=== PATIENT | male | born 1945 | race Caucasian/White ===

== ENCOUNTER → 2016-11-12 | Outpatient (CLI) | payer OTHER ==
[2016-11-12 12:40] LABS: BLOOD UREA NITROGEN 12 mg/dl (7-18); BUN/CREATININE RATIO 11.1 (10-20); CALCIUM 10.4 mg/dl (8.5-10.1); CARBON DIOXIDE 26 mmol/L (21-32); CHLORIDE 107 mmol/L (98-107); CHOLESTEROL 141 mg/dl (0-200); GLUCOSE 117 mg/dl (70-99); POTASSIUM 4.5 mmol/L (3.5-5.1); SODIUM 140 mmol/L (136-145)
[2016-11-12 12:44] LABS: CHOLESTEROL/HDL RATIO 2.4; HDL CHOLESTEROL 59 mg/dl; TRIGLYCERIDES 105 mg/dl (0-150); VERY LOW DENSITY LIPOPROT CALC 21 mg/dl
[2016-11-12 13:05] LABS: ESTIMATED AVERAGE GLUCOSE 128 mg/dl; HA1C FLAG Normal (Normal)
== END | disposition home or self-care (01) ==
LOC: C.LABSPEC 12:08
PROVIDERS: ATTEND Internal Medicine
DX: R73.9 Hyperglycemia, unspecified (principal); I10 Essential (primary) hypertension; E78.5 Hyperlipidemia, unspecified

== ENCOUNTER → 2017-05-20 | Outpatient (CLI) | payer OTHER ==
[2017-05-20 12:53] LABS: BLOOD UREA NITROGEN 12 mg/dl (7-18); BUN/CREATININE RATIO 11.3 (10-20); CARBON DIOXIDE 26 mmol/L (21-32); CHLORIDE 110 mmol/L (98-107); CHOLESTEROL 145 mg/dl (0-200); GLUCOSE 121 mg/dl (70-99); POTASSIUM 4.6 mmol/L (3.5-5.1); SODIUM 142 mmol/L (136-145); TRIGLYCERIDES 111 mg/dl (0-150); VERY LOW DENSITY LIPOPROT CALC 22 mg/dl
[2017-05-20 12:58] LABS: CHOLESTEROL/HDL RATIO 2.1; HDL CHOLESTEROL 69 mg/dl
[2017-05-20 13:06] LABS: ESTIMATED AVERAGE GLUCOSE 123 mg/dl; HA1C FLAG Normal (Normal)
== END | disposition home or self-care (01) ==
LOC: C.LABSPEC 12:14
PROVIDERS: ATTEND Internal Medicine
DX: Z00.00 Encounter for general adult medical examination without abnormal findings (principal); R73.9 Hyperglycemia, unspecified; E78.5 Hyperlipidemia, unspecified; I10 Essential (primary) hypertension

== ENCOUNTER → 2017-05-26 | Outpatient (CLI) | payer OTHER ==
[2017-05-26 12:51] LABS: MEAN CORPUSCULAR HGB CONC 32.4 g/dl (32-36); MEAN PLATELET VOLUME 10.9 fL (7.4-10.4); PLATELET COUNT 249 K/uL (130-400)
[2017-05-26 13:15] LABS: BASO ABS # 0.07 K/uL (0-0.2); BASOPHIL % 0.9 % (0-2); COMPLETE YES; EOSINOPHIL % 1.8 %; HEMATOCRIT 47.6 % (42-52); LYMPH ABS # 0.91 K/uL (1.2-3.4); LYMPHOCYTE % 11.5 %; MEAN CELL VOLUME 93.2 fL (80-100); MEAN CORPUSCULAR HEMOGLOBIN 30.1 pg (25-34); NEUTROPHILS % 48.7 %; RED BLOOD COUNT 5.11 M/uL (4.7-6.1); VARIANT LYM ABS # 1.67 K/uL; VARIANT LYMPHOCYTE % 21.2 %; WHITE BLOOD COUNT 7.87 K/uL (4.8-10.8)
[2017-05-26 13:26] LABS: ALT/SGPT 26 U/L (12-78); BLOOD UREA NITROGEN 15 mg/dl (7-18); BUN/CREATININE RATIO 14.4 (10-20); CALCIUM 10.6 mg/dl (8.5-10.1); CARBON DIOXIDE 26 mmol/L (21-32); CHLORIDE 108 mmol/L (98-107); CREATININE 1.01 mg/dl (0.60-1.40); GLUCOSE 107 mg/dl (70-99); POTASSIUM 4.7 mmol/L (3.5-5.1); SODIUM 139 mmol/L (136-145)
[2017-05-26 13:29] LABS: ALB/GLOB RATIO 0.9 (0.9-2); ALKALINE PHOSPHATASE 77 U/L (45-117); AST/SGOT 18 U/L (15-37)
== END | disposition home or self-care (01) ==
LOC: C.LABSPEC 12:28
PROVIDERS: ATTEND Internal Medicine
DX: E87.5 Hyperkalemia (principal)

== ENCOUNTER → 2017-06-08 | Outpatient (CLI) | payer OTHER ==
--- NOTE | 2017-06-08 23:13 | DIAGNOSTIC IMAGING REPORT ---
NUCLEAR MEDICINE PARATHYROID SCAN CLINICAL HISTORY: HYPERPARATHYROIDISM. COMPARISON STUDY: No previous studies for comparison. TECHNIQUE: 21.6 mCi of technetium 99m Cardiolite was injected IV at 3:10 PM on June 08, 2017. Planar and SPECT imaging was performed 15 minutes and 3 hours following injection. FINDINGS: Expected radiotracer deposition is noted within the thyroid gland and salivary glands on the early images. Delayed images show faint radiotracer retention projecting over the lower pole of the left thyroid lobe. No additional areas of significant retention are present. No areas of abnormal radiotracer uptake are present. IMPRESSION: No definite evidence for parathyroid adenoma. However, small faint focus of radiotracer retention within or adjacent to the lower pole of the left thyroid lobe raises the possibility of a left inferior parathyroid adenoma. Electronically signed by: Moe Oden M.D. 06/08/2017 11:12 PM Dictated Date/Time: 06/08/2017 7:15 PM
== END | disposition home or self-care (01) ==
LOC: C.NUCL 14:52
PROVIDERS: ATTEND Internal Medicine
DX: E21.3 Hyperparathyroidism, unspecified (principal)

== ENCOUNTER → 2017-11-18 | Outpatient (CLI) | payer OTHER ==
[2017-11-18 13:10] LABS: HEMOGLOBIN A1C 5.9 % (4.5-5.6)
[2017-11-18 13:13] LABS: BLOOD UREA NITROGEN 13 mg/dl (7-18); CALCIUM 10.6 mg/dl (8.5-10.1); CARBON DIOXIDE 27 mmol/L (21-32); CREATININE 1.08 mg/dl (0.60-1.40); GLUCOSE 110 mg/dl (70-99); POTASSIUM 4.7 mmol/L (3.5-5.1); SODIUM 139 mmol/L (136-145)
[2017-11-18 13:21] LABS: CHOLESTEROL 166 mg/dl (0-200); LDL CHOLESTEROL (DIRECT) 89 mg/dl
== END | disposition home or self-care (01) ==
LOC: C.LABSPEC 12:40
PROVIDERS: ATTEND Internal Medicine
DX: E78.5 Hyperlipidemia, unspecified (principal); I10 Essential (primary) hypertension; R73.9 Hyperglycemia, unspecified

== ENCOUNTER 2020-10-29 14:33 | Inpatient (IN) ==
[2020-10-29] MEDS ORDERED: SODIUM CHLORIDE 0.9% 1000ML 1,000 ML IV ONE (14:42)
[2020-10-29] MEDS ORDERED: cefTRIAXone SODIUM 1,000 MG/50 ML BAG IV STA (14:42)
[2020-10-29 15:25] LABS: iSTAT Blood Urea Nitrogen > 140 mg/dl (7-18); iSTAT Carbon Dioxide 21 mmol/L (24-31); iSTAT Chloride 127 mmol/L (101-112); iSTAT Creatinine 5.1 mg/dl (0.6-1.3); iSTAT Glucose 192 mg/dl (70-99); iSTAT Hematocrit 51 % (42-52); iSTAT Hemoglobin 17.3 g/dl (14.0-18.0); iSTAT Ionized Calcium 1.37 mmol/l (1.12-1.32); iSTAT Potassium 5.4 mmol/L (3.3-5.0); iSTAT Sodium 152 mmol/L (135-144)
[2020-10-29 15:25] LABS: Basophils # (auto) 0.02 K/uL (0-0.2); Basophils % (auto) 0.1 %; Hematocrit (blood only) 52.1 % (42-52); Hemoglobin 17.8 g/dL (14.0-18.0); Immature Granulocytes # (auto) 0.11 K/uL (0.00-0.02); Immature Granulocytes % (auto) 0.7 %; Lymphocytes # (auto) 2.22 K/uL (1.2-3.4); Lymphocytes % (auto) 13.3 %; Mean Corpuscular Hemoglobin 32.1 pg (25-34); Mean Corpuscular Hgb Conc 34.2 g/dL (32-36); Mean Platelet Volume 12.9 fL (7.4-10.4); Monocytes # (auto) 0.18 K/uL (0.11-0.59); Monocytes % (auto) 1.1 %; Neutrophils # (auto) 14.15 K/uL (1.4-6.5); Neutrophils % (auto) 84.8 %; Platelet Count 250 K/uL (130-400); RDW Coefficient of Variation 14.8 % (11.5-14.5); RDW Standard Deviation 51.2 fL (36.4-46.3); Red Blood Count 5.54 M/uL (4.7-6.1); White Blood Count 16.68 K/uL (4.8-10.8)
--- NOTE | 2020-10-29 15:28 | Emergency Department Note ---
Impression & Plan Acute alteration in mental status, Acute renal failure, Pressure ulcer, Hypothermia ED Provider Note NAME: DEB MEYER AGE: 75 SEX: M : 1945 ARRIVES VIA: Ambulance INFORMANT: The police and the prehospital personnel ED PROVIDER(S): Karan Luong DO CHIEF COMPLAINT: Altered mental status HPI: The patient is a 75-year-old male who presented to the emergency department for an evaluation of altered mental status. The patient presented to the emergency department with his significant other. Neither patient is able to give us any history. Both patients are obtunded and hypothermic. The patient himself was found on the floor facedown right beside his bed. I am unsure the patient's past medical history. I am unsure the patient's social history. I am unsure of the last known well time. Given the patient's condition as well as the condition of the home it does appear that this is something that happened in the recent past. The patient himself offers no history. He only mumbles and sometimes answers to his name. There is been no reported trauma but the patient is covered in bruising as well as pressure ulcers. No medications were accompanying the patient to the hospital. I have no past medical history in our system that I can find at this time. ROS: See above HPI for pertinent positives & negatives. Review of systems was obtained from the prehospital personnel otherwise it was unobtainable. PAST MEDICAL HISTORY: See Below PAST SURGICAL HISTORY: See Below FAMILY HISTORY: See Below SOCIAL HISTORY: See Below HOME MEDICATIONS: See Below ALLERGIES: See Below VITALS: See Below PHYSICAL EXAMINATION: GENERAL: The patient is listless and does not respond to questions. He is flailing his extremities around at times. He is pulling at the IVs but he does not respond purposefully. EYES: The conjunctivae are clear. The pupils are round and reactive. EARS, NOSE, MOUTH AND THROAT: The nose is without any evidence of any deformity. Mucous membranes are dry. There are abrasions to the right side of the scalp. NECK: The neck is nontender and supple. RESPIRATORY: Shallow respirations were noted. Rhonchi were scattered throughout. CARDIOVASCULAR: Regular rate and rhythm noted there no murmurs rubs or gallops normal S1 normal S2. GASTROINTESTINAL: The abdomen is covered in ecchymosis especially over the right lower chest wall in the right upper abdomen. There is no specific tenderness guarding or rigidity elicited. MUSCULOSKELETAL/EXTREMITIES: There is no evidence of gross deformity full range of motion is noted in the hips and shoulders. SKIN: Skin is cold and dry. Trace pedal edema was noted bilaterally. The patient is covered in pressure ulcers especially over both knees hips the right side of the chest shoulders and also has bruising in differing stages over almost his entire body. NEUROLOGIC: The patient does not follow commands. He is moving all extremities. Unable to assess orientation at this time. MEDICAL DECISION MAKING: The patient was a very complicated patient who presented to the emergency department by ambulance with altered mental status. It was very difficult to ascertain the patient's history as he was obtunded and would not answer questions or follow commands. Patient had multiple pressure ulcers on the chest and lower extremities. He was treated initially with IV fluids because his physical exam overall appeared to be consistent with volume depletion. He was hypothermic and placed on a warming blanket. He was reevaluated multiple times. He received IV fluids and IV antibiotics for presumed infection. I discussed the patient's laboratory and radiographic studies with the on-call [facility] hospitalist. They have agreed to evaluate the patient in the emergency department for further management and disposition. The patient's primary care physician also noted that the patient was in the emergency department and called to give further history. Apparently the patient normally lives with his significant other but they are both independent and care for themselves. The patient significant other is also here today with a very similar presentation. Triage Nursing notes reviewed. Prior medical records reviewed Vital Signs: reviewed and remarkable for hypotension tachypnea and hypothermia. Differential diagnosis: Infection, hypoglycemia, electrolyte abnormalities, overdose, toxicologic, cardiac sources, intracerebral event, neurologic, trauma, as well as other pathologies. ER treatment provided: See below Diagnostics interpreted by me: ECG: EKG was obtained in the emergency department. My interpretation is normal sinus rhythm at 77 bpm. There is no ectopy. Inferior ST segment depressions were noted. Early transition was also appreciated. No previous EKG was available for comparison. Cardiac Monitoring: An order was placed for continuous cardiac monitoring. The monitor shows a rate of 89 bpm with sinus rhythm. Laboratory studies: As stated above and show below. Imaging studies: See below Consultation(s): 1640: I discussed this case with Dr. Wilson. ED COURSE: Procedures: Femoral Central Venous Catheter Indication: Hypotension Catheter Type: Triple-lumen Location: Left femoral vein Verbal consent was obtained after the risks and benefits were explained, including but not limited to intra-abdominal injury, vessel injury, bleeding, scarring, infection, pain, and bone/joint/nerve damage. At this time, the risks of the procedure are less than the risks of NOT performing the procedure. A time out was taken and the correct patient and site identified. The patient was placed in the supine position and the skin was prepped in the standard fashion with chlorhexidine and full sterile drapes applied. The proper landmarks were identified, anesthetized with 1% lidocaine without epinephrine, and the needle was inserted through the skin in the standard fashion. The needle was carefully advanced into blood vessel lumen. The guidewire was placed uneventfully. The vessel is dilated and the catheter was placed. It was sutured into position. There was good blood return from all ports. The patient tolerated the procedure well and there were no complications. PDMP:reviewed and no issues Critical Care: I have personally spent greater than 65 minutes of critical care time in the direct management of this patient. This includes bedside care, interpretation of diagnostic studies, and testing, discussion with consultants, patient, and family members, and other required patient management activities. This 65 minutes is in excess of all separately billable procedures. Past Med/Surg History Medical History (Updated 10/29/20 @ 19:22 by Karan Luong DO) High cholesterol Hypernatremia Hypertension Social History Smoking Status: Unknown if ever smoked Preferred Language: Kyrgyz Allergies Allergies Allergy/AdvReac Type Severity Reaction Status Date / Time No Known Allergies Unverified 10/29/20 15:32 Home Meds Home Medications Medication Instructions Recorded Confirmed Super Beta Prostate 1 tab PO DAILY 10/29/20 10/29/20 lisinopril 20 mg PO DAILY 10/29/20 10/29/20 simvastatin 20 mg PO DAILY 10/29/20 10/29/20 Results & Data (ED) Vital Signs Vital Signs - 24 hr 10/29/20 14:26 10/29/20 14:40 10/29/20 14:42 Temperature 33 C L Temperature Source Rectal Pulse Rate 60 96 H Pulse Rate from SpO2 Sensor 90 Respiratory Rate 20 31 H Respiratory Effort / Characteristics Spontaneous Labored Labored Blood Pressure 109/54 L 138/116 H Blood Pressure Mean 72 123 Pulse Oximetry 100 100 100 Oxygen Delivery Method Room Air Room Air Sepsis Recent Fever Within 48 Hours No Sepsis New/Unexplained Change in Mental Status Yes Sepsis Action Taken by Nursing Physician Notified 10/29/20 15:21 10/29/20 15:42 10/29/20 15:46 Temperature Temperature Source Pulse Rate 70 67 Pulse Rate from SpO2 Sensor 175 H 147 H Respiratory Rate 22 22 Respiratory Effort / Characteristics Blood Pressure 106/60 147/83 H 99/65 L Blood Pressure Mean 75 104 76 Pulse Oximetry 91 90 Oxygen Delivery Method Sepsis Recent Fever Within 48 Hours Sepsis New/Unexplained Change in Mental Status Sepsis Action Taken by Nursing 10/29/20 16:00 10/29/20 16:15 10/29/20 16:30 Temperature Temperature Source Pulse Rate 67 66 68 Pulse Rate from SpO2 Sensor 66 68 68 Respiratory Rate 21 21 22 Respiratory Effort / Characteristics Blood Pressure 111/61 109/54 L 98/52 L Blood Pressure Mean 77 72 67 Pulse Oximetry 100 100 100 Oxygen Delivery Method Sepsis Recent Fever Within 48 Hours Sepsis New/Unexplained Change in Mental Status Sepsis Action Taken by Nursing 10/29/20 16:46 10/29/20 17:00 10/29/20 17:16 Temperature Temperature Source Pulse Rate 71 Pulse Rate from SpO2 Sensor 72 76 70 Respiratory Rate 24 23 25 H Respiratory Effort / Characteristics Blood Pressure 102/56 L 120/58 L 90/57 L Blood Pressure Mean 71 78 68 Pulse Oximetry 100 98 100 Oxygen Delivery Method Sepsis Recent Fever Within 48 Hours Sepsis New/Unexplained Change in Mental Status Sepsis Action Taken by Nursing 10/29/20 17:30 10/29/20 17:45 10/29/20 18:00 Temperature Temperature Source Pulse Rate 67 67 73 Pulse Rate from SpO2 Sensor 67 66 79 Respiratory Rate 22 24 23 Respiratory Effort / Characteristics Blood Pressure 87/49 L 90/47 L 109/61 Blood Pressure Mean 61 61 77 Pulse Oximetry 100 100 100 Oxygen Delivery Method Sepsis Recent Fever Within 48 Hours Sepsis New/Unexplained Change in Mental Status Sepsis Action Taken by Nursing 10/29/20 18:15 10/29/20 18:28 10/29/20 18:30 Temperature Temperature Source Pulse Rate 75 79 75 Pulse Rate from SpO2 Sensor 75 83 76 Respiratory Rate 23 20 24 Respiratory Effort / Characteristics Blood Pressure 83/46 L 105/54 L 92/47 L Blood Pressure Mean 58 71 62 Pulse Oximetry 100 98 98 Oxygen Delivery Method Sepsis Recent Fever Within 48 Hours Sepsis New/Unexplained Change in Mental Status Sepsis Action Taken by Nursing 10/29/20 18:45 Temperature Temperature Source Pulse Rate 84 Pulse Rate from SpO2 Sensor 86 Respiratory Rate 25 H Respiratory Effort / Characteristics Blood Pressure 98/45 L Blood Pressure Mean 62 Pulse Oximetry 100 Oxygen Delivery Method Sepsis Recent Fever Within 48 Hours Sepsis New/Unexplained Change in Mental Status Sepsis Action Taken by [facility] Medications Current Medication List: was personally reviewed by me Laboratory Data Attestation: I reviewed the patient's lab results. Result diagrams: 10/29/20 14:59 10/29/20 16:08 Lab Results 10/29/20 10/29/20 10/29/20 Range/Units 14:52 14:52 14:59 WBC (4.8-10.8) K/uL RBC (4.7-6.1) M/uL Hgb (14.0-18.0) g/dL POC Hgb (14.0-18.0) g/dl Hct (42-52) % POC Hct (42-52) % MCV (80-100) fL MCH (25-34) pg MCHC (32-36) g/dL RDW Std Deviation (36.4-46.3) fL RDW Coeff of Juan (11.5-14.5) % Plt Count (130-400) K/uL MPV (7.4-10.4) fL Immature Gran % (Auto) % Neut % (Auto) % Lymph % (Auto) % [place] % (Auto) % Eos % (Auto) % Baso % (Auto) % Neut # (Auto) (1.4-6.5) K/uL Lymph # (Auto) (1.2-3.4) K/uL [place] # (Auto) (0.11-0.59) K/uL Eos # (Auto) (0-0.5) K/uL Baso # (Auto) (0-0.2) K/uL Immature Gran # (Auto) (0.00-0.02) K/uL PT INR APTT PTT Ratio VBG pH (7.36-7.41) VBG pCO2 (38-50) mmHg VBG pO2 mmHg VBG HCO3 mmol/L VBG O2 Saturation % VBG Base Excess mEq/L Carboxyhemoglobin % THgb Barometric Pressure mm/Hg POC Sodium (135-144) mmol/L Sodium POC Potassium (3.3-5.0) mmol/L Potassium POC Chloride (101-112) mmol/L Chloride Carbon Dioxide POC Total CO2 (24-31) mmol/L Anion Gap POC Anion Gap (16-25) mmol/L POC BUN (7-18) mg/dl BUN Creatinine POC Creatinine (0.6-1.3) mg/dl Est Cr Clr Drug Dosing Est GFR ( Amer) Est GFR (Non-Af Amer) BUN/Creatinine Ratio Glucose POC Glucose (other) (70-99) mg/dl Osmolality Lactate (0.4-2.0) mmol/L Calcium POC Ioniz Calcium Mick (1.12-1.32) mmol/l Magnesium Total Bilirubin AST ALT Alkaline Phosphatase Ammonia (11-32) umol/L Total Creatine Kinase CK-MB (CK-2) CK/CKMB % Calc Troponin I Total Protein Albumin Globulin Albumin/Globulin Ratio Procalcitonin TSH Urine Color Dark Yellow Urine Appearance Cloudy A (Clear) Urine pH 5.0 (4.5-7.5) Ur Specific [place] 1.022 (1.000-1.030) Urine Protein Negative (Negative) Urine Glucose (UA) Negative (Negative) Urine Ketones Trace H (Negative) Urine Blood 3+ H (Negative) Urine Nitrite Negative (Negative) Urine Bilirubin Negative (Negative) Urine Urobilinogen Negative (Negative) Ur Leukocyte Esterase Trace H (Negative) Urine WBC (Auto) 1-5 (0-5) /hpf Urine RBC (Auto) 5-10 H (0-4) /hpf U Hyaline Cast (Auto) >30 H (0-5) /lpf U Epithel Cells (Auto) 10-20 H (0-5) /lpf Urine Bacteria (Auto) Negative (Negative) Amorphous Sediment Present A (None Prsent) Granular Casts 1-5 H (0) /lpf Urine Yeast Not Reportable Urine Opiates Screen Neg (Neg) Ur Methadone, Qual Neg (Neg) Urine Barbiturates Neg (Neg) Ur Phencyclidine (PCP) Neg (Neg) U Amphetamin/Meth Scrn Neg (Neg) MDMA (Ecstasy) Screen Neg (Neg) U Benzodiazepines Scrn Neg (Neg) Ur Cocaine Metabolite Neg (Neg) U Marijuana (THC) Screen Neg (Neg) Ethyl Alcohol mg/dL (0-3) mg/dl COVID-19 Eval Order SARS-CoV-2 (PCR) (Negative) Influenza Type A (PCR) (Neg) Influenza Type B (PCR) (Neg) RSV (RT-PCR) (Neg) Blood Type Cancelled Antibody Screen Cancelled 10/29/20 10/29/20 10/29/20 Range/Units 14:59 14:59 14:59 WBC 16.68 H (4.8-10.8) K/uL RBC 5.54 (4.7-6.1) M/uL Hgb 17.8 (14.0-18.0) g/dL POC Hgb (14.0-18.0) g/dl Hct 52.1 H (42-52) % POC Hct (42-52) % MCV 94.0 (80-100) fL MCH 32.1 (25-34) pg MCHC 34.2 (32-36) g/dL RDW Std Deviation 51.2 H (36.4-46.3) fL RDW Coeff of Juan 14.8 H (11.5-14.5) % Plt Count 250 (130-400) K/uL MPV 12.9 H (7.4-10.4) fL Immature Gran % (Auto) 0.7 % Neut % (Auto) 84.8 % Lymph % (Auto) 13.3 % [place] % (Auto) 1.1 % Eos % (Auto) 0.0 % Baso % (Auto) 0.1 % Neut # (Auto) 14.15 H (1.4-6.5) K/uL Lymph # (Auto) 2.22 (1.2-3.4) K/uL [place] # (Auto) 0.18 (0.11-0.59) K/uL Eos # (Auto) 0.00 (0-0.5) K/uL Baso # (Auto) 0.02 (0-0.2) K/uL Immature Gran # (Auto) 0.11 H (0.00-0.02) K/uL PT Cancelled INR Cancelled APTT Cancelled PTT Ratio Cancelled VBG pH (7.36-7.41) VBG pCO2 (38-50) mmHg VBG pO2 mmHg VBG HCO3 mmol/L VBG O2 Saturation % VBG Base Excess mEq/L Carboxyhemoglobin % THgb Barometric Pressure mm/Hg POC Sodium (135-144) mmol/L Sodium Cancelled POC Potassium (3.3-5.0) mmol/L Potassium Cancelled POC Chloride (101-112) mmol/L Chloride Cancelled Carbon Dioxide Cancelled POC Total CO2 (24-31) mmol/L Anion Gap Cancelled POC Anion Gap (16-25) mmol/L POC BUN (7-18) mg/dl BUN Cancelled Creatinine Cancelled POC Creatinine (0.6-1.3) mg/dl Est Cr Clr Drug Dosing Cancelled Est GFR ( Amer) Cancelled Est GFR (Non-Af Amer) Cancelled BUN/Creatinine Ratio Cancelled Glucose Cancelled POC Glucose (other) (70-99) mg/dl Osmolality Lactate (0.4-2.0) mmol/L Calcium Cancelled POC Ioniz Calcium Mick (1.12-1.32) mmol/l Magnesium Cancelled Total Bilirubin Cancelled AST Cancelled ALT Cancelled Alkaline Phosphatase Cancelled Ammonia (11-32) umol/L Total Creatine Kinase Cancelled CK-MB (CK-2) Cancelled CK/CKMB % Calc Cancelled Troponin I Cancelled Total Protein Cancelled Albumin Cancelled Globulin Cancelled Albumin/Globulin Ratio Cancelled Procalcitonin TSH Cancelled Urine Color Urine Appearance (Clear) Urine pH (4.5-7.5) Ur Specific [place] (1.000-1.030) Urine Protein (Negative) Urine Glucose (UA) (Negative) Urine Ketones (Negative) Urine Blood (Negative) Urine Nitrite (Negative) Urine Bilirubin (Negative) Urine Urobilinogen (Negative) Ur Leukocyte Esterase (Negative) Urine WBC (Auto) (0-5) /hpf Urine RBC (Auto) (0-4) /hpf U Hyaline Cast (Auto) (0-5) /lpf U Epithel Cells (Auto) (0-5) /lpf Urine Bacteria (Auto) (Negative) Amorphous Sediment (None Prsent) Granular Casts (0) /lpf Urine Yeast Urine Opiates Screen (Neg) Ur Methadone, Qual (Neg) Urine Barbiturates (Neg) Ur Phencyclidine (PCP) (Neg) U Amphetamin/Meth Scrn (Neg) MDMA (Ecstasy) Screen (Neg) U Benzodiazepines Scrn (Neg) Ur Cocaine Metabolite (Neg) U Marijuana (THC) Screen (Neg) Ethyl Alcohol mg/dL (0-3) mg/dl COVID-19 Eval Order SARS-CoV-2 (PCR) (Negative) Influenza Type A (PCR) (Neg) Influenza Type B (PCR) (Neg) RSV (RT-PCR) (Neg) Blood Type Antibody Screen 10/29/20 10/29/20 10/29/20 Range/Units 14:59 14:59 14:59 WBC (4.8-10.8) K/uL RBC (4.7-6.1) M/uL Hgb (14.0-18.0) g/dL POC Hgb (14.0-18.0) g/dl Hct (42-52) % POC Hct (42-52) % MCV (80-100) fL MCH (25-34) pg MCHC (32-36) g/dL RDW Std Deviation (36.4-46.3) fL RDW Coeff of Juan (11.5-14.5) % Plt Count (130-400) K/uL MPV (7.4-10.4) fL Immature Gran % (Auto) % Neut % (Auto) % Lymph % (Auto) % [place] % (Auto) % Eos % (Auto) % Baso % (Auto) % Neut # (Auto) (1.4-6.5) K/uL Lymph # (Auto) (1.2-3.4) K/uL [place] # (Auto) (0.11-0.59) K/uL Eos # (Auto) (0-0.5) K/uL Baso # (Auto) (0-0.2) K/uL Immature Gran # (Auto) (0.00-0.02) K/uL PT INR APTT PTT Ratio VBG pH (7.36-7.41) VBG pCO2 (38-50) mmHg VBG pO2 mmHg VBG HCO3 mmol/L VBG O2 Saturation % VBG Base Excess mEq/L Carboxyhemoglobin % THgb Barometric Pressure mm/Hg POC Sodium (135-144) mmol/L Sodium POC Potassium (3.3-5.0) mmol/L Potassium POC Chloride (101-112) mmol/L Chloride Carbon Dioxide POC Total CO2 (24-31) mmol/L Anion Gap POC Anion Gap (16-25) mmol/L POC BUN (7-18) mg/dl BUN Creatinine POC Creatinine (0.6-1.3) mg/dl Est Cr Clr Drug Dosing Est GFR ( Amer) Est GFR (Non-Af Amer) BUN/Creatinine Ratio Glucose POC Glucose (other) (70-99) mg/dl Osmolality Cancelled Lactate 4.4 H* (0.4-2.0) mmol/L Calcium POC Ioniz Calcium Mick (1.12-1.32) mmol/l Magnesium Total Bilirubin AST ALT Alkaline Phosphatase Ammonia 21.4 (11-32) umol/L Total Creatine Kinase CK-MB (CK-2) CK/CKMB % Calc Troponin I Total Protein Albumin Globulin Albumin/Globulin Ratio Procalcitonin TSH Urine Color Urine Appearance (Clear) Urine pH (4.5-7.5) Ur Specific [place] (1.000-1.030) Urine Protein (Negative) Urine Glucose (UA) (Negative) Urine Ketones (Negative) Urine Blood (Negative) Urine Nitrite (Negative) Urine Bilirubin (Negative) Urine Urobilinogen (Negative) Ur Leukocyte Esterase (Negative) Urine WBC (Auto) (0-5) /hpf Urine RBC (Auto) (0-4) /hpf U Hyaline Cast (Auto) (0-5) /lpf U Epithel Cells (Auto) (0-5) /lpf Urine Bacteria (Auto) (Negative) Amorphous Sediment (None Prsent) Granular Casts (0) /lpf Urine Yeast Urine Opiates Screen (Neg) Ur Methadone, Qual (Neg) Urine Barbiturates (Neg) Ur Phencyclidine (PCP) (Neg) U Amphetamin/Meth Scrn (Neg) MDMA (Ecstasy) Screen (Neg) U Benzodiazepines Scrn (Neg) Ur Cocaine Metabolite (Neg) U Marijuana (THC) Screen (Neg) Ethyl Alcohol mg/dL (0-3) mg/dl COVID-19 Eval Order SARS-CoV-2 (PCR) (Negative) Influenza Type A (PCR) (Neg) Influenza Type B (PCR) (Neg) RSV (RT-PCR) (Neg) Blood Type Antibody Screen 10/29/20 10/29/20 10/29/20 Range/Units 14:59 14:59 14:59 WBC (4.8-10.8) K/uL RBC (4.7-6.1) M/uL Hgb (14.0-18.0) g/dL POC Hgb (14.0-18.0) g/dl Hct (42-52) % POC Hct (42-52) % MCV (80-100) fL MCH (25-34) pg MCHC (32-36) g/dL RDW Std Deviation (36.4-46.3) fL RDW Coeff of Juan (11.5-14.5) % Plt Count (130-400) K/uL MPV (7.4-10.4) fL Immature Gran % (Auto) % Neut % (Auto) % Lymph % (Auto) % [place] % (Auto) % Eos % (Auto) % Baso % (Auto) % Neut # (Auto) (1.4-6.5) K/uL Lymph # (Auto) (1.2-3.4) K/uL [place] # (Auto) (0.11-0.59) K/uL Eos # (Auto) (0-0.5) K/uL Baso # (Auto) (0-0.2) K/uL Immature Gran # (Auto) (0.00-0.02) K/uL PT INR APTT PTT Ratio VBG pH 7.35 L (7.36-7.41) VBG pCO2 36 L (38-50) mmHg VBG pO2 39 mmHg VBG HCO3 20 mmol/L VBG O2 Saturation 70.2 % VBG Base Excess -5.1 mEq/L Carboxyhemoglobin % THgb Barometric Pressure 738.4 mm/Hg POC Sodium (135-144) mmol/L Sodium POC Potassium (3.3-5.0) mmol/L Potassium POC Chloride (101-112) mmol/L Chloride Carbon Dioxide POC Total CO2 (24-31) mmol/L Anion Gap POC Anion Gap (16-25) mmol/L POC BUN (7-18) mg/dl BUN Creatinine POC Creatinine (0.6-1.3) mg/dl Est Cr Clr Drug Dosing Est GFR ( Amer) Est GFR (Non-Af Amer) BUN/Creatinine Ratio Glucose POC Glucose (other) (70-99) mg/dl Osmolality Lactate (0.4-2.0) mmol/L Calcium POC Ioniz Calcium Mick (1.12-1.32) mmol/l Magnesium Total Bilirubin AST ALT Alkaline Phosphatase Ammonia (11-32) umol/L Total Creatine Kinase CK-MB (CK-2) CK/CKMB % Calc Troponin I Total Protein Albumin Globulin Albumin/Globulin Ratio Procalcitonin Cancelled TSH Urine Color Urine Appearance (Clear) Urine pH (4.5-7.5) Ur Specific [place] (1.000-1.030) Urine Protein (Negative) Urine Glucose (UA) (Negative) Urine Ketones (Negative) Urine Blood (Negative) Urine Nitrite (Negative) Urine Bilirubin (Negative) Urine Urobilinogen (Negative) Ur Leukocyte Esterase (Negative) Urine WBC (Auto) (0-5) /hpf Urine RBC (Auto) (0-4) /hpf U Hyaline Cast (Auto) (0-5) /lpf U Epithel Cells (Auto) (0-5) /lpf Urine Bacteria (Auto) (Negative) Amorphous Sediment (None Prsent) Granular Casts (0) /lpf Urine Yeast Urine Opiates Screen (Neg) Ur Methadone, Qual (Neg) Urine Barbiturates (Neg) Ur Phencyclidine (PCP) (Neg) U Amphetamin/Meth Scrn (Neg) MDMA (Ecstasy) Screen (Neg) U Benzodiazepines Scrn (Neg) Ur Cocaine Metabolite (Neg) U Marijuana (THC) Screen (Neg) Ethyl Alcohol mg/dL < 3.0 (0-3) mg/dl COVID-19 Eval Order SARS-CoV-2 (PCR) (Negative) Influenza Type A (PCR) (Neg) Influenza Type B (PCR) (Neg) RSV (RT-PCR) (Neg) Blood Type Antibody Screen 10/29/20 10/29/20 10/29/20 Range/Units 14:59 15:00 15:00 WBC (4.8-10.8) K/uL RBC (4.7-6.1) M/uL Hgb (14.0-18.0) g/dL POC Hgb (14.0-18.0) g/dl Hct (42-52) % POC Hct (42-52) % MCV (80-100) fL MCH (25-34) pg MCHC (32-36) g/dL RDW Std Deviation (36.4-46.3) fL RDW Coeff of Juan (11.5-14.5) % Plt Count (130-400) K/uL MPV (7.4-10.4) fL Immature Gran % (Auto) % Neut % (Auto) % Lymph % (Auto) % [place] % (Auto) % Eos % (Auto) % Baso % (Auto) % Neut # (Auto) (1.4-6.5) K/uL Lymph # (Auto) (1.2-3.4) K/uL [place] # (Auto) (0.11-0.59) K/uL Eos # (Auto) (0-0.5) K/uL Baso # (Auto) (0-0.2) K/uL Immature Gran # (Auto) (0.00-0.02) K/uL PT INR APTT PTT Ratio VBG pH (7.36-7.41) VBG pCO2 (38-50) mmHg VBG pO2 mmHg VBG HCO3 mmol/L VBG O2 Saturation % VBG Base Excess mEq/L Carboxyhemoglobin 0.0 % THgb Barometric Pressure mm/Hg POC Sodium (135-144) mmol/L Sodium POC Potassium (3.3-5.0) mmol/L Potassium POC Chloride (101-112) mmol/L Chloride Carbon Dioxide POC Total CO2 (24-31) mmol/L Anion Gap POC Anion Gap (16-25) mmol/L POC BUN (7-18) mg/dl BUN Creatinine POC Creatinine (0.6-1.3) mg/dl Est Cr Clr Drug Dosing Est GFR ( Amer) Est GFR (Non-Af Amer) BUN/Creatinine Ratio Glucose POC Glucose (other) (70-99) mg/dl Osmolality Lactate (0.4-2.0) mmol/L Calcium POC Ioniz Calcium Mick (1.12-1.32) mmol/l Magnesium Total Bilirubin AST ALT Alkaline Phosphatase Ammonia (11-32) umol/L Total Creatine Kinase CK-MB (CK-2) CK/CKMB % Calc Troponin I Total Protein Albumin Globulin Albumin/Globulin Ratio Procalcitonin TSH Urine Color Urine Appearance (Clear) Urine pH (4.5-7.5) Ur Specific [place] (1.000-1.030) Urine Protein (Negative) Urine Glucose (UA) (Negative) Urine Ketones (Negative) Urine Blood (Negative) Urine Nitrite (Negative) Urine Bilirubin (Negative) Urine Urobilinogen (Negative) Ur Leukocyte Esterase (Negative) Urine WBC (Auto) (0-5) /hpf Urine RBC (Auto) (0-4) /hpf U Hyaline Cast (Auto) (0-5) /lpf U Epithel Cells (Auto) (0-5) /lpf Urine Bacteria (Auto) (Negative) Amorphous Sediment (None Prsent) Granular Casts (0) /lpf Urine Yeast Urine Opiates Screen (Neg) Ur Methadone, Qual (Neg) Urine Barbiturates (Neg) Ur Phencyclidine (PCP) (Neg) U Amphetamin/Meth Scrn (Neg) MDMA (Ecstasy) Screen (Neg) U Benzodiazepines Scrn (Neg) Ur Cocaine Metabolite (Neg) U Marijuana (THC) Screen (Neg) Ethyl Alcohol mg/dL (0-3) mg/dl COVID-19 Eval Order CovFluRsv at [facility] SARS-CoV-2 (PCR) NEGATIVE (Negative) Influenza Type A (PCR) Negative (Neg) Influenza Type B (PCR) Negative (Neg) RSV (RT-PCR) Negative (Neg) Blood Type Antibody Screen 10/29/20 10/29/20 10/29/20 Range/Units 15:12 16:08 16:08 WBC (4.8-10.8) K/uL RBC (4.7-6.1) M/uL Hgb (14.0-18.0) g/dL POC Hgb 17.3 (14.0-18.0) g/dl Hct (42-52) % POC Hct 51 (42-52) % MCV (80-100) fL MCH (25-34) pg MCHC (32-36) g/dL RDW Std Deviation (36.4-46.3) fL RDW Coeff of Juan (11.5-14.5) % Plt Count (130-400) K/uL MPV (7.4-10.4) fL Immature Gran % (Auto) % Neut % (Auto) % Lymph % (Auto) % [place] % (Auto) % Eos % (Auto) % Baso % (Auto) % Neut # (Auto) (1.4-6.5) K/uL Lymph # (Auto) (1.2-3.4) K/uL Taliaferro # (Auto) (0.11-0.59) K/uL Eos # (Auto) (0-0.5) K/uL Baso # (Auto) (0-0.2) K/uL Immature Gran # (Auto) (0.00-0.02) K/uL PT 12.0 INR 1.2 H APTT 23.0 PTT Ratio 0.9 VBG pH (7.36-7.41) VBG pCO2 (38-50) mmHg VBG pO2 mmHg VBG HCO3 mmol/L VBG O2 Saturation % VBG Base Excess mEq/L Carboxyhemoglobin % THgb Barometric Pressure mm/Hg POC Sodium 152 H (135-144) mmol/L Sodium POC Potassium 5.4 H (3.3-5.0) mmol/L Potassium POC Chloride 127 H (101-112) mmol/L Chloride Carbon Dioxide POC Total CO2 21 L (24-31) mmol/L Anion Gap POC Anion Gap 10.0 L (16-25) mmol/L POC BUN > 140 H* (7-18) mg/dl BUN Creatinine POC Creatinine 5.1 H* (0.6-1.3) mg/dl Est Cr Clr Drug Dosing Est GFR ( Amer) Est GFR (Non-Af Amer) BUN/Creatinine Ratio Glucose POC Glucose (other) 192 H (70-99) mg/dl Osmolality 405 H* Lactate (0.4-2.0) mmol/L Calcium POC Ioniz Calcium Mick 1.37 H (1.12-1.32) mmol/l Magnesium Total Bilirubin AST ALT Alkaline Phosphatase Ammonia (11-32) umol/L Total Creatine Kinase CK-MB (CK-2) CK/CKMB % Calc Troponin I Total Protein Albumin Globulin Albumin/Globulin Ratio Procalcitonin TSH Urine Color Urine Appearance (Clear) Urine pH (4.5-7.5) Ur Specific [place] (1.000-1.030) Urine Protein (Negative) Urine Glucose (UA) (Negative) Urine Ketones (Negative) Urine Blood (Negative) Urine Nitrite (Negative) Urine Bilirubin (Negative) Urine Urobilinogen (Negative) Ur Leukocyte Esterase (Negative) Urine WBC (Auto) (0-5) /hpf Urine RBC (Auto) (0-4) /hpf U Hyaline Cast (Auto) (0-5) /lpf U Epithel Cells (Auto) (0-5) /lpf Urine Bacteria (Auto) (Negative) Amorphous Sediment (None Prsent) Granular Casts (0) /lpf Urine Yeast Urine Opiates Screen (Neg) Ur Methadone, Qual (Neg) Urine Barbiturates (Neg) Ur Phencyclidine (PCP) (Neg) U Amphetamin/Meth Scrn (Neg) MDMA (Ecstasy) Screen (Neg) U Benzodiazepines Scrn (Neg) Ur Cocaine Metabolite (Neg) U Marijuana (THC) Screen (Neg) Ethyl Alcohol mg/dL (0-3) mg/dl COVID-19 Eval Order SARS-CoV-2 (PCR) (Negative) Influenza Type A (PCR) (Neg) Influenza Type B (PCR) (Neg) RSV (RT-PCR) (Neg) Blood Type Antibody Screen 10/29/20 10/29/20 10/29/20 Range/Units 16:08 16:08 16:59 WBC (4.8-10.8) K/uL RBC (4.7-6.1) M/uL Hgb (14.0-18.0) g/dL POC Hgb (14.0-18.0) g/dl Hct (42-52) % POC Hct (42-52) % MCV (80-100) fL MCH (25-34) pg MCHC (32-36) g/dL RDW Std Deviation (36.4-46.3) fL RDW Coeff of Juan (11.5-14.5) % Plt Count (130-400) K/uL MPV (7.4-10.4) fL Immature Gran % (Auto) % Neut % (Auto) % Lymph % (Auto) % Taliaferro % (Auto) % Eos % (Auto) % Baso % (Auto) % Neut # (Auto) (1.4-6.5) K/uL Lymph # (Auto) (1.2-3.4) K/uL [place] # (Auto) (0.11-0.59) K/uL Eos # (Auto) (0-0.5) K/uL Baso # (Auto) (0-0.2) K/uL Immature Gran # (Auto) (0.00-0.02) K/uL PT INR APTT PTT Ratio VBG pH (7.36-7.41) VBG pCO2 (38-50) mmHg VBG pO2 mmHg VBG HCO3 mmol/L VBG O2 Saturation % VBG Base Excess mEq/L Carboxyhemoglobin % THgb Barometric Pressure mm/Hg POC Sodium (135-144) mmol/L Sodium 160 H* POC Potassium (3.3-5.0) mmol/L Potassium 3.6 POC Chloride (101-112) mmol/L Chloride 132 H Carbon Dioxide 15 L POC Total CO2 (24-31) mmol/L Anion Gap 13.0 H POC Anion Gap (16-25) mmol/L POC BUN (7-18) mg/dl BUN 156 H Creatinine 3.61 H POC Creatinine (0.6-1.3) mg/dl Est Cr Clr Drug Dosing 20.4 Est GFR ( Amer) 18.1 Est GFR (Non-Af Amer) 15.6 BUN/Creatinine Ratio 43.2 H Glucose 176 H POC Glucose (other) (70-99) mg/dl Osmolality Lactate 2.8 H* (0.4-2.0) mmol/L Calcium 8.3 L POC Ioniz Calcium Mick (1.12-1.32) mmol/l Magnesium 2.6 H Total Bilirubin 0.4 AST 64 H ALT 108 H Alkaline Phosphatase 54 Ammonia (11-32) umol/L Total Creatine Kinase 1602 H CK-MB (CK-2) 22.3 H CK/CKMB % Calc 1.4 Troponin I 0.034 Total Protein 4.7 L Albumin 2.0 L Globulin 2.7 Albumin/Globulin Ratio 0.7 L Procalcitonin 0.25 TSH 0.719 Urine Color Urine Appearance (Clear) Urine pH (4.5-7.5) Ur Specific [place] (1.000-1.030) Urine Protein (Negative) Urine Glucose (UA) (Negative) Urine Ketones (Negative) Urine Blood (Negative) Urine Nitrite (Negative) Urine Bilirubin (Negative) Urine Urobilinogen (Negative) Ur Leukocyte Esterase (Negative) Urine WBC (Auto) (0-5) /hpf Urine RBC (Auto) (0-4) /hpf U Hyaline Cast (Auto) (0-5) /lpf U Epithel Cells (Auto) (0-5) /lpf Urine Bacteria (Auto) (Negative) Amorphous Sediment (None Prsent) Granular Casts (0) /lpf Urine Yeast Urine Opiates Screen (Neg) Ur Methadone, Qual (Neg) Urine Barbiturates (Neg) Ur Phencyclidine (PCP) (Neg) U Amphetamin/Meth Scrn (Neg) MDMA (Ecstasy) Screen (Neg) U Benzodiazepines Scrn (Neg) Ur Cocaine Metabolite (Neg) U Marijuana (THC) Screen (Neg) Ethyl Alcohol mg/dL (0-3) mg/dl COVID-19 Eval Order SARS-CoV-2 (PCR) (Negative) Influenza Type A (PCR) (Neg) Influenza Type B (PCR) (Neg) RSV (RT-PCR) (Neg) Blood Type Antibody Screen 10/29/20 10/29/20 Range/Units 17:01 17:01 WBC (4.8-10.8) K/uL RBC (4.7-6.1) M/uL Hgb (14.0-18.0) g/dL POC Hgb (14.0-18.0) g/dl Hct (42-52) % POC Hct (42-52) % MCV (80-100) fL MCH (25-34) pg MCHC (32-36) g/dL RDW Std Deviation (36.4-46.3) fL RDW Coeff of Juan (11.5-14.5) % Plt Count (130-400) K/uL MPV (7.4-10.4) fL Immature Gran % (Auto) % Neut % (Auto) % Lymph % (Auto) % [place]ferro % (Auto) % Eos % (Auto) % Baso % (Auto) % Neut # (Auto) (1.4-6.5) K/uL Lymph # (Auto) (1.2-3.4) K/uL [place] # (Auto) (0.11-0.59) K/uL Eos # (Auto) (0-0.5) K/uL Baso # (Auto) (0-0.2) K/uL Immature Gran # (Auto) (0.00-0.02) K/uL PT INR APTT PTT Ratio VBG pH (7.36-7.41) VBG pCO2 (38-50) mmHg VBG pO2 mmHg VBG HCO3 mmol/L VBG O2 Saturation % VBG Base Excess mEq/L Carboxyhemoglobin % THgb Barometric Pressure mm/Hg POC Sodium (135-144) mmol/L Sodium POC Potassium (3.3-5.0) mmol/L Potassium POC Chloride (101-112) mmol/L Chloride Carbon Dioxide POC Total CO2 (24-31) mmol/L Anion Gap POC Anion Gap (16-25) mmol/L POC BUN (7-18) mg/dl BUN Creatinine POC Creatinine (0.6-1.3) mg/dl Est Cr Clr Drug Dosing Est GFR ( Amer) Est GFR (Non-Af Amer) BUN/Creatinine Ratio Glucose POC Glucose (other) (70-99) mg/dl Osmolality Lactate (0.4-2.0) mmol/L Calcium POC Ioniz Calcium Mick (1.12-1.32) mmol/l Magnesium Total Bilirubin AST ALT Alkaline Phosphatase Ammonia (11-32) umol/L Total Creatine Kinase CK-MB (CK-2) CK/CKMB % Calc Troponin I Total Protein Albumin Globulin Albumin/Globulin Ratio Procalcitonin TSH Urine Color Urine Appearance (Clear) Urine pH (4.5-7.5) Ur Specific [place] (1.000-1.030) Urine Protein (Negative) Urine Glucose (UA) (Negative) Urine Ketones (Negative) Urine Blood (Negative) Urine Nitrite (Negative) Urine Bilirubin (Negative) Urine Urobilinogen (Negative) Ur Leukocyte Esterase (Negative) Urine WBC (Auto) (0-5) /hpf Urine RBC (Auto) (0-4) /hpf U Hyaline Cast (Auto) (0-5) /lpf U Epithel Cells (Auto) (0-5) /lpf Urine Bacteria (Auto) (Negative) Amorphous Sediment (None Prsent) Granular Casts (0) /lpf Urine Yeast Urine Opiates Screen (Neg) Ur Methadone, Qual (Neg) Urine Barbiturates (Neg) Ur Phencyclidine (PCP) (Neg) U Amphetamin/Meth Scrn (Neg) MDMA (Ecstasy) Screen (Neg) U Benzodiazepines Scrn (Neg) Ur Cocaine Metabolite (Neg) U Marijuana (THC) Screen (Neg) Ethyl Alcohol mg/dL (0-3) mg/dl COVID-19 Eval Order [facility]Rsv at [facility] SARS-CoV-2 (PCR) NEGATIVE (Negative) Influenza Type A (PCR) Negative (Neg) Influenza Type B (PCR) Negative (Neg) RSV (RT-PCR) Negative (Neg) Blood Type Antibody Screen Administered Medications Sodium Bicarbonate 100 meq/ (Dextrose) 1,100 mls @ 200 mls/hr IV .Q5H30M MADDISON Stop: 11/28/20 19:44 Last Admin: 10/29/20 20:02 Dose: 200 mls/hr Documented by: [id number] Discontinued Medications Sodium Chloride (Nss 1000ml) 1,000 mls @ 999 mls/hr IV .Q1H1M ONE Stop: 10/29/20 15:42 Last Infusion: 10/29/20 16:35 Dose: 0 mls/hr Documented by: [id number] Admin: 10/29/20 15:35 Dose: 999 mls/hr Documented by: [id number] Ceftriaxone Sodium (Rocephin) 1,000 mg in 50 mls @ 100 mls/hr IV NOW STA Stop: 10/29/20 15:11 Last Infusion: 10/29/20 15:50 Dose: 0 mls/hr Documented by: [id number] Admin: 10/29/20 15:35 Dose: 100 mls/hr Documented by: [id number] Sodium Chloride (Nss 1000ml) 2,000 mls @ 999 mls/hr IV .Q2H1M ONE Stop: 10/29/20 17:47 Last Infusion: 10/29/20 18:30 Dose: 0 mls/hr Documented by: [id number] Admin: 10/29/20 16:33 Dose: 999 mls/hr Documented by: [id number] Sodium Chloride (1/2 Nss) 1,000 mls @ 125 mls/hr IV .Q8H MADDISON Stop: 11/28/20 17:29 Last Admin: 10/29/20 18:35 Dose: Not Given Documented by: [id number] Dextrose (D5w) 1,000 mls @ 125 mls/hr IV .Q8H MADDISON Stop: 11/28/20 17:59 Last Admin: 10/29/20 18:35 Dose: 125 mls/hr Documented by: [id number] Sodium Bicarbonate 100 meq/ (Dextrose) 600 mls @ 200 mls/hr IV .Q3H MADDISON Stop: 11/28/20 19:29 Last Admin: 10/29/20 19:44 Dose: 200 mls/hr Documented by: [id number] Imaging Data Radiologist's Impression: Patient: DEB MEYER Admit Date: 10/29/20 MR#: [id number] Address[address] Acct ID:[id number] Address2: Date: 1945 [facility] Zip: [place] [address] Age: 75 Location: ED Sex: M Room/Bed: Att Phy: Diagnosis: AMS Maki Phy: Wallace Frausto M.D. Service Date: 10/29/20 Fam Phy: Interpreting Phy: Moe Oden MD Admit Phy: Ordering Phy: Karan Luong DO cc: ~ CT OF THE CHEST WITHOUT IV CONTRAST CLINICAL HISTORY: Trauma. Found on floor. COMPARISON STUDY: No previous studies for comparison. TECHNIQUE: Axial images of the chest were obtained without IV contrast. Images were reviewed in the axial, sagittal, and coronal planes. IV contrast was not administered for this examination. Automated exposure control was utilized for the study. A dose lowering technique was utilized adhering to the principles of ALARA. FINDINGS: The thoracic aorta is suboptimally assessed on this unenhanced exam but there is no mediastinal hematoma. Cardiomegaly and coronary artery calcification is noted. There is no thoracic lymphadenopathy. A hiatal hernia is present. There is no pneumothorax or pulmonary contusion. Right upper lobe opacity reflects atelectasis. There is a cyst within the right lower lobe. Several calcified granulomas are present. There are no suspicious pulmonary nodules. There is no pneumothorax or pleural effusion. No acute rib or thoracic spine fractures identified. The abdomen and pelvis will be reported separately. A right hepatic dome lesion is suboptimally assessed on this unenhanced exam but favors a cyst. IMPRESSION: No acute traumatic findings within the chest. ACT 112: Negative or not required by law. Electronically signed by: Moe Oden M.D. 10/29/2020 3:46 PM Dictated: 10/29/20 1540 Transcribed: 10/29/20 1540 Patient: DEB MEYER Admit Date: 10/29/20 MR#: [id number] Address1: [address] Acct ID:[id number] Address2: Date: 1945 [facility] Zip: [place] [address] Age: 75 Location: ED Sex: M Room/Bed: Att Phy: Diagnosis: AMS Maki Phy: Wallace Frausto M.D. Service Date: 10/29/20 [facility] Phy: Interpreting Phy: Eric Lora MD Admit Phy: Ordering Phy: Karan Luong, cc: ~ CT SCAN OF THE ABDOMEN AND PELVIS WITHOUT CONTRAST CLINICAL HISTORY: Trauma. Patient found on floor. COMPARISON STUDY: No previous studies for comparison. TECHNIQUE: CT scan of the abdomen and pelvis was performed from the lung bases to the proximal femurs. Images are reviewed in the axial, sagittal, and coronal planes. IV contrast was not administered for this examination. A dose lowering technique was utilized adhering to the principles of ALARA. CT DOSE: 3008.76 mGy.cm FINDINGS: Lower chest: There is a 16mm right lower lobe lung cyst. There is a small hiatal hernia. There is respiratory motion artifact. Liver: There is a 11 mm hepatic hypodensity located medially beneath the diaphragm. This likely represents a cyst. There is a second too small to characterize 4 mm right hepatic lobe hypodensity. Gallbladder: The gallbladder demonstrates increased density. There is no pericholecystic inflammation. Spleen: Normal in size and attenuation. Pancreas: Unremarkable. Adrenal glands: There is mild bilateral adrenal gland thickening Kidneys: There are punctate right renal calculi. No ureteral or bladder calculi are visualized. Bowel: There are no transition zones indicate bowel obstruction. The appendix appears normal. There is no acute diverticulitis. Peritoneum: There is no intraperitoneal free air or abdominal ascites. Vasculature: There is ectasia of the infrarenal abdominal aorta which measures 29 mm. Adenopathy: None. Pelvic viscera: The prostate is enlarged. There is an indwelling Bah catheter. Skeletal structures: No destructive osseous lesions are seen. No fractures are visualized. There are advanced arthritic changes within the left hip. 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 No evidence of acute intra-abdominal or pelvic injury 2. No evidence of bowel obstruction. No evidence of free air 3. Nonobstructing punctate right renal calculi 4. Prostatomegaly 5. No acute inflammatory changes ACT 112: Negative or not required by law. Electronically signed by: Eric Lora M.D. 10/29/2020 3:46 PM Dictated: 10/29/20 1541 Transcribed: 10/29/20 1541 Patient: DEB MEYER Admit Date: 10/29/20 MR#: [id number] Address[address]: [address] Acct ID:[id number] Address2: Date: 1945 [facility] Zip: [place] [address] Age: 75 Location: ED Sex: M Room/Bed: Att Phy: Diagnosis: AMS Maki Phy: Wallace Frausto M.D. Service Date: 10/29/20 Fam Phy: Interpreting Phy: Eric Lora MD Admit Phy: Ordering Phy: Karan Luong, DO cc: ~ CT head/brain wo con CLINICAL HISTORY: Head pain status post trauma. Patient found on floor. COMPARISON STUDY: No previous studies for comparison. TECHNIQUE: Axial CT of the brain is performed from the vertex to the skull base. IV contrast was not administered for this examination. A dose lowering technique was utilized adhering to the principles of ALARA. CT DOSE: FINDINGS: No intra or extra-axial mass lesions are visualized. There is no CT evidence of acute cortical infarction. There is no evidence of midline shift. There is no acute hemorrhage. No calvarial fractures are visualized. There are patchy white matter hypodensities likely on a small vessel basis. 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 There is prominent extra-axial CSF space the frontal regions likely secondary to atrophy. There is no evidence of pathologic ventricular dilatation. There is a 5 mm right convexity scalp calcification There is no evidence of acute sinusitis IMPRESSION: No acute intracranial findings ACT 112: Negative or not required by law. Electronically signed by: Eric Lora M.D. 10/29/2020 3:39 PM Dictated: 10/29/20 1536 Transcribed: 10/29/20 1538 Patient: DEB MEYER Admit Date: 10/29/20 MR#: [id number] Address[address]: [address] Acct ID:[id number] Address2: Date: 1945 [facility] Zip: [place] [address] Age: 75 Location: ED Sex: M Room/Bed: Att Phy: Diagnosis: AMS Maki Phy: Wallace Frausto M.D. Service Date: 10/29/20 [facility] Phy: Interpreting Phy: Moe Oden MD Admit Phy: Ordering Phy: Karan Luong, DO cc: ~ CT OF THE CERVICAL SPINE WITHOUT CONTRAST CLINICAL HISTORY: Fall. COMPARISON STUDY: No previous studies for comparison. TECHNIQUE: Helical axial images of the cervical spine were obtained without IV contrast. Sagittal and coronal reconstructions were viewed. Automated exposure control was utilized for the study. A dose lowering technique was utilized adhe ring to the principles of ALARA. FINDINGS: Alignment of the cervical spine is anatomic. Vertebral body heights are maintained. No acute cervical spine fracture or subluxation is present. There is no prevertebral edema. Facet joints are intact. Note is made of moderate to severe disc space narrowing and osteophytosis at C4-C5 and C5-C6. There is moderate multilevel facet arthrosis. IMPRESSION: No acute cervical spine fracture or subluxation. ACT 112: Negative or not required by law. Electronically signed by: Moe Oden M.D. 10/29/2020 3:40 PM Dictated: 10/29/20 1536 Transcribed: 10/29/20 153 Discharge Plan Visit Data Chief Complaint: Altered Mental Status ED Provider: Karan Luong Discharge Problem: Acute alteration in mental status, Acute renal failure, Pressure ulcer, Hyp othermia Patient Disposition: Being Evaluated by Hospitalist Condition: Good Forms Stand Alone Forms: Blogic Prescriptions Prescriptions: No Action lisinopril 20 mg tablet 20 mg PO DAILY RF: 0 simvastatin 20 mg tablet 20 mg PO DAILY RF: 0 Super Beta Prostate tablet 1 tab PO DAILY RF: 0 Referrals Referrals: Wallace Holbrook MD [Primary Care Provider] - Discharge Problem: Acute renal failure Qualifiers: Acute renal failure type: unspecified Qualified Code(s): N17.9 - Acute kidney failure, unspecified Pressure ulcer Qualifiers: Pressure injury location: unspecified location Pressure injury stage: unspecified pressure injury stage Qualified Code(s): L89.90 - Pressure ulcer of unspecified site, unspecified stage Hypothermia Qualifiers: Encounter type: initial encounter Qualified Code(s): T68.XXXA - Hypothermia, initial encounter
[2020-10-29 15:35] LABS: Base Excess VBG -5.1 mEq/L; Oxygen Saturation VBG 70.2 %; pH VBG 7.35 (7.36-7.41)
--- NOTE | 2020-10-29 15:41 | CT Scan Report ---
CT head/brain wo con CLINICAL HISTORY: Head pain status post trauma. Patient found on floor. COMPARISON STUDY: No previous studies for comparison. TECHNIQUE: Axial CT of the brain is performed from the vertex to the skull base. IV contrast was not administered for this examination. A dose lowering technique was utilized adhering to the principles of ALARA. CT DOSE: FINDINGS: No intra or extra-axial mass lesions are visualized. There is no CT evidence of acute cortical infarc tion. There is no evidence of midline shift. There is no acute hemorrhage. No calvarial fractures ar e visualized. There are patchy white matter hypodensities likely on a small vessel basis. There are old lacunar inf arcts within the right basal ganglia. There is prominent extra-axial CSF space the frontal regions likely secondary to atrophy. There is no evidence of pathologic ventricular dilatation. There is a 5 mm right convexity scalp calcification There is no evidence of acute sinusitis IMPRESSION: No acute intracranial findings ACT 112: Negative or not required by law. Electronically signed by: Eric Lora M.D. 10/29/2020 3:39 PM
--- NOTE | 2020-10-29 15:42 | CT Scan Report ---
CT OF THE CERVICAL SPINE WITHOUT CONTRAST CLINICAL HISTORY: Fall. COMPARISON STUDY: No previous studies for comparison. TECHNIQUE: Helical axial images of the cervical spine were obtained without IV contrast. Sagittal a nd coronal reconstructions were viewed. Automated exposure control was utilized for the study. A do se lowering technique was utilized adhering to the principles of ALARA. FINDINGS: Alignment of the cervical spine is anatomic. Vertebral body heights are maintained. No acut e cervical spine fracture or subluxation is present. There is no prevertebral edema. Facet joints are intact. Note is made of moderate to severe disc space narrowing and osteophytosis at C4-C5 and C5-C 6. There is moderate multilevel facet arthrosis. IMPRESSION: No acute cervical spine fracture or subluxation. ACT 112: Negative or not required by law. Electronically signed by: Moe Oden M.D. 10/29/2020 3:40 PM
[2020-10-29] MEDS ORDERED: SODIUM CHLORIDE 0.9% 1000ML 2,000 ML IV ONE (15:47)
--- NOTE | 2020-10-29 15:48 | CT Scan Report ---
CT SCAN OF THE ABDOMEN AND PELVIS WITHOUT CONTRAST CLINICAL HISTORY: Trauma. Patient found on floor. COMPARISON STUDY: No previous studies for comparison. TECHNIQUE: CT scan of the abdomen and pelvis was performed from the lung bases to the proximal femurs . Images are reviewed in the axial, sagittal, and coronal planes. IV contrast was not administered fo r this examination. A dose lowering technique was utilized adhering to the principles of ALARA. CT DOSE: 3008.76 mGy.cm FINDINGS: Lower chest: There is a 16mm right lower lobe lung cyst. There is a small hiatal hernia. There is res piratory motion artifact. Liver: There is a 11 mm hepatic hypodensity located medially beneath the diaphragm. This likely repre sents a cyst. There is a second too small to characterize 4 mm right hepatic lobe hypodensity. Gallbladder: The gallbladder demonstrates increased density. There is no pericholecystic inflammation . Spleen: Normal in size and attenuation. Pancreas: Unremarkable. Adrenal glands: There is mild bilateral adrenal gland thickening Kidneys: There are punctate right renal calculi. No ureteral or bladder calculi are visualized. Bowel: There are no transition zones indicate bowel obstruction. The appendix appears normal. There i s no acute diverticulitis. Peritoneum: There is no intraperitoneal free air or abdominal ascites. Vasculature: There is ectasia of the infrarenal abdominal aorta which measures 29 mm. Adenopathy: None. Pelvic viscera: The prostate is enlarged. There is an indwelling Bah catheter. Skeletal structures: No destructive osseous lesions are seen. No fractures are visualized. There are advanced arthritic changes within the left hip. 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 No evidence of acute intra-abdominal or pelvic injury 2. No evidence of bowel obstruction. No evidence of free air 3. Nonobstructing punctate right renal calculi 4. Prostatomegaly 5. No acute inflammatory changes ACT 112: Negative or not required by law. Electronically signed by: Eric Lora M.D. 10/29/2020 3:46 PM
--- NOTE | 2020-10-29 15:48 | CT Scan Report ---
CT OF THE CHEST WITHOUT IV CONTRAST CLINICAL HISTORY: Trauma. Found on floor. COMPARISON STUDY: No previous studies for comparison. TECHNIQUE: Axial images of the chest were obtained without IV contrast. Images were reviewed in the axial, sagittal, and coronal planes. IV contrast was not administered for this examination. Automat ed exposure control was utilized for the study. A dose lowering technique was utilized adhering to t he principles of ALARA. FINDINGS: The thoracic aorta is suboptimally assessed on this unenhanced exam but there is no medias tinal hematoma. Cardiomegaly and coronary artery calcification is noted. There is no thoracic lymphad enopathy. A hiatal hernia is present. There is no pneumothorax or pulmonary contusion. Right upper lo be opacity reflects atelectasis. There is a cyst within the right lower lobe. Several calcified granu vasquez are present. There are no suspicious pulmonary nodules. There is no pneumothorax or pleural eff usion. No acute rib or thoracic spine fractures identified. The abdomen and pelvis will be reported s eparately. A right hepatic dome lesion is suboptimally assessed on this unenhanced exam but favors a cyst. IMPRESSION: No acute traumatic findings within the chest. ACT 112: Negative or not required by law. Electronically signed by: Moe Oden M.D. 10/29/2020 3:46 PM
[2020-10-29 16:03] LABS: Appearance Urine Cloudy (Clear); Bacteria Urine Automated Negative (Negative); Bilirubin Urine Negative (Negative); Blood Urine 3+ (Negative); Color Urine Dark Yellow; Glucose Urine UA Negative (Negative); Ketones Urine Trace (Negative); Leukocyte Esterase Urine Trace (Negative); Nitrite Urine Negative (Negative); Protein Urine Negative (Negative); Specific Gravity Urine 1.022 (1.000-1.030); Urobilinogen Urine Negative (Negative)
--- NOTE | 2020-10-29 16:21 | Electrocardiogram Report ---
Test Reason : Blood Pressure : / mmHG Vent. Rate : 077 BPM Atrial Rate : 077 BPM P-R Int : 120 ms QRS Dur : 094 ms QT Int : 400 ms P-R-T Axes : 068 -34 021 degrees QTc Int : 453 ms Normal sinus rhythm Left axis deviation Nonspecific ST abnormality Abnormal ECG No previous ECGs available Confirmed by Bennie Zambrano ([id number]) on 10/29/2020 4:21:19 PM Referred By: Confirmed By:Endy Zambrano
[2020-10-29 16:22] LABS: Amorphous Sediment Urine Present (None Prsent); Cast Urine Automated >30 /lpf (0-5)
[2020-10-29 16:27] LABS: INR 1.2 (0.9-1.1); Partial Thromboplastin Ratio 0.9
[2020-10-29 16:43] LABS: Influenza A virus by PCR Negative (Neg); Influenza B virus by PCR Negative (Neg); RSV by PCR Negative (Neg); SARS CoV2 RNA(COVID-19) InHosp NEGATIVE (Negative)
[2020-10-29 16:49] LABS: Amphetamines+Metham, Urine Neg (Neg); Barbiturates, Urine Neg (Neg); Benzodiazepine, Urine Neg (Neg); Cocaine, Urine Neg (Neg); MDMA (Ecstacy), Urine Neg (Neg); Methadone, Urine Neg (Neg); Opiate, Urine Neg (Neg); Phencyclidine, Urine Neg (Neg)
--- NOTE | 2020-10-29 17:12 | History & Physical Report ---
Date of Service October 29, 2020 Assessment & Plan (1) Encephalopathy: Etiology of encephalopathy is unclear clear likely there is some toxic encephalopathy from elevation of the BUN however infectious etiologies cannot be ruled out at this time. Subsequently patient will be hydrated with nephrology oversight to help his uremia type per natremia. Urine blood culture undertaken and Rocephin will be continued. He has significant skin injuries and likely his coverage may be brought in with more gram-positive favorable drug such as vancomycin or daptomycin. Imaging of his brain also was unremarkable for intracranial abnormalities. Cervical spine CT does not show any fractures in chest and abdomen pelvis CT did not show any acute findings within the thorax however these are noncontrast studies Overall his survivability is extremely poor given his constellation of laboratory abnormalities (2) Acute kidney failure: Charbel elevated BUN/creatinine likely based on dehydration possibly influenced by rhabdomyolysis, I personally spoke to nephrology they recommend half-normal saline at this point time and she will evaluate the patient in the emergency department. Potassium is stable at this time but awaiting for the laboratories (3) Hypothermia: Likely related to exposure patient is a warming blanket on will be undergoing warming protocol TSH is pending at this point time will obtain a random cortisol and a.m. cortisol. (4) Electrolyte abnormality: Patient's hyperkalemia is slight on [id number] and on serum and is 3.6 he does have elevation of his sodium of 160 and evidence of lactic acidosis and anion gap likely from decreased perfusion. His urine is abnormal as would be expected with acute kidney injury he was given Rocephin in the emergency department (5) Hyperglycemia: Patient know his has no history of diabetes we will continue to trend this with intensive care unit hyperglycemia protocol (6) Transaminitis: Will trend LFTs upcoming days likely from perfusion (7) Rhabdomyolysis: Awaiting CK numbers patient be hydrated if the CK is markedly elevated we will escalate his hydration with renal oversight (8) Elevated lactic acid level: As mentioned urine and blood cultures were obtained imaging of his chest does not show evidence of pneumonia patient be continued on antibiotics with concern on physical examination of left lower abdominal pain CT scan on pre sentation without contrast does not suggest diverticulitis or any intra- abdominal pathology etiology COVID-19 influenza and RSV are negative (9) DVT prophylaxis: Heparin subcu daily use for DVT prevention History of Present Illness Primary Care Provider: Wallace Holbrook MD 75-year-old male brought in with obtundation with acute renal failure hypothermia and evidence of likely being incapacitated with pressure sores for some time. At the time of this dictation the patient remains hypothermic he is some slight movement but is not cooperative appears to have some abdominal pain more in the left side. His is also here morbidly ill and she is Covid positive but he had tested Covid negative. I phoned the primary care provider to try to get information on next of kin or even DNR status and the primary care provider cannot supply me with anyone in fact the person identified as the living will field contact technician is since and there is no further people listed. Patient is morbidly ill at this point in time he will be admitted to the ntensive care unit I did personally speak to the intensive care unit doctor and also the supervisor tank cleaning on-call recommendations would be to continue some half- normal saline given his hyponatremia and wait for further laboratory testing. I did speak with the ship scraper about initiating therapy he said move the patient to the ICU and they will assume their care once he arrives. Did recommend repeat Covid testing as the is positive with Covid in this patient so far has been negative. Allergies Allergy/AdvReac Type Severity Reaction Status Date / Time No Known Allergies Unverified 10/29/20 15:32 Home Medications Medication Instructions Recorded Confirmed Type Super Beta Prostate 1 tab PO DAILY 10/29/20 10/29/20 History lisinopril 20 mg PO DAILY 10/29/20 10/29/20 History simvastatin 20 mg PO DAILY 10/29/20 10/29/20 History Past Med/Surg History Medical History (Updated 10/29/20 @ 17:34 by Hi Wilson MD) High cholesterol Hypertension Social History Smoking Status: Unknown if ever smoked Preferred Language: Montserratian Review of Systems Review of Systems: Unobtainable due to cognitive status Physical Exam Physical Exam: The patient appeared stated age. He has bruises about his body on the right hoahaoism the right chest wall just inferior to the nipple he has intertrigo about his lower abdominal fold and groin and he has 2 large bullae which are ecchymotic on both knees. Vital signs as documented. PERRL EOMI oropharynx is with reasonably moist mucous membranes he is wearing a mask Neck is without JVD, thyromegaly, or carotid bruits. Lungs are diminished at the bases but no focal loss Cardiac exam, Rhythm is regular.. Slight systolic ejection murmur is heard Abdominal exam reveals normal bowel sounds, soft patient is extremely tender in the left lower quadrant there is no rebound or rigidity Neurologic exam is arouses to name moves about pushes me away for examination Skin is with significant bruises as listed could not evaluate his posterior body due to his body size and inability for me to set him up myself Results & Data Results & Data ([facility]) Vital Signs (Past 12 Hours) Vital Signs Temp Pulse Resp BP Pulse Ox 10/29/20 16:15 66 21 109/54 L 100 10/29/20 16:00 67 21 111/61 100 10/29/20 15:46 67 22 99/65 L 90 10/29/20 15:42 70 22 147/83 H 91 10/29/20 15:21 106/60 10/29/20 14:42 100 10/29/20 14:40 96 H 31 H 138/116 H 100 10/29/20 14:26 91.4 F L 60 20 109/54 L 100 Code Status & VTE Plan VTE Prophylaxis Plan VTE Prophylaxis will be ordered: Yes PG Care Time/CCT Total # of Minutes Spent Total Time Spent with Patient: Total time spent is greater than 50% in coordination of care (as documented) at patient's floor/unit and/or counseling patient: Coding Level of Care Code 88879 Initial Inpt Care Lvl 3 Diagnoses Encephalopathy G93.40 Acute kidney failure N17.9 Hypothermia T68.XXXA Electrolyte abnormality E87.8 Hyperglycemia R73.9 Transaminitis R74.01 Rhabdomyolysis M62.82 Elevated lactic acid level R79.89 DVT prophylaxis Z29.9
[2020-10-29 17:21] LABS: Albumin Globulin Ratio 0.7 (0.9-2); Bilirubin,Total 0.4 mg/dl (0.2-1); Calcium 8.3 mg/dl (8.5-10.1); Creatinine Clr Calc Pharmacy 20.4 ml/min; Est GFR (African American) 18.1; Est GFR (Non-African American) 15.6; Globulin 2.7 gm/dl (2.5-4.0); Magnesium 2.6 mg/dl (1.8-2.4); Potassium 3.6 mmol/L (3.5-5.1); Total Protein 4.7 gm/dl (6.4-8.2)
[2020-10-29] MEDS ORDERED: SODIUM CHLORIDE 0.45 % 1,000 ML IV SCH (17:30)
[2020-10-29 17:33] LABS: BUN Creatinine Ratio 43.2 (10-20); Creatine Kinase MB 22.3 ng/ml (0.5-3.6); Thyroid Stimulating Hormone 0.719 uIu/ml (0.300-4.500); Troponin I 0.034 ng/ml (0-0.045)
--- NOTE | 2020-10-29 17:51 | Nephrology Consultation ---
Date of Consultation October 29, 2020 Assessment & Plan (1) Acute kidney failure: 75 -year-old male with unknown past medical history, brought to ER after found lying down on floor at home. On admission found to be hypothermic and hypotensive. Has RAMON hypernatremia and metabolic acidosis. CPK pending Unclear exactly what started the whole clinical deterioration as no detailed information about medical history and current medication available. However acute kidney injury, electrolyte abnormality and hypotension points toward significant volume depletion. CPK level pending --D5W with 100 meq bicarb in each liter @ 200 ml/h --check electrolyte every 12 hours --monitor intake and output and continue hemodynamic support --no urgent need for dialysis at this time Thank you for the consult. (2) Hypernatremia: History of Present Illness Reason for Consultation: Acute kidney injury and multiple electrolyte abnormality. History of Present Illness Jaspreet Miller is a 75-year-old male, brought to the hospital by EMS as he was found down at home on the Floor next to his bed. Nephrology consult was requested to manage RAMON and multiple electrolyte abnormality. Electronic medical records were reviewed in detail during patient's visit. Jaspreet was brought to ER by EMS, as he was found lying on the floor. His was also brought to ER at the same time was found down in her yard, minimally responsive. On admission he was hypothermic and hypotensive. Initially he received 2 L of normal saline and currently on normal saline infusion. No information available regarding past medical history, medications, no information in EMR. rapid COVID test was negative although his tested positive Creatinine was 3.6, BUN in 156, sodium 160, bicarb of 15. Bah catheter was placed and had dark, small amount urine output. CPK pending. CT abdomen pelvis without contrast was negative for postrenal obstruction. Blood pressure remained low. He is currently awake, moving his extremities but did not respond question or communicate in a meaningful way. Allergies Allergy/AdvReac Type Severity Reaction Status Date / Time No Known Allergies Unverified 10/29/20 15:32 Home Medications Medication Instructions Recorded Confirmed Type Super Beta Prostate 1 tab PO DAILY 10/29/20 10/29/20 History lisinopril 20 mg PO DAILY 10/29/20 10/29/20 History simvastatin 20 mg PO DAILY 10/29/20 10/29/20 History Patient History Medical History (Updated 10/29/20 @ 19:22 by Karan Luong DO) High cholesterol Hypernatremia Hypertension Social History Smoking Status: Unknown if ever smoked Preferred Language: Serbian Review of Systems Review of Systems: Unobtainable due to mental health condition Physical Exam Constitutional: + ill appearing and + lethargic Eyes: + anicteric sclerae; no conjunctival abnormality ENMT: Nose: + dry nasal mucous membranes Neck: normal visual inspection Respiratory: no respiratory distress and no cough Auscultation: no crackles, no rales and no wheezes Cardiovascular: RRR, no murmur, no edema Gastrointestinal (Abdomen): Inspection/Auscultation: normal bowel sounds Percussion/Palpation: abdomen soft; abdomen nontender, no guarding and abdomen not rigid Musculoskeletal: Extremities: extremities normal to inspection Gait: normal gait Skin: no rashes, warm and dry + rash and + lesion (on forhead) Neurologic: awake; no focal motor deficits Results & Data ([facility]) Vital Signs (Past 12 Hours) Vital Signs Temp Pulse Resp BP Pulse Ox 10/29/20 17:30 67 22 87/49 L 100 10/29/20 17:16 71 25 H 90/57 L 100 10/29/20 17:00 23 120/58 L 98 10/29/20 16:46 24 102/56 L 100 10/29/20 16:30 68 22 98/52 L 100 10/29/20 16:15 66 21 109/54 L 100 10/29/20 16:00 67 21 111/61 100 10/29/20 15:46 67 22 99/65 L 90 10/29/20 15:42 70 22 147/83 H 91 10/29/20 15:21 106/60 10/29/20 14:42 100 10/29/20 14:40 96 H 31 H 138/116 H 100 10/29/20 14:26 33 C L 60 20 109/54 L 100 PG Care Time/CCT Total # of Minutes Spent Total Time Spent with Patient: Total time spent is greater than 50% in coordination of care (as documented) at patient's floor/unit and/or counseling patient: Coding Level of Care Code 49028 Initial Inpt Care Lvl 3 Diagnoses Acute kidney failure N17.9 Hypernatremia E87.0
[2020-10-29] MEDS ORDERED: DEXTROSE 5% 1,000 ML IV SCH (18:00)
[2020-10-29] MEDS ORDERED: SODIUM BICARBONATE IV SCH (19:30)
[2020-10-29] MEDS ORDERED: DEXTROSE 5% IV SCH (19:30)
[2020-10-29 19:47] LABS: Influenza A virus by PCR Negative (Neg); Influenza B virus by PCR Negative (Neg); RSV by PCR Negative (Neg); SARS CoV2 RNA(COVID-19) InHosp NEGATIVE (Negative)
[2020-10-29] MEDS: SODIUM BICARBONATE 8.4% 100 MEQ in DEXTROSE 5% 1,000 ML IV SCH (20:02)
[2020-10-29] MEDS ORDERED: ICU PROTOCOL FOR HYPERGLYCEMIA PRN (20:47)
[2020-10-29] MEDS ORDERED: NOREPINEPHRINE/D5W 8 MG/508 ML IV ONE (20:48)
[2020-10-29] MEDS ORDERED: STAT IV Infusion **Titration per Protocol STA (21:07)
--- NOTE | 2020-10-29 21:07 | Critical Care Consultation ---
Date of Consultation October 29, 2020 Assessment & Plan (1) Admitted to intensive care unit: Reason Critically Ill: 75-year-old male with altered mental status likely secondary to hepatic encephalopathy in the setting of acuity of illness presenting with severe electrolyte derangements, rhabdomyolysis, hypotension, and likely sepsis requiring close hemodynamic monitoring and electrolyte monitoring in the setting of acuity of illness. NEURO - * CAM ICU: Unable to assess secondary to mental status. * AMS: * Likely metabolic encephalopathy 2/2 ARF w/ profound uremia, ARF, Hypotension, Hypothermia, likely sepsis. * CT head w/o acute finding. * Will monitor closely for improvements w/ correction of underlying conditions. * RIGHT sided weakness/LEFT sided gaze: * Concerning for possible embolic event. * Non contrast CT w/o acute finding. * Patient's creatinine >[address] w/ contrast. * Patient too unstable for MRI at this point. * Unfortunately, the patient is with an unknown downtime, precluding possibility of thrombolytic therapy. * Will attempt to medically maximize patient and improve mental status until further assessment can be performed. CARDIAC/VASCULAR - * Hypotension: * Multifactorial in the setting of profound hypovolemia, acute renal failure, hypothermia, and possible underlying sepsis. * Initially resuscitated appropriately with crystalloid. * Currently receiving IV fluids at the recommendation of nephrology. * Pressors as needed. * Rhabdomyolysis: * Patient found facedown for unknown amount of time. Concerning as the patient is with ecchymosis to the RIGHT sided chest as well as large black eschars to the anterior surfaces of the knees bilaterally. * Continue with IV fluid resuscitation. * Trend CPK. * Appreciate nephrology consultation. * EKG: NSR @ 77bpm. No ST/T-wave changes. QTc 453 ms. * Monitor on telemetry. RESPIRATORY - * No reported h/o pulmonary disease. * Patient saturating well on room air. * Coarse lung sounds noted on exam, however. * Patient likely not able to handle own secretions. * Regular chest PT. * NT suction as needed. * Supplemental O2 PRN. GI/NUTRITION - * Transaminitis: * In the setting of rhabdomyolysis and likely poor perfusion from hypotension/hypovolemia. * Will trend LFTs while attempting to correct underlying contributors. * Prophylaxis: Famotidine RENAL/LYTES - * ARF: * Likely 2/2 profound dehydration and rhabdo. * Continue w/ aggressive IVF resuscitation. * Hypernatremia: * Likely 2/2 profound dehydration: * Received aggressive crystalloid resuscitation. * Continue w/ BiCarb gtt per nephrology. * Monitor lytes and make changes to IVF as needed. - * Bah in place - Strict I&Os. ENDO - * No h/o DM or Thyroid Dz * BSGs per unit protocol. ISS --> gtt per unit policy. HEME - * Stable H&H ID - * Likely concomitant sepsis from ?? source. * Urine does appear to be possibility. * Lower extremity wounds with potential for source as well. * Received Rocephin in the ED. * Deescalate vs. Escalation of antibiotic coverage pending progression of clinical picture. * Lactate trending down. * PCT not elevated. * Blood/Urine Cultures pending. LINES/IV ACCESS - * PIVs x2 * RIGHT IJ CVL * LEFT Radial Art Line * Bah DVT PROPHYLAXIS - * Hold 2/2 signs of trauma (i.e. chest ecchymosis) * SCDs I have personally spent 62 minutes of critical care time in the direct management of this patient. This is a life/limb threatening event. This includes time spent evaluating patient, direct bedside care, chart review, placing orders, interpretation of diagnostic studies, discussion with consultants, patient, and family members, as well as other required patient management activities. This time is exclusive of all separately billable procedures, and teaching time and separate from and in addition to any other critical care service time. Thank you for allowing us to participate in the care of this patient. Please refer to my attending physician's documentation for any further recommendations. (2) Acute renal failure: (3) Pressure ulcer: (4) Hypothermia: (5) Acute alteration in mental status: (6) Hypernatremia: (7) Encephalopathy: (8) Elevated lactic acid level: (9) Rhabdomyolysis: (10) Transaminitis: (11) Hypothermia: (12) Acute kidney failure: (13) Mayank-neglect of right side: (14) Right sided weakness: History of Present Illness Attending Physician: Hi Wilson MD History of Present Illness Patient is an unfortunate 75-year-old male who was found facedown in his home earlier today. Patient is unable to provide historical information. Apparently, the patient was found at the foot of the bed facedown. There is no record of how long the patient would have been down. Patient was noted to be in acute renal failure as well as profoundly hypernatremic. He has eschars to the anterior surfaces of the knees bilaterally. He is also in rhabdomyolysis and was noted to have transaminitis as well. Patient was profoundly hypothermic as well. Patient was covered empirically with Rocephin. CT of the head, cervical spine, chest, and abdomen/pelvis are without acute findings otherwise. Patient was started on bicarb drip. Upon arrival in the ICU, the patient awakens, but is unable to speak and appears to have neglect of the RIGHT-sided extremities. He continues to stare to the left. He responds to stimuli, but is not appropriate otherwise. Allergies Allergy/AdvReac Type Severity Reaction Status Date / Time No Known Allergies Unverified 10/29/20 15:32 Home Medications Medication Instructions Recorded Confirmed Type Super Beta Prostate 1 tab PO DAILY 10/29/20 10/29/20 History lisinopril 20 mg PO DAILY 10/29/20 10/29/20 History simvastatin 20 mg PO DAILY 10/29/20 10/29/20 History Patient History Medical History High cholesterol Hypernatremia Hypertension Social History Smoking Status: Unknown if ever smoked Preferred Language: Faroese Communication Ability: Unable Current Living Situation: Spouse Review of Systems Review of Systems: Unobtainable due to cognitive status Physical Exam Physical Exam: VITAL SIGNS - Vital signs and nursing notes were reviewed. GENERAL - 75-year-old male appearing his stated age who is in no acute distress. Unable to communicate with staff. SKIN - Large black eschars noted to the anterior surface of the knees bilaterally. Bruising to the RIGHT sided chest wall. Eschar to the RIGHT sided forehead. HEAD - NC/AT. EYES - PERRL. Appears to have a left-sided gaze. EARS - No deformities of external structures noted on gross examination bilaterally. NOSE - Midline and without cyanosis. No epistaxis or purulent drainage noted. MOUTH/OROPHARYNX - Without perioral cyanosis. Buccal mucosa pink and dry. NECK - Supple to palpation. Favors rotation of the neck to the LEFT. LUNGS - Bruising noted to the RIGHT sided chest. Coarse breath sounds noted throughout but RIGHT greater than LEFT. Poor inspiratory effort noted. Without respiratory distress. CARDIAC - RRR with S1/S2. No murmur, rubs, or gallops appreciated. ABDOMEN - Abdominal contour obese without pulsations or visible masses. BS hypoactive. No tenderness, palpable masses, hepatosplenomegaly, or ascites noted. EXTREMITIES - No clubbing or peripheral cyanosis. No pretibial edema present. Large (8x4 cm) eschars noted to the anterior knees bilaterally. +2/5 radial and dorsalis pedis pulses palpated throughout. RIGHT sided neglect. Moves his LEFT arm, but without purpose. NEUROLOGIC - RIGHT upper and lower extremity weakness. LEFT sided gaze. Unable to further assess 2/2 mental status. Results & Data Results & Data ([facility]) Vital Signs (Past 12 Hours) Vital Signs Temp Pulse Resp BP Pulse Ox 10/29/20 18:45 84 25 H 98/45 L 100 10/29/20 18:30 75 24 92/47 L 98 10/29/20 18:28 79 20 105/54 L 98 10/29/20 18:15 75 23 83/46 L 100 10/29/20 18:00 73 23 109/61 100 10/29/20 17:45 67 24 90/47 L 100 10/29/20 17:30 67 22 87/49 L 100 10/29/20 17:16 71 25 H 90/57 L 100 10/29/20 17:00 23 120/58 L 98 10/29/20 16:46 24 102/56 L 100 10/29/20 16:30 68 22 98/52 L 100 10/29/20 16:15 66 21 109/54 L 100 10/29/20 16:00 67 21 111/61 100 10/29/20 15:46 67 22 99/65 L 90 10/29/20 15:42 70 22 147/83 H 91 10/29/20 15:21 106/60 10/29/20 14:42 100 10/29/20 14:40 96 H 31 H 138/116 H 100 10/29/20 14:26 33 C L 60 20 109/54 L 100 Coding Level of Care Code Critical Care 1st 30-74 mins Diagnoses Admitted to intensive care unit Z78.9 Acute renal failure N17.9 Acute renal failure type: unspecified Pressure ulcer L89.90 Pressure injury location: unspecified location Pressure injury stage: unspecified pressure injury stage Hypothermia T68.XXXA Encounter type: initial encounter Acute alteration in mental status R41.82 Hypernatremia E87.0 Encephalopathy G93.40 Elevated lactic acid level R79.89 Rhabdomyolysis M62.82 Transaminitis R74.01 Hypothermia T68.XXXA Acute kidney failure N17.9 Mayank-neglect of right side R41.4 Right sided weakness R53.1 Time Spent (min) 62 (1) Acute renal failure Acute renal failure type: unspecified Qualified Code(s): N17.9 - Acute kidney failure, unspecified (2) Pressure ulcer Pressure injury location: unspecified location Pressure injury stage: unspecified pressure injury stage Qualified Code(s): L89.90 - Pressure ulcer of unspecified site, unspecified stage (3) Hypothermia Encounter type: initial encounter Qualified Code(s): T68.XXXA - Hypothermia, initial encounter
--- NOTE | 2020-10-29 21:07 | Procedure Note ---
Procedure Note Date of Service October 29, 2020 Procedure: Arterial Line Placement Attending: Dr. Rodrigues APC: Sesar Desir PA-C Indication: Monitoring on Pressors Anesthesia: Lidocaine 1% Emergent consent implied in the setting of patient with active extremities requiring close hemodynamic monitoring with institution of vasopressors to ma intain appropriate MAPs. Patient does not have the mental capacity to consent/decline, and his is currently admitted and incapacitated as well. A time-out was completed verifying correct patient, procedure, site, positioning, and implant(s) or special equipment if applicable. Allens test was performed to ensure adequate perfusion. Patients RIGHT wrist was prepped and draped in the usual sterile fashion. Ultrasound guidance was used to aid needle placement. A 20g Arrow arterial line was introduced into the RIGHT Radial artery. Catheter was threaded, and the needle was removed with appropriate blood return. Good waveform was observed. The patient tolerated the procedure well. Confirmation of placement with ultrasound. Blood Loss: Minimal Complications: None Procedural Ultrasound Guidance: Procedure Date: 10/29/2020 Indication: Pressors, ABGs, Frequent lab draws Attending: Dr. Rodrigues APC: Sesar Desir PA-C Artery Identified: YES Line confirmed in Artery with ultrasound: YES Complications: NONE Patient tolerated procedure: WELL Coding CPT Codes Tubes, Drains, and Vasc Access - Tubes, Drains, and Vasc Access: [id number] Place Catheter In Artery ([id number]) [facility] Procedure Codes (Charges) Tubes, Drains, and Vasc Access Procedure 1: Tubes, Drains, and Vasc Access: [id number] Place Catheter In Artery
[2020-10-29] MEDS: NOREPINEPHRINE/D5W 8 MG/508 ML BAG IV SCH (21:21)
[2020-10-29] MEDS: ICU PROTOCOL FOR HYPERGLYCEMIA SCH (21:22)
[2020-10-29 21:55] LABS: Albumin Globulin Ratio 0.7 (0.9-2); Albumin Level 2.3 gm/dl (3.4-5.0); Bilirubin,Total 0.6 mg/dl (0.2-1); Calcium 10.3 mg/dl (8.5-10.1); Creatinine Clr Calc Pharmacy 16.2 ml/min; Est GFR (African American) 14.3; Est GFR (Non-African American) 12.3; Globulin 3.1 gm/dl (2.5-4.0); Magnesium 2.9 mg/dl (1.8-2.4); Phosphorus 2.3 mg/dl (2.5-4.9); Potassium 4.2 mmol/L (3.5-5.1); Total Protein 5.4 gm/dl (6.4-8.2); Troponin I 0.051 ng/ml (0-0.045)
[2020-10-29] MEDS: ICU ELECTROLYTE REPLACEMENT PROTOCOL SCH (21:58)
[2020-10-29] MEDS: HEPARIN SOD 5,000 UNIT/0.5 ML VIAL SQ SCH (21:59)
[2020-10-29 22:09] LABS: BUN Creatinine Ratio 43.5 (10-20)
[2020-10-29 23:00] LABS: Basophils # (auto) 0.01 K/uL (0-0.2); Basophils % (auto) 0.1 %; Hematocrit (blood only) 44.5 % (42-52); Hemoglobin 14.9 g/dL (14.0-18.0); Immature Granulocytes # (auto) 0.09 K/uL (0.00-0.02); Immature Granulocytes % (auto) 0.6 %; Lymphocytes # (auto) 1.85 K/uL (1.2-3.4); Lymphocytes % (auto) 12.6 %; Mean Corpuscular Hemoglobin 31.1 pg (25-34); Mean Corpuscular Hgb Conc 33.5 g/dL (32-36); Mean Corpuscular Volume 92.9 fL (80-100); Mean Platelet Volume 12.1 fL (7.4-10.4); Monocytes # (auto) 0.24 K/uL (0.11-0.59); Monocytes % (auto) 1.6 %; Neutrophils # (auto) 12.48 K/uL (1.4-6.5); Neutrophils % (auto) 85.1 %; Platelet Count 218 K/uL (130-400); RDW Coefficient of Variation 14.5 % (11.5-14.5); RDW Standard Deviation 49.2 fL (36.4-46.3); Red Blood Count 4.79 M/uL (4.7-6.1); White Blood Count 14.67 K/uL (4.8-10.8)
--- NOTE | 2020-10-30 00:19 | Procedure Note ---
Procedure Note Date of Service October 30, 2020 Procedure: Internal Jugular Central Line Placement Attending: Dr. Rodrigues APC: Sesar Desir PA-C Indication: Central Drug Administration, Poor Venous Access, Multiple Lab Draws Necessary, etc. Anesthesia: Lidocaine 1% Emergent consent implied in the setting of critically ill patient requiring multiple medications including vasopressors. Patient unable to consent secondary to current mental status. is currently admitted incapacitated as well. A time-out was completed verifying correct patient, procedure, site, positioning, and implants(s) or special equipment if applicable. Patients RIGHT Neck was cleansed and draped in the typical sterile fashion using Chloraprep. The Internal Jugular Vein and Carotid Artery were identified using ultrasound. The superficial tissue was anesthetized using 4.0 mL of 1% lidocaine without epinephrine under direct visualization with the ultrasound. After adequate anesthetization was achieved, the Internal Jugular vein was cannulated under direct ultrasound guidance using an introducer needle on a syringe. Good venous blood return was maintained prior to removal of syringe from introducer needle. Using Seldinger Technique, a guide wire was advanced through the introducer needle without resistance. The introducer needle was removed and ultrasound images were obtained of the guide wire within the Internal Jugular Vein and saved to the patients medical record. The dilator was advanced to the vessel without resistance. The dilator was exchanged for the triple lumen catheter which was advanced into the vessel without resistance. The guide wire was removed intact from the catheter without issue. Claves were placed on each catheter tip with confirmation of good blood flow from each lumen. Each port was easily flushed with sterile saline. The catheter was placed at 15 cm and sutured in place. BioPatch was applied to the catheter and a sterile Tegaderm dressing was applied over the catheter with careful attention to sterility. Patient tolerated procedure well. No immediate complications were met. Post procedure x-ray was completed, placement was appropriate and no pneumothorax was noted. Images obtained are saved for permanent record Procedural Ultrasound Guidance: Procedure Date: 10/29/2020 Indication: Pressors, Frequent lab draws, poor peripheral access Attending: Dr. Rodrigues APC: Sesar Desir PA-C Artery AND Vein visualized: YES Compressible Vein: YES Guidewire or Short Catheter seen in vein prior to dilation: YES Line confirmed in Vein with ultrasound: YES Images obtained are saved for permanent record. Coding CPT Codes Tubes, Drains, and Vasc Access - Tubes, Drains, and Vasc Access: [id number] Insertion Of Non-tunneled Catheter Age 5 Yrs> ([id number]) Tubes, Drains, and Vasc Access - Tubes, Drains, and Vasc Access: [id number] Ultrasound Guidance For Vascular ([id number]) [facility] [place] Procedure Codes (Charges) Tubes, Drains, and Vasc Access Procedure 2: Tubes, Drains, and Vasc Access: [id number] Insertion Of Non-tunneled Catheter Age 5 Yrs> Procedure 3: Tubes, Drains, and Vasc Access: [id number] Ultrasound Guidance For Vascular
[2020-10-30] MEDS: SODIUM BICARBONATE 8.4% 100 MEQ in DEXTROSE 5% 1,000 ML IV SCH (01:47)
[2020-10-30] MEDS ORDERED: ALBUT/IPRATROP 3MG/0.5MG NEB 3 ML VIAL INH PRN (03:38)
[2020-10-30] MEDS ORDERED: metroNIDAZOLE 500 MG/100 ML BAG IV SCH (04:00)
[2020-10-30] MEDS ORDERED: CEFEPIME 2,000 MG in SYRINGE 0 ML IV SCH (04:00)
[2020-10-30 05:20] LABS: iSTAT Art Bld Gas pCO2 Correct 25 mmHg (35-46); iSTAT Arterial Blood Gas HCO3 17 meg/L (19-24); iSTAT Arterial Blood Gas pCO2 24 mmHg (35-46); iSTAT Arterial Blood Gas pH 7.46 (7.35-7.45); iSTAT Arterial Blood Gas pO2 77 mmHg (80-95); iSTAT Arterial Blood Gas pO2 C 78; iSTAT Carbon Dioxide 18 mmol/L (24-31); iSTAT Hematocrit 43 % (42-52); iSTAT Hemoglobin 14.6 g/dl (14.0-18.0); iSTAT Potassium 4.1 mmol/L (3.3-5.0); iSTAT Site Art Line; iSTAT Sodium 154 mmol/L (135-144)
[2020-10-30] MEDS: HEPARIN SOD 5,000 UNIT/0.5 ML VIAL SQ SCH ×3 (05:20→20:39)
[2020-10-30 05:30] LABS: Basophils # (auto) 0.01 K/uL (0-0.2); Basophils % (auto) 0.1 %; Hemoglobin 14.9 g/dL (14.0-18.0); Immature Granulocytes # (auto) 0.04 K/uL (0.00-0.02); Immature Granulocytes % (auto) 0.3 %; Lymphocytes # (auto) 1.53 K/uL (1.2-3.4); Lymphocytes % (auto) 12.7 %; Mean Corpuscular Hgb Conc 33.1 g/dL (32-36); Mean Corpuscular Volume 93.6 fL (80-100); Mean Platelet Volume 12.4 fL (7.4-10.4); Monocytes # (auto) 0.53 K/uL (0.11-0.59); Monocytes % (auto) 4.4 %; Neutrophils # (auto) 9.98 K/uL (1.4-6.5); Neutrophils % (auto) 82.5 %; Platelet Count 211 K/uL (130-400); RDW Coefficient of Variation 14.7 % (11.5-14.5); RDW Standard Deviation 49.7 fL (36.4-46.3); Red Blood Count 4.81 M/uL (4.7-6.1); White Blood Count 12.09 K/uL (4.8-10.8)
[2020-10-30 05:46] LABS: INR 1.2 (0.9-1.1); Partial Thromboplastin Time 25.1 Seconds (21.0-31.0); Prothrombin Time 12.1 Seconds (9.0-12.0)
[2020-10-30 06:23] LABS: Albumin Level 2.2 gm/dl (3.4-5.0); BUN Creatinine Ratio 41.8 (10-20); Bilirubin Direct 0.2 mg/dl (0-0.2); Bilirubin,Total 0.5 mg/dl (0.2-1); Calcium 9.9 mg/dl (8.5-10.1); Creatinine Clr Calc Pharmacy 16.4 ml/min; Est GFR (African American) 14.5; Est GFR (Non-African American) 12.5; Magnesium 2.8 mg/dl (1.8-2.4); Phosphorus 2.2 mg/dl (2.5-4.9); Potassium 4.3 mmol/L (3.5-5.1); Total Protein 5.4 gm/dl (6.4-8.2); Troponin I 0.062 ng/ml (0-0.045)
[2020-10-30] MEDS: ICU ELECTROLYTE REPLACEMENT PROTOCOL SCH (06:33)
--- NOTE | 2020-10-30 06:58 | XRay Report ---
XR chest 1V portable CLINICAL HISTORY: Chest x-ray status post central line placement COMPARISON STUDY: No previous studies for comparison. FINDINGS: The cardiac and mediastinal contours are normal. There is a right internal jugular central venous catheter projected over the superior vena cava. There is no pneumothorax. There are minor left basilar atelectatic changes. There is no lobar consolidation. There is no failure.[ IMPRESSION: 1. Minor left basilar atelectasis 2. No evidence of pneumothorax status post placement of a right internal jugular central venous katerin ter ACT 112: Negative or not required by law. Electronically signed by: Eric Lora M.D. 10/30/2020 6:57 AM
[2020-10-30 07:03] LABS: Beta-Hydroxybutyrate 3.13 mg/dl (0.2-2.81)
[2020-10-30] MEDS ORDERED: PHARMACY GLYCEMIC MGMT CONSULT PRN (07:42)
[2020-10-30] MEDS ORDERED: cefTRIAXone SODIUM 2,000 MG in DEXTROSE 5% 50 ML IV SCH (08:00)
--- NOTE | 2020-10-30 08:13 | XRay Report ---
XR chest 1V portable CLINICAL HISTORY: f/u COMPARISON STUDY: Chest CT October 29, 2020. Chest radiograph October 30, 2020 at 12:10 AM. FINDINGS: Tip of right internal jugular central line projects over the SVC. There is no pneumothorax or pleural effusion. Left basilar opacity has increased. There may be mild right basilar opacity. Hia shaq hernia is noted. Cardiomediastinal silhouette is stable. There is no evidence for pulmonary edema . IMPRESSION: Increase in left basilar opacity which may reflect consolidation or atelectasis. ACT 112: Negative or not required by law. Electronically signed by: Moe Oden M.D. 10/30/2020 8:12 AM
--- NOTE | 2020-10-30 08:35 | Critical Care Progress Note ---
Date of Service October 30, 2020 Assessment & Plan (1) Admitted to intensive care unit: Reason Critically Ill: 75-year-old male with altered mental status likely secondary to hepatic encephalopathy in the setting of acuity of illness presenting with severe electrolyte derangements, rhabdomyolysis, hypotension, and likely sepsis requiring close hemodynamic monitoring and electrolyte monitoring in the setting of acuity of illness. ICU Day 2. Neuro - [facility] ICU: negative - AMS - likely metabolic encephalopathy 2/2 ARF w/ profound uremia, hypotension, hypothermia, likely sepsis. - right-sided weakness and left-sided gaze - concerning for thrombo-embolic event although CT head w/o contrast did not show acute finding - ARF precludes CT w/ contrast and patient too unstable for MRI - found down, for unknown period of time - no thrombolytics - continue to monitor for changes/improvements, pending ability to further assess via imaging Cardiac - Hypotension 2/2 profound hypovolemia (likely dehydration) and sepsis - initially resuscitated with crystalloid in ED - continue sodium bicarbonate 100mEq in sterile water @200cc/hr (changed from D5 due to hyperglycemia) - Nephro on board - appreciate recs - continue Levophed as needed to maintain MAP>65 - Elevated Troponin (.051 --> .062 today) - likely demand ischemia 2/2 hypotension/possible sepsis, also rhabdomyolysis may be contributing - trend to peak - continue to monitor on tele Respiratory - No reported h/o pulmonary disease. - Patient saturating well on room air. - Supplemental O2 PRN. GI - Mild transaminitis, improving (ALT 120 --> 111, AST 78 --> 70) - likely 2/2 rhabdomyolysis (see below) as well as poor perfusion from hypotension/possible sepsis - continue to trend LFTs - NPO for now, pending improvement in mental status RENAL/LYTES - acute renal failure - likely due to profound dehydration/hypovolemia as well as rhabdomyolysis - continue with IVF resuscitation as above - compensated metabolic acidosis (AB.46/24/77/17) likely due to DKA (see below), rhabdomyolysis and possible sepsis - continue IVF fluids - basal SQ insulin, may advance to gtt pending repeat labs (see below) - Rhabdomyolysis - patient found facedown for unknown amount of time - improving with IVFs (1600 --> 1200 today - Continue with IV fluids as mentioned above - Trend CPK. - Appreciate nephrology consultation. - hypernatremia - likely due to dehydration/hypovolemia, improving with IVF resuscitation - continue IVFs as above and trend closely to ensure appropriate rate of change - Replace lytes as needed. - continue moran - strict I/Os ENDO - DKA - glucose 300s today, A1c 6.0, beta-hydroxybutyrate elevated at 3.13 - basal SQ insulin for now - repeat BMP/Mg/Phos/beta-hydroxybutyrate at 1400 - if worsened despite SQ insulin, will advance to gtt - BSGs per unit protocol - no history of thyroid disease HEME - Stable H&H, monitor CBC ID - possible sepsis - presented with tachypnea/tachycardia/hypotension, leukocytosis 14.67, lactate 4.4 but procalcitonin not elevated - WBC trending down, lactate now <2, remains afebrile and hemodynamically stable on pressors/IVFs - Urine possible source - culture pending - Lower extremity wounds with potential for source as well - blood cx: 1/2 samples positive for GPC clusters - Received Rocephin in the ED, will continue with Rocephin to cover for urinary source and gave Vanco x1 for possible bacteremia (continue to follow cultures - suspect contamination) - de-escalate over next 24 hours pending change in overall medical status and cultures - COVID-19 neg x2, Influenza A/B, negative, RSV negative, HIV negative - Monitor fever curve LINES/IV ACCESS - - Right IJ CVL, left radial a-line, PIVx2, moran intact. DVT PROPHYLAXIS - - hold pharmacologic ppx secondary to trauma and mildly elevated coags, continue SCDs GI ppx: Famotidine 20mg IV daily Thank you for allowing us to be part of this patient's care. Please refer to Dr. Rodrigues's documentation for any further recommendations. (2) Acute renal failure: (3) Acute alteration in mental status: (4) Hypernatremia: (5) Encephalopathy: (6) Rhabdomyolysis: (7) Elevated lactic acid level: (8) Transaminitis: (9) Hyperglycemia: (10) Hypothermia: (11) Pressure ulcer: Admission and Anticipated Discharge Date Admission Date: October 29, 2020 Supervising Physician Co-Signing Physician Notes Dr Corrales was the resident-physician during care of patient. I separately evaluated patient for puga portions of the history and the exam. I was present during the critical portion of medical decision making, and I discussed the case with the resident. I generally agree with the findings and plan except for any additions/exceptions noted. Patient seen and examined at bedside. No acute distress, no adverse events overnight. Patient was on Levophed 0.14 at the time of examination. Patient was saturating 99% on 4 L nasal cannula. Went down to 2 L. Patient opens his eyes to his name but does follows simple commands. He activ jose moves his left upper extremity. Right upper extremity he does not move. He wiggles bilateral toes on asking. CT head was negative on presentation. Patient does have significant ecchymosis and abrasions appreciated on the ventral surface of the body especially on the abdomen. Patient's hyponatremia increased gradually improving. Goal sodium is 144 in the next 24 hours. Patient's BUN/creatinine is still high but he is making good amount of urine. There is no emergent indication for dialysis. For the rhabdomyolysis his CPK is trending down. Try to titrate off vasopressors to keep the map greater than 65 Blood culture 1 out of 4 bottles is positive for gram-positive cocci in clusters. Possibility of contaminant is high We will give 1 dose of vancomycin. As the urine was dirty he already got 1 dose of Rocephin. Patient's beta hydroxybutyric acid was on the higher side. We will start the patient on basal insulin and sliding scale There was no osmolar gap appreciated on the calculated ends measured serum osmolality. In/out: +6.4 L, urine output 875 mL --Prophylaxis VTE: Heparin GI: Pepcid Lines: Right IJ, right radial, Moran Diet: N.p.o. I have personally spent 37 minutes of critical care time in the direct management of this patient. This is a life/limb threatening event. This includes time spent evaluating patient, direct bedside care, chart review, placing orders, interpretation of diagnostic studies, discussion with consultants, patient, and/or family members regarding treatment decisions, as well as other required patient management activities. This time is exclusive of all separately billable procedures, and teaching time and separate from and in addition to any other critical care service time. Subjective No acute events overnight. Lines in place. Patient somnolent but opens eyes and moves all extremities (besides for right upper extremity) with verbal and tactile stimulation. Unable to provide history due to AMS. Review of Systems Review of Systems: Unobtainable due to altered mental status Physical Exam Physical Exam: General: NAD. Unable to communicate, does not follow commands HEENT: Atraumatic, normocephalic. Pulm: Decreased air entry bilaterally, left worse than right. -wheezes, -rales, -rhonchi. Symmetrical chest rise. No increase work of breathing. No respiratory distress. Chest: bruising on right side of chest Cardiac: RRR, -mrg. Radial pulses intact and symmetrical. Abdominal: soft, non-tender, non-distended, hypoactive BS x 4 Skin: No clubbing or peripheral cyanosis. Large (8x4 cm) eschars noted to the anterior knees bilaterally. Neuro: does not move right upper extremity but other extremities with strength intact. left sided gaze. unable to further assess due to impaired mental status Lymphatic: no cervical or axillary lymphadenopathy Results & Data Results & Data ([facility]) Vital Signs (Past 12 Hours) Vital Signs Temp Pulse Pulse Resp BP BP Pulse Ox 10/30/20 06:00 37.2 C 102 H 35 H 97 10/30/20 05:23 37.2 C 102 H 37 H 104/59 L 96 10/30/20 05:04 108 H 42 H 95 10/30/20 04:56 37.1 C 105 H 36 H 88/57 L 96 10/30/20 04:44 37.1 C 110 H 36 H 105/58 L 94 10/30/20 03:44 37.0 C 105 H 37 H 97/74 L 91 10/30/20 02:37 36.7 C 97 H 30 H 110/48 L 96 10/30/20 01:00 36.5 C 110 H 29 H 92 10/30/20 00:29 36.4 C L 100 H 27 H 101/63 95 10/29/20 23:45 36.4 C L 105 H 27 H 98 10/29/20 22:00 36.2 C L 89 29 H 100 10/29/20 21:01 36.2 C L 92 H 30 H 91/51 L 98 10/29/20 20:45 36.2 C L 94 H 17 67/42 L 98 10/29/20 20:40 36.2 C L 89 26 H 67/52 L 99 10/30/20 05:12 10/30/20 05:12 Resident Activity Tracking Resident Involvement: Resident Care Provided Care Provided: Adult Hospital Medicine (1) Acute renal failure Acute renal failure type: unspecified Qualified Code(s): N17.9 - Acute kidney failure, unspecified (2) Pressure ulcer Pressure injury location: unspecified location Pressure injury stage: unspecified pressure injury stage Qualified Code(s): L89.90 - Pressure ulcer of unspecified site, unspecified stage
[2020-10-30 08:37] LABS: Estimated Average Glucose 126 mg/dl
[2020-10-30] MEDS ORDERED: FAMOTIDINE 20 MG in SYRINGE 3 ML IV SCH (09:00)
[2020-10-30] MEDS: SODIUM BICARBONATE 8.4% 100 MEQ in WATER, STERILE 1,000 ML IV SCH ×3 (09:10→19:51)
--- NOTE | 2020-10-30 10:14 | Nephrology Progress Note ---
Date of Service October 30, 2020 Assessment & Plan (1) Acute kidney failure: 75 -year-old male with unknown past medical history, brought to ER after found lying down on floor at home. On admission found to be hypothermic and hypotensive. Has RAMON hypernatremia and metabolic acidosis. CPK pending Unclear exactly what started the whole clinical deterioration as no detailed information about medical history and current medication available. However acute kidney injury, electrolyte abnormality and hypotension points toward significant volume depletion. --D5W with 100 meq bicarb in each liter @ 200 ml/h --although BUN creatinine has been rising, volume status seems acceptable, no r espiratory distress, potassium normal, no acute indication for dialysis at this time. If urine output remained low and concern for respiratory distress and volume overload, IV diuretics can be used as needed. --monitor intake and output and continue hemodynamic support --no urgent need for dialysis at this time --check renal function electrolyte in the afternoon Will follow. Admission and Anticipated Discharge Date Admission Date: October 29, 2020 Avelina Vogel was seen and evaluated in ICU this morning. Remained minimally responsive, respond to painful stimuli. Blood pressure remained low on pressor. Urine output has been low however volume status acceptable, no respiratory distress. BUN creatinine continues to rise but potassium normal, acidosis improving. Sodium improved. Review of Systems Review of Systems: Unobtainable due to cognitive status Physical Exam Constitutional: + ill appearing and + altered mental status; no acute distress Respiratory: normal respiratory effort; no respiratory distress Ausc ultation: + diminished lung sounds Cardiovascular: RRR, no murmur, no edema Gastrointestinal (Abdomen): Inspection/Auscultation: normal bowel sounds Percussion/Palpation: abdomen soft; abdomen nontender, no guarding and abdomen not rigid Skin: no rashes Neurologic: + obtunded Results & Data ([facility]) Vital Signs (Past 12 Hours) Vital Signs Temp Pulse Pulse Resp BP Pulse Ox 10/30/20 09:15 37.5 C 94 H 30 H 95 10/30/20 09:00 37.4 C 102 H 34 H 97 10/30/20 08:46 37.5 C 98 H 33 H 97 10/30/20 08:41 37.5 C 102 H 27 H 96 10/30/20 08:30 37.4 C 99 H 32 H 96 10/30/20 08:15 37.4 C 99 H 33 H 96 10/30/20 08:00 37.4 C 98 H 32 H 105/65 97 10/30/20 07:46 37.4 C 100 H 32 H 97 10/30/20 07:30 37.4 C 98 H 32 H 97 10/30/20 07:15 37.3 C 101 H 32 H 97 10/30/20 07:00 37.3 C 101 H 32 H 96 10/30/20 06:46 37.2 C 107 H 38 H 96 10/30/20 06:30 37.2 C 106 H 38 H 96 10/30/20 06:15 37.2 C 105 H 38 H 96 10/30/20 06:00 37.2 C 102 H 35 H 97 10/30/20 05:23 37.2 C 102 H 37 H 104/59 L 96 10/30/20 05:04 108 H 42 H 95 10/30/20 04:56 37.1 C 105 H 36 H 88/57 L 96 10/30/20 04:44 37.1 C 110 H 36 H 105/58 L 94 10/30/20 03:44 37.0 C 105 H 37 H 97/74 L 91 10/30/20 02:37 36.7 C 97 H 30 H 110/48 L 96 10/30/20 01:00 36.5 C 110 H 29 H 92 10/30/20 00:29 36.4 C L 100 H 27 H 101/63 95 10/29/20 23:45 36.4 C L 105 H 27 H 98 PG Care Time/CCT Total # of Minutes Spent Total Time Spent with Patient: Total time spent is greater than 50% in coordination of care (as documented) at patient's floor/unit and/or counseling patient: Coding Level of Care Code 28123 Subseq Hosp Care Lvl 3 Diagnoses Acute kidney failure N17.9
[2020-10-30] MEDS ORDERED: VANCOMYCIN HCL 1,250 MG in SODIUM CHLORIDE 0.9% 500 ML IV STA (10:19)
[2020-10-30] MEDS ORDERED: VANCOMYCIN CONSULT ACTIVE PRN (10:19)
[2020-10-30] MEDS ORDERED: VANCOMYCIN HCL 1,750 MG in SODIUM CHLORIDE 0.9% 500 ML IV ONE (10:30)
[2020-10-30] MEDS ORDERED: INSULIN GLARGINE SOLOSTAR 100 UNITS/ML 3 ML PEN SC ONE (10:30)
[2020-10-30] MEDS ORDERED: INSULIN ASPART 100 UNITS/ML 3 ML PEN SC SCH (10:30)
[2020-10-30] MEDS: INSULIN ASPART 100 UNITS/ML 3 ML PEN SC SCH ×3 (12:09→19:50)
--- NOTE | 2020-10-30 12:27 | Billing Data ---
Date of Service October 30, 2020 Coding Level of Care Code Critical Care 1st 30-74 mins Time Spent (min) 37
[2020-10-30] MEDS: ICU PROTOCOL FOR HYPERGLYCEMIA SCH (12:37)
--- NOTE | 2020-10-30 13:08 | XRay Report ---
XR knee LT 1 or 2V routine CLINICAL HISTORY: Right knee pain status post trauma COMPARISON: None. DISCUSSION: No acute fractures or dislocations are visualized. There are mild degenerative changes. T here is a small joint effusion. IMPRESSION: No acute fractures or dislocations identified. ACT 112: Negative or not required by law. Electronically signed by: Eric Lora M.D. 10/30/2020 1:06 PM
--- NOTE | 2020-10-30 13:09 | XRay Report ---
RIGHT KNEE 2 VIEWS HISTORY: Right knee pain. fall, 2 view COMPARISON: None. FINDINGS: There is no fracture or dislocation. Mild tricompartmental osteoarthritis. Small to moderat e knee effusion. Possible soft tissue laceration anterior to the patellar ligament. No radiopaque for eign bodies. IMPRESSION: 1. No fractures within the right knee. 2. Small to moderate knee effusion. 3. Possible soft tissue laceration anteriorly. ACT 112: Negative or not required by law. Electronically signed by: Ziggy Brown M.D. 10/30/2020 1:08 PM
--- NOTE | 2020-10-30 13:55 | Pharmacy Report ---
Pharmacy Abx Dose Short Note - Date of Service October 30, 2020 - Assessment & Plan Assessment 75 year old M receiving vancomycin/ceftriaxone for treatment of empiric treatment/1/4 Blood cultures positive for GPC Day #1 of antimicrobial therapy. Patient admitted with altered mental status, rhabdomyolysis, hypotension, possible sepsis. Initially started on cefepime/flagyl, narrowed to ceftriaxone this morning. Vancomycin added for 1/4 blood cultures positive for GPC. Vancomycin will be dosed by level given acute renal failure/rhabdo Plan Vancomycin * Vancomycin 1750 mg x 1, random level in AM Pharmacy will continue to follow and will adjust dose/frequency as necessary. Thank you.
--- NOTE | 2020-10-30 14:02 | Pharmacy Report ---
Pharmacy Glycemic Short Note 2 - Date of Service October 30, 2020 - Glycemic Short BSG Results (Last 24 hours): 10/29/20 10/29/20 10/29/20 14:59 15:12 16:08 Glucose Cancelled 176 H POC Glucose POC Glucose (other) 192 H 10/29/20 10/30/20 10/30/20 21:09 05:12 06:27 Glucose 195 H 317 H* POC Glucose 301 H* POC Glucose (other) 10/30/20 10/30/20 09:21 12:07 Glucose POC Glucose POC Glucose (other) 281 H 246 H OUTPATIENT ANTIDIABETIC REGIMEN: * N/A * A1c 6.0% ASSESSMENT: * Patient presenting with multiple issues; rhadomyolysis, metabolic acidosis. * BSG 300 this morning, bicarb infusion switched to sterile water overnight, beta-hydroxybutyrate 3.13 this morning * Discussed starting insulin infusion this morning, per provider wants to utilize subq initially, may transition to insulin infusion this afternoon if needed * Patient is NPO but was receiving some medications in dextrose, including norepinephrine. Started with full weight based stress of 1 lantus and wieght based stress of 3 correction. PLAN FOR INPATIENT GLYCEMIC CONTROL: * Hold outpatient oral diabetes medications * Basal insulin * Lantus 15 units SQ x1, further dosing TBD * Bolus insulin * NovoLog per scale ACHS or Q6hrs while NPO * Goal Range: Low 140 mg/dL - High 180 mg/dL * Correction Factor: 20 mg/dL/unit * Nutritional / Prandial insulin per carb ratio of 1 unit per 10 grams CHO consumed PLAN FOR DISCHARGE: * tbd
[2020-10-30 14:27] LABS: Calcium 10.2 mg/dl (8.5-10.1); Creatinine Clr Calc Pharmacy 17.6 ml/min; Est GFR (African American) 15.8; Est GFR (Non-African American) 13.6; Magnesium 2.8 mg/dl (1.8-2.4); Potassium 3.8 mmol/L (3.5-5.1)
[2020-10-30 14:28] LABS: Beta-Hydroxybutyrate 1.6 mg/dl (0.2-2.81); Phosphorus 2.2 mg/dl (2.5-4.9)
--- NOTE | 2020-10-30 15:03 | Hospitalist Progress Note ---
Date of Service October 30, 2020 Assessment & Plan (1) Encephalopathy: Stroke vs. metabolic/infectious/toxic encephalopathy from elevation of the BUN. - CT head on 10/29 showed no acute issues. - No improvement today. Defer to ICU provider, but will consider MRI brain. (2) Acute kidney failure: Charbel elevated BUN/creatinine likely based on dehydration and rhabdomyolysis. - Continue bicarb gtt per nephrology. - Nephrology following - Appreciate recs (3) UTI (urinary tract infection): Possible septic source. - Continue ceftriaxone per ICU - Follow cultures (4) Hyperglycemia: No known DM, and A1c this admission was only 6.0%. Possibly a stress response. - Monitor blood sugars (5) DVT prophylaxis: Heparin 5,000 units SQ Q8h Admission and Anticipated Discharge Date Admission Date: October 29, 2020 Subjective No verbal response. Opens eyes to physical stimulus, but no notable response and no following commands. Review of Systems Review of Systems: Unobtainable due to cognitive status Physical Exam Constitutional: + acute distress and + disheveled Eyes: no conjunctival abnormality and + EOM not intact (Will not track to the right.) ENMT: external ear and nose normal, oropharynx normal Neck: trachea midline, no thyromegaly normal visual inspection Respiratory: + labored breathing; no respiratory distress Auscultation: + crackles and + rales Cardiovascular: Rate/Rhythm: regular rhythm and + tachycardic Heart Sounds: normal S1 and normal S2 Extremities: no edema Gastrointestinal (Abdomen): Inspection/Auscultation: abdomen normal to inspection; abdomen not distended Musculoskeletal: Head/Neck/Chest: + abnormal inspection of chest wall (Bru ising, skin damage); + evidence of head trauma Skin: + ulcer (On knees) Neurologic: moves all extremities; + not awake Psychiatric: Orientation: + not alert, + not oriented to person and + uncooperative Results & Data Results & Data ([facility]) Vital Signs (Past 12 Hours) Vital Signs Temp Pulse Pulse Resp BP Pulse Ox Pulse Ox 10/30/20 14:33 96 10/30/20 12:00 95 H 117/60 10/30/20 09:15 37.5 C 94 H 30 H 95 10/30/20 09:00 37.4 C 102 H 34 H 97 10/30/20 08:46 37.5 C 98 H 33 H 97 10/30/20 08:41 37.5 C 102 H 27 H 96 10/30/20 08:30 37.4 C 99 H 32 H 96 10/30/20 08:15 37.4 C 99 H 33 H 96 10/30/20 08:00 37.4 C 98 H 32 H 105/65 97 10/30/20 07:46 37.4 C 100 H 32 H 97 10/30/20 07:30 37.4 C 98 H 32 H 97 10/30/20 07:15 37.3 C 101 H 32 H 97 10/30/20 07:00 37.3 C 101 H 32 H 96 10/30/20 06:46 37.2 C 107 H 38 H 96 10/30/20 06:30 37.2 C 106 H 38 H 96 10/30/20 06:15 37.2 C 105 H 38 H 96 10/30/20 06:00 37.2 C 102 H 35 H 97 10/30/20 05:23 37.2 C 102 H 37 H 104/59 L 96 10/30/20 05:04 108 H 42 H 95 10/30/20 04:56 37.1 C 105 H 36 H 88/57 L 96 10/30/20 04:44 37.1 C 110 H 36 H 105/58 L 94 10/30/20 03:44 37.0 C 105 H 37 H 97/74 L 91 PG Care Time/CCT Total # of Minutes Spent Total Time Spent with Patient: Total time spent is greater than 50% in coordination of care (as documented) at patient's floor/unit and/or counseling patient: Coding Level of Care Code 54061 Subseq Hosp Care Lvl 3 Diagnoses Encephalopathy G93.40 Acute kidney failure N17.9 UTI (urinary tract infection) N39.0 Hyperglycemia R73.9 DVT prophylaxis Z29.9
[2020-10-30] MEDS: NOREPINEPHRINE/D5W 8 MG/508 ML BAG IV SCH (15:23)
[2020-10-30 16:01] LABS: BUN Creatinine Ratio 40.6 (10-20)
[2020-10-30] MEDS: cefTRIAXone SODIUM 2,000 MG in DEXTROSE 5% 50 ML IV SCH (16:24)
--- NOTE | 2020-10-30 16:50 | Orthopedic Consultation ---
Date of Consultation October 30, 2020 Assessment & Plan (1) Skin necrosis: Bilateral anterior knee skin necrosis likely secondary to being found down for a prolonged period of time. No obvious signs concerning for infection at this time. No exposed bone or tendon. Will require non-urgent superficial I+D bilateral knees once medically stabilized/optimized followed by consultation with plastic surgery for further treatment of skin defect. Thank you for the consultation. History of Present Illness Reason for Consultation: Bilateral anterior knee skin necrosis Attending Physician: Fernando Kidd MD History of Present Illness The patient is a 75 year old male with PMHx noted below, presented to [facility] sec ondary to being found down for unknown length of time. Admitted with AMS and sepsis. Due to the patient's altered mental status, HPI obtained from the chart. Allergies Allergy/AdvReac Type Severity Reaction Status Date / Time No Known Allergies Unverified 10/29/20 15:32 Home Medications Medication Instructions Recorded Confirmed Type Super Beta Prostate 1 tab PO DAILY 10/29/20 10/29/20 History lisinopril 20 mg PO DAILY 10/29/20 10/29/20 History simvastatin 20 mg PO DAILY 10/29/20 10/29/20 History Patient History Medical History High cholesterol Hypernatremia Hypertension Social History Smoking Status: Unknown if ever smoked Preferred Language: Nauruan Communication Ability: Unable Current Living Situation: Spouse Assistive Devices: None Review of Systems Review of Systems: Unobtainable due to cognitive status Constitutional: as per Subjective / HPI Physical Exam Physical Exam: Bilateral lower extremity PE: +2 DP pulses, compartments soft NT, mild effusion bilateral knees, anterior knee skin necrosis with well demarcated skin edges, no erythema, edema or drainage, no exposed bone or tendon. Constitutional: + ill appearing Results & Data ([facility]) Vital Signs (Past 12 Hours) Vital Signs Temp Pulse Pulse Resp BP Pulse Ox Pulse Ox 10/30/20 14:33 96 10/30/20 12:00 95 H 117/60 10/30/20 09:15 37.5 C 94 H 30 H 95 10/30/20 09:00 37.4 C 102 H 34 H 97 10/30/20 08:46 37.5 C 98 H 33 H 97 10/30/20 08:41 37.5 C 102 H 27 H 96 10/30/20 08:30 37.4 C 99 H 32 H 96 10/30/20 08:15 37.4 C 99 H 33 H 96 10/30/20 08:00 37.4 C 98 H 32 H 105/65 97 10/30/20 07:46 37.4 C 100 H 32 H 97 10/30/20 07:30 37.4 C 98 H 32 H 97 10/30/20 07:15 37.3 C 101 H 32 H 97 10/30/20 07:00 37.3 C 101 H 32 H 96 10/30/20 06:46 37.2 C 107 H 38 H 96 10/30/20 06:30 37.2 C 106 H 38 H 96 10/30/20 06:15 37.2 C 105 H 38 H 96 10/30/20 06:00 37.2 C 102 H 35 H 97 10/30/20 05:23 37.2 C 102 H 37 H 104/59 L 96 10/30/20 05:04 108 H 42 H 95 10/30/20 04:56 37.1 C 105 H 36 H 88/57 L 96 10/30/20 04:44 37.1 C 110 H 36 H 105/58 L 94 Laboratory Results H & H 10/29/20 10/29/20 10/30/20 Range/Units 14:59 21:09 05:12 Hgb 17.8 14.9 14.9 (14.0-18.0) g/dL Hct 52.1 H 44.5 45.0 (42-52) % Coagulation 10/29/20 10/29/20 10/30/20 Range/Units 14:59 16:08 05:12 INR Cancelled 1.2 H 1.2 H Diagnostic Findings RIGHT KNEE 2 VIEWS HISTORY: Right knee pain. fall, 2 view COMPARISON: None. FINDINGS: There is no fracture or dislocation. Mild tricompartmental osteoarthritis. Small to moderate knee effusion. Possible soft tissue laceration anterior to the patellar ligament. No radiopaque foreign bodies. IMPRESSION: 1. No fractures within the right knee. 2. Small to moderate knee effusion. 3. Possible soft tissue laceration anteriorly XR knee LT 1 or 2V routine CLINICAL HISTORY: Right knee pain status post trauma COMPARISON: None. DISCUSSION: No acute fractures or dislocations are visualized. There are mild degenerative changes. There is a small joint effusion. IMPRESSION: No acute fractures or dislocations identified.
[2020-10-30] MEDS: THIAMINE HCL 100 MG in SYRINGE 9 ML IV SCH (19:51)
[2020-10-31] MEDS: INSULIN ASPART 100 UNITS/ML 3 ML PEN SC SCH ×6 (00:39→22:24)
[2020-10-31] MEDS: SODIUM BICARBONATE 8.4% 100 MEQ in WATER, STERILE 1,000 ML IV SCH (00:40)
[2020-10-31 00:54] LABS: BUN Creatinine Ratio 39.8 (10-20); Calcium 9.8 mg/dl (8.5-10.1); Creatinine Clr Calc Pharmacy 19.3 ml/min; Est GFR (African American) 17.6; Est GFR (Non-African American) 15.2; Magnesium 2.5 mg/dl (1.8-2.4); Phosphorus 2.7 mg/dl (2.5-4.9); Potassium 3.6 mmol/L (3.5-5.1)
[2020-10-31] MEDS: NORMOSOL-R 1,000 ML IV SCH ×2 (01:44→06:37)
[2020-10-31 04:53] LABS: Basophils # (auto) 0.01 K/uL (0-0.2); Basophils % (auto) 0.1 %; Hematocrit (blood only) 40.6 % (42-52); Hemoglobin 13.5 g/dL (14.0-18.0); Immature Granulocytes # (auto) 0.06 K/uL (0.00-0.02); Immature Granulocytes % (auto) 0.4 %; Lymphocytes # (auto) 1.15 K/uL (1.2-3.4); Lymphocytes % (auto) 8.6 %; Mean Corpuscular Hgb Conc 33.3 g/dL (32-36); Mean Corpuscular Volume 93.1 fL (80-100); Mean Platelet Volume 12.3 fL (7.4-10.4); Monocytes # (auto) 0.71 K/uL (0.11-0.59); Monocytes % (auto) 5.3 %; Neutrophils # (auto) 11.44 K/uL (1.4-6.5); Neutrophils % (auto) 85.6 %; Nucleated RBC # (auto) 0.02 K/uL (0-0); Nucleated RBC % (auto) 0.2 %; Platelet Count 141 K/uL (130-400); RDW Coefficient of Variation 14.4 % (11.5-14.5); RDW Standard Deviation 48.7 fL (36.4-46.3); Red Blood Count 4.36 M/uL (4.7-6.1); White Blood Count 13.37 K/uL (4.8-10.8)
[2020-10-31 05:03] LABS: INR 1.3 (0.9-1.1); Partial Thromboplastin Ratio 1.6; Prothrombin Time 12.6 Seconds (9.0-12.0)
[2020-10-31 05:23] LABS: Albumin Level 1.8 gm/dl (3.4-5.0); BUN Creatinine Ratio 40.4 (10-20); Bilirubin Direct 0.2 mg/dl (0-0.2); Bilirubin,Total 0.6 mg/dl (0.2-1); Calcium 9.6 mg/dl (8.5-10.1); Creatinine Clr Calc Pharmacy 20.6 ml/min; Est GFR (African American) 19.1; Est GFR (Non-African American) 16.5; Magnesium 2.5 mg/dl (1.8-2.4); Phosphorus 2.5 mg/dl (2.5-4.9); Potassium 3.4 mmol/L (3.5-5.1); Total Protein 5.1 gm/dl (6.4-8.2); Troponin I 0.08 ng/ml (0-0.045)
[2020-10-31] MEDS: HEPARIN SOD 5,000 UNIT/0.5 ML VIAL SQ SCH ×3 (05:26→22:21)
[2020-10-31] MEDS ORDERED: MoRPHine SULFATE 2 MG/ML CARP IV PRN (07:25)
[2020-10-31] MEDS ORDERED: VANCOMYCIN HCL 750 MG in SODIUM CHLORIDE 0.9% 250 ML IV ONE ×2 (07:30→22:15)
[2020-10-31] MEDS: POTASSIUM CHLORIDE / WTR 20 MEQ/100 ML PLCT IV SCH ×2 (07:46→09:46)
[2020-10-31] MEDS: DEXTROSE 5% 1,000 ML IV SCH ×4 (07:46→23:22)
--- NOTE | 2020-10-31 08:06 | Critical Care Progress Note ---
Date of Service October 31, 2020 Assessment & Plan (1) Admitted to intensive care unit: Reason Critically Ill: 75-year-old male with altered mental status likely secondary to hepatic encephalopathy in the setting of acuity of illness presenting with severe electrolyte derangements, rhabdomyolysis, and sepsis requiring close hemodynamic monitoring and electrolyte monitoring in the setting of acuity of illness. ICU Day 3. Neuro - [facility] ICU: unable to assess as patient is unresponsive - AMS - likely metabolic encephalopathy 2/2 electrolyte abnormalities (hypercalcemia, hypernatremia), acute renal failure w/ profound uremia, sepsis - right-sided weakness and left-sided gaze - concerning for thrombo-embolic event although CT head w/o contrast did not show acute finding - acute renal failure precludes CT w/ contrast and patient too unstable for MRI - found down, for unknown period of time - no thrombolytics - continue to monitor for changes/improvements, pending ability to further assess via imaging - PRN Morphine 2mg IV Q6H for knee pain Cardiac - Hypotension 2/2 profound hypovolemia (likely dehydration) and sepsis - initially resuscitated with crystalloid in ED - changed IVFs to D5W @200cc/hr due to persistent hypernatremia 157 - Nephro on board - appreciate recs - continue Levophed as needed to maintain MAP>65, wean as tolerated - Elevated Troponin - peaked at 0.8, likely demand ischemia 2/2 hypotension/sepsis and rhabdomyolysis may be contributing - continue to monitor on tele Respiratory - CXR showing significant increase in right basilar opacity - likely represents aspiration pneumonitis (afebrile, stable WBC, already received broad-spectrum abx) - continue Vanco/Rocephin (see below) - Patient saturating well on 2L NC - Supplemental O2 PRN. GI - Mild transaminitis, improving - likely 2/2 rhabdomyolysis (see below) as well as poor perfusion from hypotension/sepsis - continue to trend LFTs - NPO for now, pending improvement in mental status - NG tube placed today RENAL/LYTES - Primary Hyperparathyroidism - corrected calcium 11.4, PTH 1098 - started Cinacalcet 30mg PO Q12H via NG tube - trend Calcium - Hypernatremia - likely due to dehydration/hypovolemia - continue D5W as above and trend closely to ensure appropriate rate of change (goal 147 in next 24 hours) - Acute Renal Failure, improving - likely due to hypovolemia/sepsis as well as rhabdomyolysis - continue with IVF resuscitation as above - Rhabdomyolysis, improving - patient found facedown for unknown amount of time - improving with IVFs, 1220 --> 1123 today - Continue with IV fluids as mentioned above - Trend CPK - Appreciate nephrology recs - Replace lytes as needed. - continue moran - strict I/Os ENDO - continue basal SQ insulin/SSI, BSGs per unit protocol - no history of thyroid disease HEME - Stable H&H, monitor CBC ID - sepsis with confirmed GPC bacteremia - presented with tachypnea/tachycardia/hypotension, leukocytosis, lactate 4.4 but procalcitonin not elevated - WBC trending down, lactate now <2, remains afebrile and hemodynamically stable on pressors/IVFs - Blood cx 2/2 positive for GPC clusters - speciation/sensitivities pending - R knee XR showing effusion, eschar on knee - possible septic arthritis source - Ortho consulted - appreciate recs (may need arthrocentesis) - CXR showing possible aspiration pneumonitis/PNA - Urine culture no growth - Received Rocephin in the ED, will continue with Vanco/Ceftriaxone - repeat blood cx tomorrow AM - Monitor fever curve LINES/IV ACCESS - Right IJ CVL, left radial a-line, PIVx2, NG tube, moran intact. DVT PROPHYLAXIS - Heparin 5000 units SQ Q8H, SCDs CODE STATUS: full code Thank you for allowing us to be part of this patient's care. Please refer to Dr. Rodrigues's documentation for any further recommendations. (2) Acute renal failure: (3) Acute alteration in mental status: (4) Hypernatremia: (5) Encephalopathy: (6) Rhabdomyolysis: (7) Elevated lactic acid level: (8) Transaminitis: (9) Hyperglycemia: (10) Hypothermia: (11) Pressure ulcer: Admission and Anticipated Discharge Date Admission Date: October 29, 2020 Supervising Physician Co-Signing Physician Notes Dr Corrales was the resident-physician during care of patient. I separately evaluated patient for puga portions of the history and the exam. I was present during the critical portion of medical decision making, and I discussed the case with the resident. I generally agree with the findings and plan except for any additions/exceptions noted. Patient seen and examined at bedside. No acute distress, no adverse events overnight. Patient has been off Levophed since late yesterday evening. Patient saturating 99% on 2 L nasal cannula. Patient opens his eyes to voice. He does not track. Follow simple commands like wiggling the legs. Moves his left upper extremity. Right upper extremity is still not mobile. Patient has eschars of bilateral knees, x-ray of the left knee shows mild effusion. Patient's blood culture is positive for gram-positive cocci in clusters. Rapid PCR for MRSA was negative. Continue with Rocephin. Patient did get vancomycin yesterday HIV was negative. Patient does have hypercalcemia with corrected calcium going around 11. PTH was in the thousand. This is likely primary hyperparathyroidism. We will start the patient on cinacalcet. Patient will eventually need parathyroidectomy. I do not think it is urgent. If need be we will give him calcitonin as well. Patient still hypernatremic. Goal sodium is 147 in the next 24 hours. He has started to make good amount of urine. CPK gradually trending down. AST/ALT also on the decline. His overall rhabdomyolysis is improving. Ortho is on board for possible tap of the left knee. I want to make sure this is not septic arthritis causing bacteremia. Chest x-ray from today does show some haziness in the right lower lobe, could be aspiration. Although it is a poor inspiratory effort. In/out: + 2.8 L, urine output 3115 --Prophylaxis VTE: Heparin GI: Pepcid Lines: Right IJ, right radial, Moran Diet: N.p.o. Potassium being replaced. We will gradually start feeding on him. Would like to avoid refeeding on him. Thiamine 100 mg twice daily has been started Chuck Miller, [phone], was called and updated regarding the current condition of the patient. I have personally spent 38 minutes of critical care time in the direct management of this patient. This is a life/limb threatening event. This includes time spent evaluating patient, direct bedside care, chart review, placing orders, interpretation of diagnostic studies, discussion with consultants, patient, and/or family members regarding treatment decisions, as well as other required patient management activities. This time is exclusive of all separately billable procedures, and teaching time and separate from and in addition to any other critical care service time. Subjective No acute events overnight. IVFs changed to Normosol due to persistent hypernatremia (157). Still with severely altered mental status and unable to communicate or follow commands. Review of Systems Review of Systems: Unobtainable due to altered mental status Physical Exam Physical Exam: General: NAD. Unable to communicate, does not follow commands. Nasal cannula in place. HEENT: Atraumatic, normocephalic. Pulm: Decreased air entry bilaterally, left worse than right. -wheezes, -rales, -rhonchi. Symmetrical chest rise. No increase work of breathing. No respiratory distress. Chest: bruising on right side of chest Cardiac: RRR, -mrg. Radial pulses intact and symmetrical. Abdominal: soft, non-tender, non-distended, hypoactive BS x 4 Skin: No clubbing or peripheral cyanosis. Large (8x4 cm) eschars noted to the anterior knees bilaterally. Neuro: does not move right upper extremity but other extremities with strength intact. Left sided gaze. unable to further assess due to impaired mental status Results & Data Results & Data ([facility]) Vital Signs (Past 12 Hours) Vital Signs Temp Pulse Resp BP Pulse Ox 10/31/20 06:22 37.5 C 94 H 33 H 115/95 93 10/31/20 05:21 37.4 C 99 H 30 H 105/57 L 93 10/31/20 04:21 37.4 C 93 H 28 H 120/62 91 10/31/20 03:21 37.3 C 91 H 25 H 100/52 L 95 10/31/20 02:21 37.1 C 92 H 28 H 102/54 L 93 10/31/20 01:51 37.0 C 93 H 29 H 109/52 L 94 10/31/20 00:22 36.8 C 95 H 30 H 95/56 L 94 10/30/20 23:21 36.7 C 95 H 29 H 101/72 91 10/30/20 22:25 36.9 C 97 H 30 H 102/45 L 91 10/30/20 21:52 36.8 C 94 H 28 H 92 10/30/20 21:51 36.8 C 94 H 29 H 117/60 90 10/30/20 21:00 36.9 C 94 H 26 H 93 10/30/20 20:52 36.9 C 94 H 27 H 93 10/30/20 20:44 36.8 C 90 27 H 103/58 L 91 10/31/20 04:34 10/31/20 04:34 Resident Activity Tracking Resident Involvement: Resident Care Provided Care Provided: Adult Hospital Medicine (1) Acute renal failure Acute renal failure type: unspecified Qualified Code(s): N17.9 - Acute kidney failure, unspecified (2) Pressure ulcer Pressure injury location: unspecified location Pressure injury stage: unspecified pressure injury stage Qualified Code(s): L89.90 - Pressure ulcer of unspecified site, unspecified stage
--- NOTE | 2020-10-31 08:14 | XRay Report ---
XR chest 1V portable CLINICAL HISTORY: Hypoxia. COMPARISON STUDY: Chest CT October 29, 2020. Chest radiograph October 30, 2020 at 6:40 AM. FINDINGS: Tip of feeding tube is coiled within the stomach. Tip projects over the gastric cardia. Rig ht internal jugular central line is in place. There is no pneumothorax. Bibasilar airspace opacities have significantly increased. There is mild interstitial thickening. Cardiomediastinal silhouette is stable. IMPRESSION: 1. Significant increase in bibasilar opacity which favors pneumonia or aspiration pneumonitis. 2. Tip of feeding tube coiled within the stomach. Tip projects over the gastric cardia. ACT 112: Negative or not required by law. Electronically signed by: Moe Oden M.D. 10/31/2020 8:13 AM
[2020-10-31] MEDS ORDERED: ETHYL CHLORIDE AER SPR 100 ML CAN EXT ONE (08:41)
[2020-10-31] MEDS ORDERED: INSULIN GLARGINE SOLOSTAR 100 UNITS/ML 3 ML PEN SC ONE ×2 (08:45→20:00)
[2020-10-31] MEDS: FAMOTIDINE 20 MG in SYRINGE 3 ML IV SCH (09:45)
[2020-10-31] MEDS: CINACALCET HCL 30 MG TAB PO SCH ×2 (09:46→22:22)
[2020-10-31] MEDS: THIAMINE HCL 100 MG in SYRINGE 9 ML IV SCH ×2 (09:46→23:23)
--- NOTE | 2020-10-31 10:19 | Nephrology Progress Note ---
Date of Service October 31, 2020 Assessment & Plan (1) Acute kidney failure: 75 -year-old male with unknown past medical history, brought to ER after found lying down on floor at home. On admission found to be hypothermic and hypotensive. Has RAMON hypernatremia and metabolic acidosis. No history of CKD, baseline creatinine 1.0-1.1. Unclear exactly what started the whole clinical deterioration as no detailed information about medical history and current medication available. However ac [place] kidney injury, electrolyte abnormality and hypotension points toward significant volume depletion. Renal function started to improve, decent urine output, acidosis resolved. Potassium normal. Remained volume contracted. Chronic hypercalcemia with volume contraction and primary hyperparathyroidism, elevated PTH at least since 2017 --continue D5W. --continue on Sensipar. Eventually will need to to be evaluated for parathyroidectomy as an outpatient. --monitor serum sodium q.12 hours Will follow. Admission and Anticipated Discharge Date Admission Date: October 29, 2020 Avelina Vogel was seen and evaluated in ICU this morning. Awake, alert but no improvem ent in mental status. Blood pressure improved and has been stable. Urine output improved. Renal function has been improving, still remain volume depleted, sodium again increased to 157. Potassium normal, acidosis resolved. Calcium elevated. Review of Systems Review of Systems: Unobtainable due to cognitive status Physical Exam Constitutional: + ill appearing; no acute distress Respiratory: normal respiratory effort, lungs clear to auscultation Cardiovascular: RRR, no murmur, no edema Gastrointestinal (Abdomen): Inspection/Auscultation: normal bowel sounds Percussion/Palpation: abdomen soft; abdomen nontender Skin: no rashes Neurologic: + confused Speech / Cognition: + abnormal cognition Results & Data ([facility]) Vital Signs (Past 12 Hours) Vital Signs Temp Pulse Resp BP Pulse Ox 10/31/20 06:22 37.5 C 94 H 33 H 115/95 93 10/31/20 05:21 37.4 C 99 H 30 H 105/57 L 93 10/31/20 04:21 37.4 C 93 H 28 H 120/62 91 10/31/20 03:21 37.3 C 91 H 25 H 100/52 L 95 10/31/20 02:21 37.1 C 92 H 28 H 102/54 L 93 10/31/20 01:51 37.0 C 93 H 29 H 109/52 L 94 03/24/21 00:22 36.8 C 95 H 30 H 95/56 L 94 10/30/20 23:21 36.7 C 95 H 29 H 101/72 91 10/30/20 22:25 36.9 C 97 H 30 H 102/45 L 91 PG Care Time/CCT Total # of Minutes Spent Total Time Spent with Patient: Total time spent is greater than 50% in coordination of care (as documented) at patient's floor/unit and/or counseling patient: Coding Level of Care Code 15831 Subseq Hosp Care Lvl 3 Diagnoses Acute kidney failure N17.9
--- NOTE | 2020-10-31 11:06 | Pharmacy Report ---
Pharmacy Abx Dose Short Note - Date of Service October 31, 2020 - Assessment & Plan Assessment 75 year old M receiving vancomycin/ceftriaxone for treatment of gram positive bacteremia. Currently growing in 3/3 cultures, suspect coag negative staph as staph aureus pcr is negative. Will continue both vancomycin/ceftriaxone until cultures result with sensitivities. Plan Vancomycin * Random level this AM 18.4, redosed with 750 mg x 1 * SCr improving 4.33 -> 3.46, with increased urine output, will continue to dose by levels * Will get additional random level this evening ~2100 to assist with further dosing Pharmacy will continue to follow and will adjust dose/frequency as necessary. Thank you.
[2020-10-31] MEDS: NOREPINEPHRINE/D5W 8 MG/508 ML BAG IV SCH (11:23)
--- NOTE | 2020-10-31 11:35 | Billing Data ---
Date of Service October 31, 2020 Coding Level of Care Code Critical Care 1st 30-74 mins Time Spent (min) 38
--- NOTE | 2020-10-31 13:23 | CT Scan Report ---
CT head/brain wo con CLINICAL HISTORY: Strokelike symptoms COMPARISON STUDY: October 29, 2020 TECHNIQUE: Axial CT of the brain is performed from the vertex to the skull base. IV contrast was not administered for this examination. A dose lowering technique was utilized adhering to the principles of ALARA. CT DOSE: 687.98 mGy.cm FINDINGS: No intra or extra-axial mass lesions are visualized. There is a subacute left basal ganglia infarct i nvolving the lentiform nucleus. There is also equivocal involvement of the left lateral thalamus, med ial temporal lobe, and posterior limb of the left internal capsule. There is an old right basal gangl ia infarct. There is no midline shift. There is no hemorrhage. There is no evidence of calvarial frac ture. There are patchy white matter hypodensities likely on a small vessel basis. There is no evidence of pathologic ventricular dilatation. There is no evidence of acute sinusitis IMPRESSION: 1. Subacute left basal ganglia infarct involving the lentiform nucleus. There is also equivocal invol vement of the left lateral thalamus, medial temporal lobe, and posterior limb of the left internal ca psule. An MRI might be considered in follow-up for further evaluation. 2. No evidence of acute hemorrhage ACT 112: Negative or not required by law. Electronically signed by: Eric Lora M.D. 10/31/2020 1:22 PM
--- NOTE | 2020-10-31 14:10 | Orthopedic Progress Note ---
Date of Service October 31, 2020 Assessment & Plan (1) Skin necrosis: Bilateral knee skin necrosis, effusions bilateral knees, right larger than the left. Right knee was aspirated for about 37cc of bloody, mildly cloudy fluid. No gross purulence. Will send for crystals, gram stain/culture, cell count. Will await labs. If comes back infectious may require arthroscopic I&D of his right knee. Admission and Anticipated Discharge Date Admission Date: October 29, 2020 Subjective Patient awake on arrival, somewhat alert. Had CT scan this afternoon showing that patient has suffered a stroke. Does not respond to questions. Patient's blood cultures growing staph, serology negative for MRSA. We were asked to see patient for his bilateral knees, r/o source of bacteremia. Review of Systems Review of Systems: Unobtainable due to cognitive status Physical Exam Physical Exam: Right knee-Eschar anterior aspect of knee, unchanged from yesterday. Mild erythema superior aspect. Mild warmth. Moderate effusion. Left knee-Eschar unchanged, mild effusion. No erythema. Mild warmth on palpation. Right knee was anesthetized with ethyl chloride. Skin was cleansed with 3 alcohol swabs and 3 Betadine swabs in usual fashion. Using a superolateral approach I inserted an 18 g needle into the joint capsule. 37cc of bloody and cloudy fluid was aspirated from his knee. Needle was removed and pressure applied to wound. A sterile bandage was applied to his knee. Procedure was tolerated well. Results & Data ([facility]) Vital Signs (Past 12 Hours) Vital Signs Temp Pulse Resp BP Pulse Ox 10/31/20 12:00 89 102/54 L 10/31/20 08:00 87 136/64 10/31/20 06:22 37.5 C 94 H 33 H 115/95 93 10/31/20 05:21 37.4 C 99 H 30 H 105/57 L 93 10/31/20 04:21 37.4 C 93 H 28 H 120/62 91 10/31/20 03:21 37.3 C 91 H 25 H 100/52 L 95 10/31/20 02:21 37.1 C 92 H 28 H 102/54 L 93
[2020-10-31 14:26] LABS: BUN Creatinine Ratio 35.2 (10-20); Calcium 9.4 mg/dl (8.5-10.1); Creatinine Clr Calc Pharmacy 21.2 ml/min; Est GFR (African American) 19.8; Est GFR (Non-African American) 17.1; Magnesium 2.5 mg/dl (1.8-2.4); Potassium 3.7 mmol/L (3.5-5.1)
[2020-10-31 14:27] LABS: Phosphorus 2.1 mg/dl (2.5-4.9)
--- NOTE | 2020-10-31 14:27 | Hospitalist Progress Note ---
Date of Service October 31, 2020 Assessment & Plan (1) Bacteremia: Staph growing in 3/4 bottles of blood from 10/29. - Possible skin source with both knees as damaged as they are. - ICU team added vancomycin to ceftriaxone. - Follow species and sensitivity (2) Encephalopathy: Stroke vs. metabolic/infectious/toxic encephalopathy from elevation of the BUN. - CT head on 10/29 showed no acute issues. - Repeat CT head on 10/31 now with stroke. ICU consulting neurology. - No improvement today. (3) Acute kidney failure: [place] elevated BUN/creatinine likely based on dehydration and rhabdomyolysis. - Continue bicarb gtt per nephrology. - Nephrology following - Appreciate recs. Improving BUN, though Cr. stable presently. (4) UTI (urinary tract infection): Possible septic source. - Continue ceftriaxone per ICU - Follow cultures (5) Hyperglycemia: No known DM, and A1c this admission was only 6.0%. Possibly a stress re sponse. - Monitor blood sugars (6) DVT prophylaxis: Heparin 5,000 units SQ Q8h Admission and Anticipated Discharge Date Admission Date: October 29, 2020 Subjective Unresponsive. Review of Systems Review of Systems: Unobtainable due to cognitive status and Unobtainable due to reduced consciousness Physical Exam Constitutional: + acute distress and + disheveled Eyes: no conjunctival abnormality and + EOM not intact (Will not track to the right.) ENMT: external ear and nose normal, oropharynx normal Neck: trachea midline, no thyromegaly normal visual inspection Respiratory: + labored breathing; no respiratory distress Auscultation: + crackles and + rales Cardiovascular: Rate/Rhythm: regular rhythm and + tachycardic Heart Sounds: normal S1 and normal S2 Extremities: no edema Gastrointestinal (Abdomen): Inspection/Auscultation: abdomen normal to inspection; abdomen not distended Musculoskeletal: Head/Neck/Chest: + abnormal inspection of chest wall (Bruising, skin damage); + evidence of head trauma Skin: + ulcer (On knees) Neurologic: moves all extremities; + not awake Psychiatric: Orientation: + not alert, + not oriented to person and + uncooperative Results & Data Results & Data ([facility]) Vital Signs (Past 12 Hours) Vital Signs Temp Pulse Resp BP Pulse Ox 10/31/20 12:00 89 102/54 L 10/31/20 08:00 87 136/64 10/31/20 06:22 37.5 C 94 H 33 H 115/95 93 10/31/20 05:21 37.4 C 99 H 30 H 105/57 L 93 10/31/20 04:21 37.4 C 93 H 28 H 120/62 91 10/31/20 03:21 37.3 C 91 H 25 H 100/52 L 95 PG Care Time/CCT Total # of Minutes Spent Total Time Spent with Patient: Total time spent is greater than 50% in coordination of care (as documented) at patient's floor/unit and/or counseling patient: Coding Level of Care Code 03319 Subseq Hosp Care Lvl 3 Diagnoses Bacteremia R78.81 Encephalopathy G93.40 Acute kidney failure N17.9 UTI (urinary tract infection) N39.0 Hyperglycemia R73.9 DVT prophylaxis Z29.9
--- NOTE | 2020-10-31 14:41 | Neurology Consultation ---
Date of Consultation October 31, 2020 Assessment & Plan (1) Acute alteration in mental status: (2) Acute renal failure: (3) Hypernatremia: (4) Transaminitis: (5) Stroke: Jaspreet Miller is a 75 yo man w/ unknown PMH (HTN, HLD, BPH from medication list) who p/t [facility] on 10/29/20 after being found down at home with his (who was COVID positive). Neurology consulted for AMS in setting of new strokes. Symptom localization: left hemispheric predominantly given right sided weakness/neglect, AMS multifactorial Stroke mechanism: cardioembolic vs septic emboli from endocarditis vs flow failure, less likely CO poisoning Stroke WorkUp: - CT head: Repeat CT head on 10/31 shows more noticeable bilateral basal ganglia hypodensities (mainly globus pallidus) and left anterior temporal lobe extending to the left thalamus. - MRA head/neck w/o: pending (vs MRA head w/o and carotid dopplers) - MRI brain: pending - TTE: pending, consider GEOFF to r/o endocarditis given staph bacteremia - Telemetry: NSR - A1c: 6.0 - FLP: pending - UDS: negative - Troponin, TSH: negative, WNL Stroke Management: - Acute treatment: n/a, outside of time window - Continuous cardiac monitoring, will consider Holter monitor as outpatient if telemetry here unrevealing - Vitals, Neurochecks, NIHSS per unit routine - BP parameters: SBP CAP 180, continue anti-hypertensives if needed (though he has been hypotensive) - Obtain MRI brain to evaluate stroke burden, MRA head w/o to look at vessels, carotid dopplers - Complete ischemic stroke workup with TTE without bubble, fasting lipid panel - Consult speech, PT, OT for supportive management Secondary Stroke Prevention: - Antiplatelet: continue ASA 81mg po daily - Anticoagulation: Not indicated at this time - Statin: start atorvastatin 40mg daily when safe to start from liver/overall infection standpoint HTN: - BP parameters, as above FEN/GI: - Diet: NPO until cleared by Speech evaluation - Monitor lytes and replete PRN - Management of ARF per renal/primary team Glucose Control: - Sliding scale insulin and accuchecks per primary team to avoid hyperglycemia # AMS: likely multifactorial in the setting of ARF (BUN>40 still with multiple electrolyte abnormalities), bacteremia, possible endocarditis, transaminitis, and multiple new strokes Thank you for this interesting consult. Plan of care was discussed with primary team. Please call with any questions. History of Present Illness Attending Physician: Fernando Kidd MD History of Present Illness Jaspreet Miller is a 75 yo man w/ unknown PMH (HTN, HLD, BPH from medication list) who p/t [facility] on 10/29/20 after being found down at home with his (who was COVID positive). Neurology consulted for AMS in setting of new strokes. Minimal information available about how patient and his came to be found down. On admission, labs notable for WBC 14.67 hemoglobin 14.9 with MCV 92.9, platelets 218, INR 1.2,, ABG 7.4 01/31/77, sodium 157, potassium 4.2, chloride 126, CO2 70, gap 13, BUN 191, creatinine 4.39, GFR 12.3, glucose 195, calcium 10.3 with ionized calcium 1.36, phosphorus low at 2.3, magnesium high at 2.9, AST elevated 78, ALT elevated 120 with normal alkaline phosphatase, ammonia 21.2, CK elevated to 1602, troponin elevated to 0.051, albumin low 2.3, TSH within normal, pro calcitonin 0.25, PTH elevated to 1097.5, UA showed hematuria and pyuria but no clear infection, UDS negative, Covid negative, influenza negative, RSV negative, MRSA negative, HIV negative, urine culture no growth, blood culture growing staph (species pending). Imaging independently reviewed. Initial CT head on 322 shows no hemorrhage, faint hypodensity in the left basal ganglia and small hypodensity in the right basal ganglia extending to the right caudate head. Repeat CT head on 324 shows more noticeable bilateral basal ganglia hypodensities (mainly globus pallidus) and left anterior temporal lobe extending to the left thalamus. On examination, he opened eyes to voice and would mumble but could not provide any significant history. Does have RUE>RLE weakness noted on examination. Allergies Allergy/AdvReac Type Severity Reaction Status Date / Time No Known Allergies Unverified 10/29/20 15:32 Home Medications Medication Instructions Recorded Confirmed Type Super Beta Prostate 1 tab PO DAILY 10/29/20 10/29/20 History lisinopril 20 mg PO DAILY 10/29/20 10/29/20 History simvastatin 20 mg PO DAILY 10/29/20 10/29/20 History Patient History Medical History High cholesterol Hypernatremia Hypertension Social History Smoking Status: Unknown if ever smoked Preferred Language: Korean Communication Ability: Unable Current Living Situation: Spouse Assistive Devices: None Review of Systems Review of Systems: Unobtainable due to cognitive status Exam (Neuro) Physical Exam: General Exam: GEN: NAD, lying in bed HEENT: No conjunctival injection, no rhinorrhea. CV: RRR, trace peripheral edema PULM: Nonlabored respirations on 3L NC Neuro Exam: MS: Drowsy, arousable to voice and noxious stimuli. Unable to answer orientation questions, grunts but does not have much formed language. Unable to assess speech or memory. No true neglect of the right side, just a preference to pay attention to the left side. CN: +blink to threat in left visual field, unclear in right visual field. Unable to visualize fundi on fundoscopic exam. PERRLA OU. Eyes midline with no gaze preference, able to move eyes when head turned side to side. Facial muscles full and symmetric. Hearing intact to conversation. MOTOR: Normal bulk, flaccid tone in LUE. LUE antigravity with minimal drift, RUE immediate drift to bed. BLEs antigravity with minimal drift to bed. REFLEXES: 1+ at biceps, absent Achilles bilaterally. Flexor plantar responses bilaterally. SENSORY: Withdraws/grimaces to noxious stimuli throughout. COORDINATION: unable to assess 2/2 mental status and weakness GAIT: deferred given physical status Results & Data ([facility]) Vital Signs (Past 12 Hours) Vital Signs Temp Pulse Resp BP Pulse Ox 10/31/20 12:00 89 102/54 L 10/31/20 08:00 87 136/64 10/31/20 06:22 37.5 C 94 H 33 H 115/95 93 10/31/20 05:21 37.4 C 99 H 30 H 105/57 L 93 10/31/20 04:21 37.4 C 93 H 28 H 120/62 91 10/31/20 03:21 37.3 C 91 H 25 H 100/52 L 95 10/31/20 02:21 37.1 C 92 H 28 H 102/54 L 93 PG Care Time/CCT Total # of Minutes Spent Total Time Spent with Patient: Total time spent is greater than 50% in coordination of care (as documented) at patient's floor/unit and/or counseling patient: 60 Coding Level of Care Code 38762 Initial Inpt Care Lvl 3 Diagnoses Acute alteration in mental status R41.82 Acute renal failure N17.9 Acute renal failure type: unspecified Hypernatremia E87.0 Transaminitis R74.01 Stroke I63.9 (1) Acute renal failure Acute renal failure type: unspecified Qualified Code(s): N17.9 - Acute kidney failure, unspecified
[2020-10-31 16:15] LABS: Appearance Synovial Fluid BLOODY; Color Synovial Fluid RED; Mononuclear WBC Synovial 5.3 %; Polynuclear WBC Synovial 94.7 %; RBC Synovial Fluid (A) 76000 /uL; Source Synovial Fluid KNEE; WBC Synovial Fluid (A) 5202 /ul (0-200)
[2020-10-31] MEDS: cefTRIAXone SODIUM 2,000 MG in DEXTROSE 5% 50 ML IV SCH (16:33)
[2020-10-31] MEDS ORDERED: ACETAMINOPHEN 1,000 MG/100 ML VIAL IV PRN (20:59)
[2020-11-01 01:10] LABS: BUN Creatinine Ratio 35.4 (10-20); Calcium 9.3 mg/dl (8.5-10.1); Creatinine Clr Calc Pharmacy 24.1 ml/min; Est GFR (African American) 23.1; Magnesium 2.2 mg/dl (1.8-2.4); Phosphorus 1.9 mg/dl (2.5-4.9); Potassium 3.5 mmol/L (3.5-5.1)
[2020-11-01] MEDS: INSULIN ASPART 100 UNITS/ML 3 ML PEN SC SCH ×6 (01:23→20:58)
[2020-11-01] MEDS: DEXTROSE 5% 1,000 ML IV SCH ×2 (03:38→07:56)
[2020-11-01 05:32] LABS: Basophils # (auto) 0.02 K/uL (0-0.2); Basophils % (auto) 0.1 %; Eosinophils # (auto) 0.01 K/uL (0-0.5); Eosinophils % (auto) 0.1 %; Hematocrit (blood only) 39.2 % (42-52); Immature Granulocytes # (auto) 0.03 K/uL (0.00-0.02); Immature Granulocytes % (auto) 0.2 %; Lymphocytes # (auto) 1.24 K/uL (1.2-3.4); Lymphocytes % (auto) 8.2 %; Mean Corpuscular Hemoglobin 31.3 pg (25-34); Mean Corpuscular Hgb Conc 33.2 g/dL (32-36); Mean Corpuscular Volume 94.2 fL (80-100); Mean Platelet Volume 12.4 fL (7.4-10.4); Neutrophils # (auto) 13.16 K/uL (1.4-6.5); Neutrophils % (auto) 87.4 %; Nucleated RBC # (auto) 0.03 K/uL (0-0); Nucleated RBC % (auto) 0.2 %; Platelet Count 172 K/uL (130-400); RDW Coefficient of Variation 14.4 % (11.5-14.5); RDW Standard Deviation 49.4 fL (36.4-46.3); Red Blood Count 4.16 M/uL (4.7-6.1); White Blood Count 15.06 K/uL (4.8-10.8)
[2020-11-01 05:44] LABS: Albumin Level 1.7 gm/dl (3.4-5.0); BUN Creatinine Ratio 31.9 (10-20); Bilirubin Direct 0.2 mg/dl (0-0.2); Calcium 9.2 mg/dl (8.5-10.1); Creatinine Clr Calc Pharmacy 25.9 ml/min; Est GFR (African American) 25.2; Est GFR (Non-African American) 21.7; Magnesium 2.1 mg/dl (1.8-2.4); Potassium 3.5 mmol/L (3.5-5.1)
[2020-11-01 05:47] LABS: INR 1.2 (0.9-1.1); Partial Thromboplastin Ratio 1.2; Partial Thromboplastin Time 32.8 Seconds (21.0-31.0); Prothrombin Time 12.2 Seconds (9.0-12.0)
[2020-11-01 05:58] LABS: Bilirubin,Total 0.5 mg/dl (0.2-1); Total Protein 5.4 gm/dl (6.4-8.2)
[2020-11-01] MEDS: HEPARIN SOD 5,000 UNIT/0.5 ML VIAL SQ SCH ×3 (06:39→21:00)
[2020-11-01] MEDS ORDERED: POTASSIUM PHOS 3 MMOL/1 ML INFUSION IV STA (07:28)
--- NOTE | 2020-11-01 07:46 | XRay Report ---
XR chest 1V portable HISTORY: Respiratory failure. COMPARISON: Chest 10/31/2020. FINDINGS: The feeding tube is curled within the stomach. Right jugular central venous catheter termin ates at the SVC. No pneumothorax. The heart is top normal in size. Hazy bibasilar airspace opacities persist. Trace left pleural effusion. IMPRESSION: 1. No change in the bibasilar hazy airspace opacities. 2. Trace left pleural effusion. 3. Feeding tube terminates in the proximal stomach. This remains unchanged. ACT 112: Negative or not required by law. Electronically signed by: Ziggy Brown M.D. 11/01/2020 8:02 AM
[2020-11-01] MEDS: FAMOTIDINE 20 MG in SYRINGE 3 ML IV SCH (07:58)
[2020-11-01] MEDS: ASPIRIN 81 MG CHEW PO SCH (07:58)
[2020-11-01] MEDS: CINACALCET HCL 30 MG TAB PO SCH ×2 (07:58→20:59)
[2020-11-01] MEDS ORDERED: POTASSIUM PHOSPHATE 24 MMOL in SODIUM CHLORIDE 0.9% 500 ML IV ONE (08:00)
--- NOTE | 2020-11-01 08:02 | Critical Care Progress Note ---
Date of Service November 01, 2020 Assessment & Plan (1) Admitted to intensive care unit: Reason Critically Ill: 75-year-old male who presented to [facility] on 10/29/2020 for altered mental status, CVA, severe electrolyte derangements, rhabdomyolysis, and sepsis requiring close hemodynamic monitoring and electrolyte monitoring in the setting of acuity of illness. ICU Day 4. Neuro - [facility] ICU: POSITIVE - CVA - right-sided weakness and left-sided gaze, repeat CT head on 10/31 shows more noticeable bilateral basal ganglia hypodensities (mainly globus pallidus) and left anterior temporal lobe extending to the left thalamus - cardioembolic vs septic emboli in setting of possible endocarditis vs flow failure (sepsis/hypovolemia) - found down, for unknown period of time - out of window for thrombolytics - TTE pending (may consider GEOFF based on results) - Carotid duplex pending - would continue with MRI brain +/- MRA head/neck after transfer - AMS, improving (follows simple commands today) - likely secondary to CVA (above) as well as metabolic encephalopathy 2/2 electrolyte abnormalities (hypercalcemia, hypernatremia), acute renal failure w/ profound uremia, sepsis - PRN Morphine 2mg IV Q6H for knee pain Cardiac - Hypotension 2/2 hypovolemia/sepsis, improving - decreased IVFs to D5W @150cc/hr - Nephro on board - appreciate recs - maintaining MAP>65 without pressors x24 hours - d/c Levophed - Elevated Troponin - peaked at 0.8, likely demand ischemia 2/2 hypotension/sepsis and rhabdomyolysis may be contributing - continue to monitor on tele - continue Aspirin, held Atorvastatin due to transaminitis (see below) Respiratory - CXR showing stable appearance in bibasilar hazy airspace opacities - likely represents aspiration pneumonitis (afebrile, stable WBC, already received broad- spectrum abx) - continue Vanco/Rocephin (see below) - Patient saturating well on 2L NC - Supplemental O2 PRN. GI - Mild transaminitis, stable - likely 2/2 hypotension/sepsis as well as rhabdomyolysis (see below) - continue to trend LFTs - held home Atorvastatin - NPO for now, pending improvement in mental status - will start tube feeds today RENAL/LYTES - Primary Hyperparathyroidism - corrected calcium 11.4, PTH 1098 - continue Cinacalcet 30mg PO Q12H via NG tube - trend Calcium - mild decrease thus far - will likely require parathyroidectomy at some point, as outpatient - Hypernatremia - likely due to dehydration/hypovolemia, improved to 151 today on D5W - decreased D5W to 100cc/hr - goal 141 in next 24 hours - Acute Renal Failure, improving - likely due to hypovolemia/sepsis as well as rhabdomyolysis - continue with IVF resuscitation as above - Rhabdomyolysis - patient found facedown for unknown amount of time - slightly increased today, continue to trend CPK - Continue with IV fluids as mentioned above - Appreciate nephrology recs - K 3.5/Phos 2.0 - repleted - continue moran - strict I/Os ENDO - continue basal SQ insulin/SSI, BSGs per unit protocol - no history of thyroid disease HEME - Stable H&H, monitor CBC ID - sepsis with confirmed Staph bacteremia - ?septic arthritis source? - Blood cx 09/11 positive for Staph - speciation/sensitivities pending, repeat blood cx 11/01 pending - R knee XR showing effusion, eschar on knee - possible septic arthritis source - Ortho consulted - appreciate recs (may need arthrocentesis) - arthrocentesis 10/31 showing WBC 5000 and RBC 23717 - cx pending - CXR showing possible aspiration pneumonitis/PNA - Urine culture no growth - Received Rocephin in the ED, will continue with Vanco/Ceftriaxone (day 3) - Monitor fever curve LINES/IV ACCESS - Removed Right IJ CVL and left radial a-line - PIVx2, NG tube, moran intact. DVT PROPHYLAXIS - Heparin 5000 units SQ Q8H, SCDs CODE STATUS: DNR/DNI (per advanced directive) Dispo: Patient will be downgraded to med/surg with tele today. Discussed the yolanda owens primary hospitalist. Thank you for allowing us to be part of this patient's care. Please refer to Dr. Rodrigues's documentation for any further recommendations. (2) Acute renal failure: (3) Acute alteration in mental status: (4) Hypernatremia: (5) Encephalopathy: (6) Rhabdomyolysis: (7) Elevated lactic acid level: (8) Transaminitis: (9) Hyperglycemia: (10) Hypothermia: (11) Pressure ulcer: Admission and Anticipated Discharge Date Admission Date: October 29, 2020 Supervising Physician Co-Signing Physician Notes Dr Corrales was the resident-physician during care of patient. I separately evaluated patient for puga portions of the history and the exam. I was present during the critical portion of medical decision making, and I discussed the case with the resident. I generally agree with the findings and plan except for any additions/exceptions noted. Patient seen and examined at bedside. No acute distress. No adverse events overnight. Patient had a CT of the head yesterday which showed large subacute infarct which goes with the physical examination of right-sided neglect and right upper hand paralysis. Patient was on low-dose Levophed at time of examination with map in the 80s. I do not think patient needs to be on vasopressors. Patient opens his eyes to voice and does follow simple. Patient is s/p arthrocentesis of the left knee. Which showed WBC count of 5000. It was hemorrhagic. Blood culture growing staph. Sensitivity to follow. Continue with vancomycin. Repeat blood cultures today Patient does have hypercalcemia with corrected calcium going around 11. PTH was in the thousand. This is likely primary hyperparathyroidism. We will start the patient on cinacalcet. Patient will eventually need parathyroidectomy. I do not think it is urgent. Calcitonin can be thought of if the calcium still persistently stays up. Patient's hyponatremia is improving. Today is 151. Goal in the next 24 hours 141. I decrease the D5 water to 150 mL/h. In/out: +2 L, urine output 3560 --Prophylaxis VTE: Heparin GI: Pepcid Lines: Right IJ, right radial, Moran Diet: Start trophic feeds Hypophosphatemia and hypokalemia being replaced Patient's living will reviewed. Patient did not want any aggressive measures. We will change the CODE STATUS to DNR/DNI. We will downgrade the patient to a medical floor. DC right IJ as well as radial line prior to discharge. Moran can be discontinued in the next 24 hours. Chuck Miller, brother [phone] Please note the above document was generated using voice recognition software. It may contain grammatical, syntax or spelling errors.Any formal questions or concerns about the content, text or information contained within the body of this dictation should be directly addressed to the provider for clarification. Subjective No acute events overnight. Patient's mental status has mildly improved - he is now able to answer "yes" to questions and is able to follow simple commands such as to wiggle his toes. Denies pain - further hx/ROS limited by AMS. Review of Systems Review of Systems: Pertinent positives and negatives mentioned in HPI - limited due to AMS Physical Exam Physical Exam: General: NAD. responds yes to questions, follows simple commands. Nasal cannula in place. HEENT: Atraumatic, normocephalic. Pulm: Decreased air entry bilaterally, -wheezes, -rales, -rhonchi. Symmetrical chest rise. No increase work of breathing. No respiratory distress. Chest: bruising on right side of chest Cardiac: RRR, -mrg. Radial pulses intact and symmetrical. Abdominal: soft, non-tender, non-distended, hypoactive BS x 4 Skin: No clubbing or peripheral cyanosis. Large (8x4 cm) eschars on anterior knees bilaterally. Neuro: does not move right upper extremity but other extremities with strength intact. Left sided gaze. unable to further assess due to impaired mental status Results & Data Results & Data ([facility]) Vital Signs (Past 12 Hours) Vital Signs Temp Pulse Resp BP Pulse Ox 11/01/20 07:30 75 27 H 92 11/01/20 07:25 96 H 24 112/64 90 11/01/20 07:15 77 24 93 11/01/20 07:00 79 27 H 92 11/01/20 06:55 75 24 130/63 92 11/01/20 06:45 73 20 93 11/01/20 04:55 72 28 H 116/64 92 11/01/20 04:26 75 30 H 136/61 89 L 11/01/20 04:00 76 103/69 11/01/20 03:55 36.8 C 76 26 H 129/111 H 93 11/01/20 03:26 74 27 H 132/102 H 95 11/01/20 02:56 73 24 123/58 L 96 11/01/20 02:26 73 26 H 110/58 L 96 11/01/20 01:56 73 23 107/63 95 11/01/20 01:26 75 26 H 116/80 95 11/01/20 00:55 75 27 H 128/62 93 11/01/20 00:26 75 26 H 122/58 L 95 11/01/20 00:00 83 10/31/20 23:55 36.9 C 72 27 H 120/62 96 10/31/20 23:26 74 27 H 115/60 96 10/31/20 22:55 76 31 H 111/61 96 10/31/20 22:25 73 29 H 144/62 H 95 10/31/20 21:55 74 27 H 132/66 96 10/31/20 21:25 75 27 H 132/58 L 96 10/31/20 20:55 77 30 H 116/63 95 10/31/20 20:25 79 29 H 117/63 95 11/01/20 05:01 11/01/20 05:01 Resident Activity Tracking Resident Involvement: Resident Care Provided Care Provided: Adult Hospital Medicine (1) Acute renal failure Acute renal failure type: unspecified Qualified Code(s): N17.9 - Acute kidney failure, unspecified (2) Pressure ulcer Pressure injury location: unspecified location Pressure injury stage: unspecified pressure injury stage Qualified Code(s): L89.90 - Pressure ulcer of unspecified site, unspecified stage
--- NOTE | 2020-11-01 08:58 | Neurology Progress Note ---
Date of Service November 01, 2020 Assessment & Plan (1) Acute alteration in mental status: (2) Acute renal failure: (3) Hypernatremia: (4) Transaminitis: (5) Stroke: Jaspreet Miller is a 75 yo man w/ unknown PMH (HTN, HLD, BPH from medication list) who p/t [facility] on 10/29/20 after being found down at home with his (who was COVID positive). Neurology consulted for AMS in setting of new strokes. Symptom localization: left hemispheric predominantly given right sided weakness/neglect, AMS multifactorial Stroke mechanism: cardioembolic vs septic emboli from endocarditis vs flow failure, less likely CO poisoning Stroke WorkUp: - CT head: Repeat CT head on 10/31 shows more noticeable bilateral basal ganglia hypodensities (mainly globus pallidus) and left anterior temporal lobe extending to the left thalamus. - MRA head/neck w/o: pending (vs MRA head w/o and carotid dopplers); strongly recommend getting this prior to the weekend as he could have mycotic aneurysms or septic emboli that would change potential treatment going forward - MRI brain: pending - TTE: pending, consider GEOFF to r/o endocarditis given staph bacteremia - Telemetry: NSR - A1c: 6.0 - FLP: pending - UDS: negative - Troponin, TSH: negative, WNL - Carotid Dopplers: pending Stroke Management: - Continuous cardiac monitoring, will consider Holter monitor as outpatient if telemetry here unrevealing - Vitals, Neurochecks, NIHSS per unit routine - BP parameters: SBP CAP 180, continue anti-hypertensives if needed (though he has been hypotensive) - Obtain MRI brain to evaluate stroke burden, MRA head w/o to look at vessels, carotid dopplers - Complete ischemic stroke workup with TTE without bubble, fasting lipid panel - Consult speech, PT, OT for supportive management Secondary Stroke Prevention: - Antiplatelet: continue ASA 81mg po daily - Anticoagulation: Not indicated at this time - Statin: start atorvastatin 40mg daily when safe to start from liver/overall infection standpoint HTN: - BP parameters, as above FEN/GI: - Diet: NPO until cleared by Speech evaluation - Monitor lytes and replete PRN - Management of ARF per renal/primary team Glucose Control: - Sliding scale insulin and accuchecks per primary team to avoid hyperglycemia # AMS: likely multifactorial in the setting of ARF/uremia (BUN>40 still with multiple electrolyte abnormalities), bacteremia, possible endocarditis, transaminitis, and multiple new strokes. Slowly improving with time. Thank you for this interesting consult. Plan of care was discussed with primary team. Please call with any questions. Admission and Anticipated Discharge Date Admission Date: October 29, 2020 Subjective NAEs overnight. A little more alert this morning. Review of Systems Review of Systems: Unobtainable due to cognitive status Results & Data ([facility]) Vital Signs (Past 12 Hours) Vital Signs Temp Pulse Resp BP Pulse Ox 11/01/20 07:30 75 27 H 92 11/01/20 07:25 96 H 24 112/64 90 11/01/20 07:15 77 24 93 11/01/20 07:00 79 27 H 92 11/01/20 06:55 75 24 130/63 92 11/01/20 06:45 73 20 93 11/01/20 04:55 72 28 H 116/64 92 11/01/20 04:26 75 30 H 136/61 89 L 11/01/20 04:00 76 103/69 11/01/20 03:55 36.8 C 76 26 H 129/111 H 93 11/01/20 03:26 74 27 H 132/102 H 95 11/01/20 02:56 73 24 123/58 L 96 11/01/20 02:26 73 26 H 110/58 L 96 11/01/20 01:56 73 23 107/63 95 11/01/20 01:26 75 26 H 116/80 95 11/01/20 00:55 75 27 H 128/62 93 11/01/20 00:26 75 26 H 122/58 L 95 11/01/20 00:00 83 10/31/20 23:55 36.9 C 72 27 H 120/62 96 10/31/20 23:26 74 27 H 115/60 96 10/31/20 22:55 76 31 H 111/61 96 10/31/20 22:25 73 29 H 144/62 H 95 10/31/20 21:55 74 27 H 132/66 96 10/31/20 21:25 75 27 H 132/58 L 96 Exam (Neuro) Physical Exam: General Exam: GEN: NAD, lying in bed HEENT: No conjunctival injection, no rhinorrhea. CV: RRR, trace peripheral edema PULM: Nonlabored respirations on room air. Neuro Exam: MS: Drowsy, arousable to voice and noxious stimuli. Will occasionally open eyes spontaneously and look around room. Unable to answer orientation questions, though will intermittently follow commands and answer yes/no to questions. Unable to fully assess speech or memory 2/2 mental status. No true neglect of the right side, just a preference to pay attention to the left side. CN: +blink to threat in left visual field, unclear in right visual field. Eyes midline with no gaze preference, able to move eyes when head turned side to side. Facial muscles full and symmetric. Hearing intact to conversation. MOTOR: Normal bulk, flaccid tone in RUE. LUE antigravity with minimal drift, RUE immediate drift to bed. BLEs antigravity with minimal drift to bed. SENSORY: Withdraws/grimaces to noxious stimuli throughout. COORDINATION: unable to assess 2/2 mental status and weakness GAIT: deferred given physical status PG Care Time/CCT Total # of Minutes Spent Total Time Spent with Patient: Total time spent is greater than 50% in coordination of care (as documented) at patient's floor/unit and/or counseling patient: Coding Level of Care Code 80085 Subseq Hosp Care Lvl 3 Diagnoses Acute alteration in mental status R41.82 Acute renal failure N17.9 Acute renal failure type: unspecified Hypernatremia E87.0 Transaminitis R74.01 Stroke I63.9 (1) Acute renal failure Acute renal failure type: unspecified Qualified Code(s): N17.9 - Acute kidney failure, unspecified
[2020-11-01] MEDS ORDERED: ATORVASTATIN 40 MG TAB PO SCH (09:00)
[2020-11-01] MEDS: THIAMINE HCL 100 MG in SYRINGE 9 ML IV SCH ×2 (09:43→20:59)
--- NOTE | 2020-11-01 09:50 | Orthopedic Progress Note ---
Date of Service November 01, 2020 Assessment & Plan (1) Skin necrosis: He has necrosis of the skin on the anterior aspect of both knees. This does not appear infected at all. I would recommend localized wound care for now. He may require debridement of the eschar is at some point in the future, but this certainly is not urgent. Skin coverage in this area will likely be difficult, and will likely require plastic surgery input after debridement. He has no evidence of a septic arthritis in either knee. No urgent surgical intervention required at this point. Admission and Anticipated Discharge Date Admission Date: October 29, 2020 Subjective Patient seen and examined. Is still acutely ill in the ICU. He does respond to questions, but his speech is garbled and difficult to understand. Unclear if he has any pain in his knees. He is unable to provide any history on his knees. Patient chart reviewed. He was found down at home on October 29. He is now in [facility] ICU with hepatic encephalopathy, renal failure, staph bacteremia with sepsis, and stroke. Orthopedics was consulted for his knees. He has necrotic skin on the anterior aspect of both knees, and had knee effusions. The larger right knee effusion was aspirated yesterday. Physical Exam Physical Exam: Examination bilateral knees reveals obvious skin necrosis on the anterior aspect of both knees, left larger than right. Is about 10 cm in the length on both knees, and may be 7 cm in width on the left knee and 4 cm in width on the right knee. No evidence of surrounding infection. No erythema, induration, fluctuance, or drainage. The area looks dry and necrotic. No significant palpable knee effusion today on either knee. No warmth or erythema on either knee. Results & Data ([facility]) Vital Signs (Past 12 Hours) Vital Signs Temp Pulse Resp BP Pulse Ox 11/01/20 07:30 75 27 H 92 11/01/20 07:25 96 H 24 112/64 90 11/01/20 07:15 77 24 93 11/01/20 07:00 79 27 H 92 11/01/20 06:55 75 24 130/63 92 11/01/20 06:45 73 20 93 11/01/20 04:55 72 28 H 116/64 92 11/01/20 04:26 75 30 H 136/61 89 L 11/01/20 04:00 76 103/69 11/01/20 03:55 36.8 C 76 26 H 129/111 H 93 11/01/20 03:26 74 27 H 132/102 H 95 11/01/20 02:56 73 24 123/58 L 96 11/01/20 02:26 73 26 H 110/58 L 96 11/01/20 01:56 73 23 107/63 95 11/01/20 01:26 75 26 H 116/80 95 11/01/20 00:55 75 27 H 128/62 93 11/01/20 00:26 75 26 H 122/58 L 95 11/01/20 00:00 83 10/31/20 23:55 36.9 C 72 27 H 120/62 96 10/31/20 23:26 74 27 H 115/60 96 10/31/20 22:55 76 31 H 111/61 96 10/31/20 22:25 73 29 H 144/62 H 95 10/31/20 21:55 74 27 H 132/66 96 Laboratory Results Right knee arthrocentesis results were reviewed. Only show 5200 white blood cells, and 76,000 red blood cells, no crystals, and no organisms on Gram stain.
--- NOTE | 2020-11-01 10:23 | Nephrology Progress Note ---
Date of Service November 01, 2020 Assessment & Plan (1) Acute kidney failure: 75 -year-old male with unknown past medical history, brought to ER after found lying down on floor at home. On admission found to be hypothermic and hypotensive. Has RAMON hypernatremia and metabolic acidosis. No history of CKD, baseline creatinine 1.0-1.1. Unclear exactly what started the whole clinical deterioration as no detailed information about medical history and current medication available. However ac [place] kidney injury, electrolyte abnormality and hypotension points toward significant volume depletion. Renal function continues to improve, decent urine output, acidosis resolved. Potassium normal. Remained volume contracted. Chronic hypercalcemia with volume contraction and primary hyperparathyroidism, elevated PTH at least since 2017 --continue D5W. --continue on Sensipar. Eventually will need to to be evaluated for parathyroidectomy as an outpatient. --monitor serum sodium q.12 hours --expect renal function to continue to improve Will sign off,will be available if further assistance needed. Admission and Anticipated Discharge Date Admission Date: October 29, 2020 Avelina Vogel was seen and evaluated in ICU this morning. Awake, alert but no improvement in mental status, remained acutely ill. Blood pressure improved and has been stable. Urine output improved. Renal function has been improving, still remain volume depleted, sodium high. Potassium normal, acidosis resolved. Review of Systems 2 Review of Systems: Unobtainable due to mental health condition Physical Exam Constitutional: + ill appearing, + altered mental status and + lethargic; no acute distress Eyes: + anicteric sclerae; no conjunctival abnormality Neck: normal visual inspection Respiratory: normal respiratory effort; no respiratory distress and no cough Auscultation: + diminished lung sounds; no crackles, no rales and no wheezes Cardiovascular: RRR, no murmur, no edema Gastrointestinal (Abdomen): Inspection/Auscultation: normal bowel sounds Percussion/Palpation: abdomen soft; abdomen nontender, no guarding and abdomen not rigid Skin: no rashes, warm and dry + lesion (on forhead); no rashes Neurologic: awake and + confused; no focal motor deficits Speech / Cognition: + abnormal cognition Results & Data ([facility]) Vital Signs (Past 12 Hours) Vital Signs Temp Pulse Resp BP Pulse Ox 11/01/20 07:30 75 27 H 92 11/01/20 07:25 96 H 24 112/64 90 11/01/20 07:15 77 24 93 11/01/20 07:00 79 27 H 92 11/01/20 06:55 75 24 130/63 92 11/01/20 06:45 73 20 93 11/01/20 04:55 72 28 H 116/64 92 11/01/20 04:26 75 30 H 136/61 89 L 11/01/20 04:00 76 103/69 11/01/20 03:55 36.8 C 76 26 H 129/111 H 93 11/01/20 03:26 74 27 H 132/102 H 95 11/01/20 02:56 73 24 123/58 L 96 11/01/20 02:26 73 26 H 110/58 L 96 11/01/20 01:56 73 23 107/63 95 11/01/20 01:26 75 26 H 116/80 95 11/01/20 00:55 75 27 H 128/62 93 11/01/20 00:26 75 26 H 122/58 L 95 11/01/20 00:00 83 10/31/20 23:55 36.9 C 72 27 H 120/62 96 10/31/20 23:26 74 27 H 115/60 96 10/31/20 22:55 76 31 H 111/61 96 10/31/20 22:25 73 29 H 144/62 H 95 PG Care Time/CCT Total # of Minutes Spent Total Time Spent with Patient: Total time spent is greater than 50% in coordination of care (as documented) at patient's floor/unit and/or counseling patient: Coding Level of Care Code 33989 Subseq Hosp Care Lvl 3 Diagnoses Acute kidney failure N17.9
--- NOTE | 2020-11-01 12:09 | Ultrasound Report ---
ULTRASOUND OF THE CAROTID ARTERIES CLINICAL HISTORY: Embolic stroke. Evaluate for carotid stenosis COMPARISON STUDY: None. TECHNIQUE: Real-time, grayscale, and color Doppler sonography of the carotid arteries was performed. Imaging reviewed in the transverse and longitudinal planes. NASCET criteria was utilized for stenosis calcification. FINDINGS: There is moderate atherosclerotic plaque present . The peak systolic velocity within the right internal carotid artery is 90 cm/sec. The systolic velocity ratio of right internal to common carotid artery is 1.3. The left internal and external carotid arteries are occluded. Antegrade flow is seen in the vertebral arteries. The external carotid arteries are patent. IMPRESSION: 1. 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 2. No evidence of hemodynamically significant right internal carotid artery stenosis ACT 112: Negative or not required by law. Electronically signed by: Eric Lora M.D. 11/01/2020 12:07 PM
--- NOTE | 2020-11-01 12:16 | Hospitalist Progress Note ---
Date of Service November 01, 2020 Assessment & Plan (1) Stroke: Unclear if embolic (possibly septic) vs. ischemic. - MRI/MRA pending - Carotids done - Await read - ASA 81 mg daily - Start statin once stable/able. (2) Bacteremia: Staph growing in 3/4 bottles of blood from 10/29. - Unclear source as ortho feels knees are not infected and right knee aspirate from 10/31 is still negative. - ICU team added vancomycin to ceftriaxone. - Continue both - Follow species and sensitivity from 10/29 -> All growing Staph spc. - ID consulted given bacteremia (3) Encephalopathy: Stroke vs. metabolic/infectious/toxic encephalopathy from elevation of the BUN. - CT head on 10/29 showed no acute issues. - Repeat CT head on 10/31 now with stroke. ICU consulted neurology. - Some improvement per ICU providers. - MRI brain/MRA head ordered. (4) Hypernatremia: Na is 151 today. TFWD is 4L. - Continue 1/2 NSS at 100 mL hour (5) Acute kidney failure: Charbel elevated BUN/creatinine likely based on dehydration and rhabdomyolysis. - Nephrology following - Appreciate recs. Improving BUN, and Cr. down to 2.75 today. - Taper fluids given concern for cerebral edema. (6) Hyperglycemia: No known DM, and A1c this admission was only 6.0%. Possibly a stress response. - Monitor blood sugars (7) Skin necrosis: (8) DVT prophylaxis: Heparin 5,000 units SQ Q8h Admission and Anticipated Discharge Date Admission Date: October 29, 2020 Subjective No response for me today. Review of Systems Review of Systems: Unobtainable due to cognitive status Physical Exam Constitutional: + acute distress and + disheveled Eyes: no conjunctival abnormality and + EOM not intact (Will not track to the right.) ENMT: external ear and nose normal, oropharynx normal Neck: trachea midline, no thyromegaly normal visual inspection Respiratory: + labored breathing; no respiratory distress Auscultation: + crackles and + rales Cardiovascular: Rate/Rhythm: regular rate and regular rhythm Heart Sounds: normal S1 and normal S2 Extremities: no edema Gastrointestinal (Abdomen): Inspection/Auscultation: abdomen normal to inspection; abdomen not distended Musculoskeletal: Head/Neck/Chest: + abnormal inspection of chest wall (Bruising, skin damage); + evidence of head trauma Skin: + ulcer (On knees) Neurologic: + does not move all extremities and + not awake Psychiatric: Orientation: + not alert, + not oriented to person and + uncooperative Results & Data Results & Data ([facility]) Vital Signs (Past 12 Hours) Vital Signs Temp Pulse Resp BP Pulse Ox 11/01/20 10:26 77 31 H 103/59 L 91 11/01/20 10:00 89 26 H 92 11/01/20 09:26 88 26 H 113/61 91 11/01/20 09:00 87 27 H 92 11/01/20 08:57 94 H 27 H 115/56 L 91 11/01/20 08:26 90 28 H 117/71 92 11/01/20 08:00 37.2 C 76 23 93 11/01/20 07:56 74 27 H 125/65 93 11/01/20 07:30 75 27 H 92 11/01/20 07:25 96 H 24 112/64 90 11/01/20 07:15 77 24 93 11/01/20 07:00 79 27 H 92 11/01/20 06:55 75 24 130/63 92 11/01/20 06:45 73 20 93 11/01/20 04:55 72 28 H 116/64 92 11/01/20 04:26 75 30 H 136/61 89 L 11/01/20 04:00 76 103/69 11/01/20 03:55 36.8 C 76 26 H 129/111 H 93 11/01/20 03:26 74 27 H 132/102 H 95 11/01/20 02:56 73 24 123/58 L 96 11/01/20 02:26 73 26 H 110/58 L 96 11/01/20 01:56 73 23 107/63 95 11/01/20 01:26 75 26 H 116/80 95 11/01/20 00:55 75 27 H 128/62 93 11/01/20 00:26 75 26 H 122/58 L 95 PG Care Time/CCT Total # of Minutes Spent Total Time Spent with Patient: Total time spent is greater than 50% in coordination of care (as documented) at patient's floor/unit and/or counseling patient: Coding Level of Care Code 20591 Subseq Hosp Care Lvl 3 Diagnoses Stroke I63.9 Bacteremia R78.81 Encephalopathy G93.40 Hypernatremia E87.0 Acute kidney failure N17.9 Hyperglycemia R73.9 Skin necrosis I96 DVT prophylaxis Z29.9
--- NOTE | 2020-11-01 12:24 | Billing Data ---
Date of Service November 01, 2020 Coding Level of Care Code 95655 Subseq Hosp Care Lvl 3
[2020-11-01] MEDS ORDERED: VANCOMYCIN HCL 1,250 MG in SODIUM CHLORIDE 0.9% 250 ML IV ONE (13:00)
[2020-11-01] MEDS: SODIUM CHLORIDE 0.45 % 1,000 ML IV SCH (13:30)
[2020-11-01] MEDS: PROSOURCE NO CARB 30 ML/PKT NG SCH (13:30)
--- NOTE | 2020-11-01 14:00 | Pharmacy Report ---
Pharmacy Glycemic Short Note 2 - Date of Service November 01, 2020 - Glycemic Short BSG Results (Last 24 hours): 10/31/20 10/31/20 10/31/20 13:47 16:49 22:15 Glucose 239 H POC Glucose 236 H 205 H POC Glucose (other) 11/01/20 11/01/20 11/01/20 00:10 01:15 04:51 Glucose 203 H POC Glucose POC Glucose (other) 181 H 158 H 11/01/20 11/01/20 11/01/20 05:01 08:17 11:11 Glucose 165 H POC Glucose 157 H 118 H POC Glucose (other) OUTPATIENT ANTIDIABETIC REGIMEN: * N/A * A1c 6.0% ASSESSMENT: 11/01 * Na 151 mmol/L this morning, D5W @ 200 mL/hr adjusted to 1/2NS @100 mL/hr at 1230, continues on ceftriaxone/vancomycin, SCr improving, norepinephrine discontinued * BSGs elevated yesterday with dextrose infusion but have trended downward today 158-157-118 mg/dL, held AM lantus, will adjust novolog back to set correction/carb ratio as dextrose infusion has been turned off- was previously on icu protocol * Trickle TF started with peptamen 1.5 @ 10 ml/hr * Will set lantus scale for PM. 10/30 * Patient presenting with multiple issues; rhadomyolysis, metabolic acidosis. * BSG 300 this morning, bicarb infusion switched to sterile water overnight, beta-hydroxybutyrate 3.13 this morning * Discussed starting insulin infusion this morning, per provider wants to utilize subq initially, may transition to insulin infusion this afternoon if needed * Patient is NPO but was receiving some medications in dextrose, including norepinephrine. Started with full weight based stress of 1 lantus and wieght based stress of 3 correction. PLAN FOR INPATIENT GLYCEMIC CONTROL: * Hold outpatient oral diabetes medications * Basal insulin * Lantus 0/10 units this evening per scale * Bolus insulin * NovoLog per scale ACHS or Q6hrs while NPO * Goal Range: Low 120 mg/dL - High 160 mg/dL * Correction Factor: 20 mg/dL/unit * Nutritional / Prandial insulin per carb ratio of 1 unit per 9 grams CHO consumed PLAN FOR DISCHARGE: * tbd
--- NOTE | 2020-11-01 14:01 | Pharmacy Report ---
Pharmacy Abx Dose Short Note - Date of Service November 01, 2020 - Assessment & Plan Assessment 75 year old M receiving vancomycin/ceftriaxone for treatment of staph bacteremia. Awaiting speciation to narrow antibiotics. WBC 15 today, afebrile, repeat blood cultures pending. SCr continues to improve. Plan Vancomycin * Received additional 750 mg dose x 1 last PM, random level 17.6 mcg/mL * Random level this AM 23.4 mcg/mL- will redose with 1250 mg (14 mg/kg) today @1300 * Random level ordered for 11/02 with AM labs Pharmacy will continue to follow and will adjust dose/frequency as necessary. Thank you.
--- NOTE | 2020-11-01 14:24 | XCELERA ---
[id number]
[2020-11-01 15:30] LABS: BUN Creatinine Ratio 36.8 (10-20); Calcium 8.7 mg/dl (8.5-10.1); Est GFR (African American) 26.6; Est GFR (Non-African American) 22.9; Potassium 3.7 mmol/L (3.5-5.1)
[2020-11-01 15:33] LABS: Magnesium 1.8 mg/dl (1.8-2.4); Phosphorus 2.9 mg/dl (2.5-4.9)
[2020-11-01] MEDS: PEPTAMEN 1.5 CAL 1,000 ML BAG NG SCH (16:31)
[2020-11-01] MEDS ORDERED: INSULIN GLARGINE SOLOSTAR 100 UNITS/ML 3 ML PEN SC ONE (20:00)
[2020-11-02] MEDS: SODIUM CHLORIDE 0.45 % 1,000 ML IV SCH ×3 (00:55→18:56)
[2020-11-02] MEDS: INSULIN ASPART 100 UNITS/ML 3 ML PEN SC SCH ×7 (01:08→23:50)
[2020-11-02] MEDS: HEPARIN SOD 5,000 UNIT/0.5 ML VIAL SQ SCH ×2 (06:43→20:20)
--- NOTE | 2020-11-02 07:24 | Magnetic Resonance Report ---
Brain MRI WITHOUT CONTRAST HISTORY: Altered mental status. Stroke TECHNIQUE: Multiplanar multisequence MRI of the brain was performed without the use of contrast. COMPARISON STUDY: None. FINDINGS: There is restricted diffusion seen within the left basal ganglia, posterior limb of the lef t internal capsule, left thalamus, left frontal lobe, and left occipital lobe consistent with acute i nfarcts. Corresponding T2 hyperintensity consistent with edema. Old lacunar infarction within the rig ht basal ganglia and right cerebellar hemisphere. The major vascular flow-voids at the skull base are well-maintained. There is mild mass effect along the left lateral ventricle without significant midl ine shift. No mass identified. There is a central punctate focus of susceptibility artifact within th e left basal ganglia infarct. This could represent early hemorrhagic transformation. IMPRESSION: 1. Left-sided acute infarcts as described above. 2. There is a central punctate focus of susceptibility artifact within the left basal ganglia infarct . This could represent early hemorrhagic transformation. Follow-up head CT recommended for further ev aluation. 3. These findings were called/faxed to the referring physician following dictation. ACT 112: Negative or not required by law. Electronically signed by: Ziggy Brown M.D. 11/02/2020 7:22 AM
--- NOTE | 2020-11-02 07:29 | Magnetic Resonance Report ---
MR ANGIOGRAPHY OF THE [place] OF [place] NO CONTRAST CLINICAL HISTORY: Stroke like symptoms COMPARISON STUDY: None. A 3-D [id number] MR angiographic sequence of the [place] was performed. Both the source and projection images were reviewed. The left internal carotid artery appears occluded. The left middle cerebral artery territory is suppl ied via a patent anterior communicating artery. There is slightly diminished flow visualized within t he left middle cerebral artery territory as compared to the right. There are no lesion suspicious for aneurysm. The study is degraded due to motion artifact. IMPRESSION: 1. Motion degraded study 2. Left internal carotid artery occlusion 3. No evidence of aneurysm ACT 112: Negative or not required by law. Electronically signed by: Eric Lora M.D. 11/02/2020 7:28 AM
[2020-11-02 08:01] LABS: Hematocrit (blood only) 36.3 % (42-52); Mean Corpuscular Hemoglobin 31.5 pg (25-34); Mean Corpuscular Hgb Conc 33.1 g/dL (32-36); Mean Corpuscular Volume 95.3 fL (80-100); Platelet Count 150 K/uL (130-400); Red Blood Count 3.81 M/uL (4.7-6.1); White Blood Count 13.57 K/uL (4.8-10.8)
[2020-11-02] MEDS: FAMOTIDINE 20 MG in SYRINGE 3 ML IV SCH (08:25)
[2020-11-02] MEDS: CINACALCET HCL 30 MG TAB PO SCH ×2 (08:25→20:20)
[2020-11-02] MEDS: PROSOURCE NO CARB 30 ML/PKT NG SCH (08:25)
[2020-11-02] MEDS: ASPIRIN 81 MG CHEW PO SCH (08:25)
[2020-11-02] MEDS: THIAMINE HCL 100 MG in SYRINGE 9 ML IV SCH (08:26)
[2020-11-02 08:27] LABS: Albumin Level 1.4 gm/dl (3.4-5.0); BUN Creatinine Ratio 33.2 (10-20); Calcium 9.6 mg/dl (8.5-10.1); Creatinine Clr Calc Pharmacy 32.2 ml/min; Est GFR (African American) 29.7; Est GFR (Non-African American) 25.6; Magnesium 1.9 mg/dl (1.8-2.4); Potassium 3.4 mmol/L (3.5-5.1)
[2020-11-02 08:29] LABS: Albumin Globulin Ratio 0.4 (0.9-2); Bilirubin,Total 0.6 mg/dl (0.2-1); Globulin 3.6 gm/dl (2.5-4.0); Phosphorus 2.8 mg/dl (2.5-4.9)
--- NOTE | 2020-11-02 09:16 | CT Scan Report ---
HEAD CT NONCONTRAST CT DOSE: 614.27 mGy.cm HISTORY: Abnormal MRI. Possible intracranial hemorrhage TECHNIQUE: Multiaxial CT images of the head were performed without the use of intravenous contrast. A utomated exposure control was utilized for this study. A dose lowering technique was utilized adheri ng to the principles of ALARA. Comparison: Brain MRI 11/01/2020. Head CT 10/31/2020. Findings: The paranasal sinuses and mastoid air cells are clear. Redemonstration of the left basal ga nglia and left posterior internal capsule acute to subacute infarcts. No evidence for hemorrhagic tra nsformation. There is an old right basal ganglia infarct. No mass or midline shift. Impression: No change in the left-sided acute/subacute infarcts. No evidence for hemorrhagic transformation at th is time. ACT 112: Negative or not required by law. Electronically signed by: Ziggy Brown M.D. 11/02/2020 9:15 AM
--- NOTE | 2020-11-02 12:38 | Hospitalist Progress Note ---
Date of Service November 02, 2020 Assessment & Plan (1) Stroke: Unclear if embolic (possibly septic) vs. ischemic. - MRI brain on 11/01 showed left basal ganglia, posterior limb of the left internal capsule, left thalamus, left frontal lobe, and left occipital lobe consistent with acute infarcts. 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 - Carotids on 11/01 showed occlusion/thrombosis of the distal left common carotid, left internal carotid, and left external carotid artery. - ASA 81 mg daily - Start Plavix per neurology - Start statin (2) Bacteremia: Coag(-) Staph growing in 3/4 bottles of blood from 10/29. A second Staph spc is also growing, though not yet speciated. - Unclear source as ortho feels knees are not infected and right knee aspirate from 10/31 is still negative. - On ceftriaxone from 10/30 to 11/01 - ID consulted given bacteremia & no source - Continue vancomycin (3) Encephalopathy: Stroke vs. metabolic/infectious/toxic encephalopathy from elevation of the BUN. - CT head on 10/29 showed no acute issues. - MRI brain/MRA head as above -> Seemingly more likely the stroke as he has not improved while here. (4) Hypercalcemia: Primary hyperparathyroidism with elevated iPTH all the way back to 2017. - Clearly untreated as it was >1000 on admission; higher than ever. - Continue cinacalcet - Ca down to 9.6 today (though 11.7 when corrected for albumin) (5) Hypernatremia: Na is 149 today. TFWD is 4L. - Continue 1/2 NSS at 100 mL hour - Dietary will add free water flushes to feedings as well to help. (6) Acute kidney failure: Charbel elevated BUN/creatinine likely based on dehydration and rhabdomyolysis. - Nephrology followed - Appreciate recs. Improving BUN, and Cr. down to 2.4 today. - Trend Cr (7) Hyperglycemia: No known DM, and A1c this admission was only 6.0%. Possibly a stress response. - Monitor blood sugars -> Presently down to 110 - 120. (8) Skin necrosis: On both knees and chest wall. - Ortho following knees without present concern for infection. (9) DVT prophylaxis: Heparin 5,000 units SQ Q8h Admission and Anticipated Discharge Date Admission Date: October 29, 2020 Subjective No cogent response to physical or verbal stimulus. He will moan somewhat, but otherwise no following commands or intelligible responses. Review of Systems Review of Systems: Unobtainable due to cognitive status Physical Exam Constitutional: + acute distress and + disheveled Eyes: no conjunctival abnormality and + EOM not intact (Will not track.) ENMT: external ear and nose normal, oropharynx normal Neck: trachea midline, no thyromegaly normal visual inspection Respiratory: + labored breathing; no respiratory distress Auscultation: + crackles and + rales Cardiovascular: Rate/Rhythm: regular rate and regular rhythm Heart Sounds: normal S1 and normal S2 Extremities: no edema Gastrointestinal (Abdomen): Inspection/Auscultation: abdomen normal to inspection; abdomen not distended Musculoskeletal: Head/Neck/Chest: + abnormal inspection of chest wall (Bruising, skin damage) Skin: + ulcer (On knees) Neurologic: awake; + does not move all extremities Psychiatric: Orientation: + not alert, + not oriented to person and + uncooperative Results & Data Results & Data ([facility]) Vital Signs (Past 12 Hours) Vital Signs Temp Pulse Pulse Resp BP Pulse Ox 11/02/20 11:46 37 C 73 16 98/55 L 92 11/02/20 07:36 37.2 C 78 18 99/61 L 93 11/02/20 07:06 64 11/02/20 04:14 37.1 C 65 22 91/50 L 92 PG Care Time/CCT Total # of Minutes Spent Total Time Spent with Patient: Total time spent is greater than 50% in coordination of care (as documented) at patient's floor/unit and/or counseling patient: Coding Level of Care Code 51364 Subseq Hosp Care Lvl 3 Diagnoses Stroke I63.9 Bacteremia R78.81 Encephalopathy G93.40 Hypercalcemia E83.52 Hypernatremia E87.0 Acute kidney failure N17.9 Hyperglycemia R73.9 Skin necrosis I96 DVT prophylaxis Z29.9
[2020-11-02] MEDS ORDERED: VANCOMYCIN HCL 1,000 MG in SODIUM CHLORIDE 0.9% 250 ML IV ONE (13:00)
[2020-11-02] MEDS: TUBE FEEDING WATER FLUSH NG SCH ×3 (13:08→20:23)
--- NOTE | 2020-11-02 13:34 | Palliative Care Consultation ---
Date of Consultation November 02, 2020 Assessment & Plan (1) Palliative care encounter: Jaspreet is not able to provide any guidance on his goals of care at this time. Unfortunately, his , Yuni, who is his surrogate decision maker is also gravely ill. He does have a living will which indicates no CPR, no feeding tube, no interventions if he were in a terminal condition. I did speak with his brother, Chuck, on the phone. Chuck has not seen him in five years but has been in contact with him. He is traveling to [place] from his home in [place] at this time. He is aware that his prognosis is poor. Palliative care will follow to assist with goals of care and discuss further with Chuck when he arrives and has had an opportunity to see Jaspreet. (2) Acute kidney failure: (3) Rhabdomyolysis: (4) Transaminitis: (5) Stroke: (6) Bacteremia: History of Present Illness Reason for Consultation: goals of care Requesting Physician: Dr. Kidd Attending Physician: Fernando Kidd MD History of Present Illness 75 yo gentleman found unresponsive, hypernatremia, hypothermic with RAMON. Initial workup for toxicology or metabolic cause has been negative. He has unfortunately developed Staph bacteremia related to multiple pressure wounds as well as an ischemic CVA with left ICA occlusion. He is minimally responsive with sternal rub and unable to provide any information. Allergies Allergy/AdvReac Type Severity Reaction Status Date / Time No Known Allergies Unverified 10/29/20 15:32 Home Medications Medication Instructions Recorded Confirmed Type Super Beta Prostate 1 tab PO DAILY 10/29/20 10/29/20 History lisinopril 20 mg PO DAILY 10/29/20 10/29/20 History simvastatin 20 mg PO DAILY 10/29/20 10/29/20 History Patient History Medical History High cholesterol Hypernatremia Hypertension Social History Smoking Status: Unknown if ever smoked Preferred Language: American Communication Ability: Unable Current Living Situation: Spouse Assistive Devices: None Review of Systems Review of Systems: Unobtainable due to reduced consciousness Palliative Pe rformance Score 20% Physical Exam Constitutional: + lethargic; no acute distress Eyes: does not follow, OD does not cross midline Respiratory: normal respiratory effort; no labored breathing Cardiovascular: Extremities: no edema Gastrointestinal (Abdomen): Inspection/Auscultation: abdomen not distended Percussion/Palpation: abdomen nontender Neurologic: + obtunded Results & Data ([facility]) Vital Signs (Past 12 Hours) Vital Signs Temp Pulse Pulse Resp BP Pulse Ox 11/02/20 11:46 98.6 F 73 16 98/55 L 92 11/02/20 07:36 99.0 F 78 18 99/61 L 93 11/02/20 07:06 64 11/02/20 04:14 98.8 F 65 22 91/50 L 92 PG Care Time/CCT Total # of Minutes Spent Total Time Spent with Patient: Total time spent is greater than 50% in coordination of care (as documented) at patient's floor/unit and/or counseling patient: Total time spent 60 minutes with more than 50% of time spent on family update and support, goals of care, coordination of care. Coding Level of Care Code 43275 Inpt Consult Level 3 Diagnoses Palliative care encounter Z51.5 Acute kidney failure N17.9 Rhabdomyolysis M62.82 Transaminitis R74.01 Stroke I63.9 Bacteremia R78.81
--- NOTE | 2020-11-02 13:46 | Pharmacy Report ---
Pharmacy Glycemic Short Note 2 - Date of Service November 02, 2020 - Glycemic Short BSG Results (Last 24 hours): 11/01/20 11/01/20 11/01/20 15:01 16:04 20:09 Glucose 107 H POC Glucose 96 118 H 11/02/20 11/02/20 11/02/20 00:16 04:09 07:26 Glucose 109 H POC Glucose 121 H 107 H 11/02/20 11/02/20 07:59 12:06 Glucose POC Glucose 117 H 111 H OUTPATIENT ANTIDIABETIC REGIMEN: * N/A * A1c 6.0% ASSESSMENT: 11/02 * Continues on 1/2 NS @ 100 mL/hr, Vancomycin for bacteremia * Pt required 0 units of insulin after switch to 1/2NS. BSGs today 107-117-111 mg/dL. * Peptamen continues @ 10 mL/hr, loosened novolog parameters, will continue to monitor BSGs, may be able to d/c novolog but will keep for now/uncertain if tube feeds will be increased 11/01 * Na 151 mmol/L this morning, D5W @ 200 mL/hr adjusted to 1/2NS @100 mL/hr at 1230, continues on ceftriaxone/vancomycin, SCr improving, norepinephrine discontinued * BSGs elevated yesterday with dextrose infusion but have trended downward today 158-157-118 mg/dL, held AM lantus, will adjust novolog back to set correction/carb ratio as dextrose infusion has been turned off- was previously on icu protocol * Trickle TF started with peptamen 1.5 @ 10 ml/hr * Will set lantus scale for PM. 10/30 * Patient presenting with multiple issues; rhadomyolysis, metabolic acidosis. * BSG 300 this morning, bicarb infusion switched to sterile water overnight, beta-hydroxybutyrate 3.13 this morning * Discussed starting insulin infusion this morning, per provider wants to utilize subq initially, may transition to insulin infusion this afternoon if needed * Patient is NPO but was receiving some medications in dextrose, including norepinephrine. Started with full weight based stress of 1 lantus and wieght based stress of 3 correction. PLAN FOR INPATIENT GLYCEMIC CONTROL: * Hold outpatient oral diabetes medications * Basal insulin * Hold * Bolus insulin * NovoLog per scale ACHS or Q6hrs while NPO * Goal Range: Low 120 mg/dL - High 160 mg/dL * Correction Factor: 20 mg/dL/unit * Nutritional / Prandial insulin per carb ratio of 1 unit per 15 grams CHO consumed PLAN FOR DISCHARGE: * tbd
--- NOTE | 2020-11-02 14:51 | Neurology Progress Note ---
Date of Service November 02, 2020 Assessment & Plan (1) Acute alteration in mental status: (2) Acute renal failure: (3) Hypernatremia: (4) Transaminitis: (5) Stroke: Jaspreet Miller is a 75 yo man w/ unknown PMH (HTN, HLD, BPH from medication list) who p/t [facility] on 10/29/20 after being found down at home with his (who was COVID positive). Neurology consulted for AMS in setting of new strokes. Symptom localization: left hemispheric predominantly given right sided weakness/neglect, AMS multifactorial Stroke mechanism: Suspect that he had an unknown chronic L ICA occlusion that caused strokes in the setting of hypotension/hypoperfusion, less likely cardioembolic. Stroke WorkUp: - CT head: Repeat CT head on 10/31 shows more noticeable bilateral basal ganglia hypodensities (mainly globus pallidus) and left anterior temporal lobe extending to the left thalamus. - MRA head/neck w/o: L CCA occlusion extending up to the L ICA with extension to the proximal L MCA - MRI brain: subacute infarcts in the left occipital lobe, left medial temporal lobe, left thalamus/IC and left centrum semiovale, with chronic infarct in the right basal ganglia - TTE: no valvular vegetation noted - Telemetry: NSR - A1c: 6.0 - FLP: pending - UDS: negative - Troponin, TSH: negative, WNL - Carotid Dopplers: occlusion of the distal left CCA extending to the L ICA and L ECA Stroke Management: - Continuous cardiac monitoring, will consider Holter monitor as outpatient if telemetry here unrevealing - Vitals, Neurochecks, NIHSS per unit routine - BP parameters: SBP CAP 180, continue anti-hypertensives if needed (though he has been hypotensive) - Complete ischemic stroke workup with fasting lipid panel - Consult speech, PT, OT for supportive management Secondary Stroke Prevention: - Antiplatelet: continue ASA 81mg po daily - Anticoagulation: Not indicated at this time - Statin: start atorvastatin 40mg daily when safe to start from liver/overall infection standpoint HTN: - BP parameters, as above FEN/GI: - Diet: NPO until cleared by Speech evaluation - Monitor lytes and replete PRN - Management of ARF per renal/primary team Glucose Control: - Sliding scale insulin and accuchecks per primary team to avoid hyperglycemia # AMS: likely multifactorial in the setting of ARF/uremia (BUN>40 still with multiple electrolyte abnormalities), bacteremia, possible endocarditis, transaminitis, and multiple new strokes. Anticipate that when uremia resolves, he will start to become more alert. Thank you for this interesting consult. Plan of care was discussed with primary team. Please call with any questions. Admission and Anticipated Discharge Date Admission Date: October 29, 2020 Subjective NAEs overnight. Continues to have minimal interaction with environment and weakness of right side (RUE>RLE). MRI brain shows subacute infarcts in the left occipital lobe, left medial temporal lobe, left thalamus/IC and left centrum semiovale, with chronic infarct in the right basal ganglia. Continues to have leukocytosis, anemia, milder hypernatremia, and elevated BUN (80 today) with AST continuing to up-trend. TTE did not show clear vegetations. Review of Systems Review of Systems: Unobtainable due to cognitive status Results & Data ([facility]) Vital Signs (Past 12 Hours) Vital Signs Temp Pulse Pulse Resp BP Pulse Ox 11/02/20 11:46 37 C 73 16 98/55 L 92 11/02/20 07:36 37.2 C 78 18 99/61 L 93 11/02/20 07:06 64 11/02/20 04:14 37.1 C 65 22 91/50 L 92 Exam (Neuro) Physical Exam: General Exam: GEN: NAD, lying in bed HEENT: No conjunctival injection, no rhinorrhea. CV: RRR, trace peripheral edema PULM: Nonlabored respirations on room air. Neuro Exam: MS: Drowsy, arousable to voice and noxious stimuli. Will occasionally open eyes spontaneously and look around room. Unable to answer orientation questions, though will intermittently follow commands and answer yes/no to questions. Unable to fully assess speech or memory 2/2 mental status. No true neglect of the right side, just a preference to pay attention to the left side. CN: +blink to threat in left visual field, unclear in right visual field. Eyes midline with no gaze preference, able to move eyes when head turned side to side. Facial muscles full and symmetric. Hearing intact to conversation. MOTOR: Normal bulk, flaccid tone in RUE. LUE antigravity with minimal drift, RUE immediate drift to bed. BLEs antigravity with minimal drift to bed. SENSORY: Withdraws/grimaces to noxious stimuli throughout. COORDINATION: unable to assess 2/2 mental status and weakness GAIT: deferred given physical status PG Care Time/CCT Total # of Minutes Spent Total Time Spent with Patient: Total time spent is greater than 50% in coordination of care (as documented) at patient's floor/unit and/or counseling patient: Coding Level of Care Code 15483 Subseq Hosp Care Lvl 3 Diagnoses Acute alteration in mental status R41.82 Acute renal failure N17.9 Acute renal failure type: unspecified Hypernatremia E87.0 Transaminitis R74.01 Stroke I63.9 (1) Acute renal failure Acute renal failure type: unspecified Qualified Code(s): N17.9 - Acute kidney failure, unspecified
--- NOTE | 2020-11-02 15:19 | Pharmacy Report ---
Pharmacy Abx Dose Short Note - Date of Service November 02, 2020 - Assessment & Plan Assessment 75 year old M receiving vancomycin for treatment of coag negative staph bacteremia, resistant to oxacillin, today is day 4 of vancomycin. ID has been consulted. Right knee culture with no growth, repeat blood cultures are no growth at 24 hours, WBC trending down, remains afebrile. Plan Vancomycin * Random level 24.4 mcg/ml, will redose with 1000 mg x1 today * SCr continues to improve but will continue dosing by levels for now * Random level and SCr with AM labs to assist with dosing Pharmacy will continue to follow and will adjust dose/frequency as necessary. Thank you.
[2020-11-03] MEDS: TUBE FEEDING WATER FLUSH NG SCH ×6 (01:55→21:45)
[2020-11-03] MEDS: SODIUM CHLORIDE 0.45 % 1,000 ML IV SCH ×2 (04:02→13:30)
[2020-11-03] MEDS: INSULIN ASPART 100 UNITS/ML 3 ML PEN SC SCH ×4 (04:05→18:16)
--- NOTE | 2020-11-03 08:31 | Orthopedic Progress Note ---
Date of Service November 03, 2020 Assessment & Plan (1) Skin necrosis: He has necrosis of the skin on the anterior aspect of both knees. Mostly unchanged. This does not appear infected at all, no erythema or drainage. Continue localized wound care for now. He may require debridement of the eschar is at some point in the future when stable. May require plastic surgery input after debridement. Cultures from right knee aspirate with no growth to date. No urgent surgical intervention required at this point. Will continue to follow. Admission and Anticipated Discharge Date Admission Date: October 29, 2020 Subjective Patient with bilateral anterior knee skin necrosis. He continues to be minimall responsive. Sleeping on my arrival today, does not respond to verbal stimuli. No apparent distress with palpation to knee. Review of Systems Review of Systems: Unobtainable due to cognitive status Physical Exam Physical Exam: Right knee-Eschar anterior aspect of knee, unchanged. Minimal pinkish erythema superior aspect. Minimal joint effusion Left knee-Eschar unchanged, minimal joint effusion. Mild pinkish color superior aspect of eschar. Constitutional: + ill appearing; no acute distress Results & Data ([facility]) Vital Signs (Past 12 Hours) Vital Signs Temp Pulse Pulse Resp BP Pulse Ox 11/03/20 08:00 37.1 C 82 24 124/66 94 11/03/20 03:25 36.6 C 72 18 120/71 92 11/03/20 00:34 69 11/02/20 23:35 36.9 C 69 18 130/66 93
[2020-11-03] MEDS: HEPARIN SOD 5,000 UNIT/0.5 ML VIAL SQ SCH ×2 (08:34→21:45)
[2020-11-03] MEDS: CINACALCET HCL 30 MG TAB PO SCH ×2 (08:34→21:45)
[2020-11-03] MEDS: ASPIRIN 81 MG CHEW PO SCH (08:34)
[2020-11-03] MEDS: PROSOURCE NO CARB 30 ML/PKT NG SCH (08:34)
[2020-11-03] MEDS: CLOPIDOGREL BISULFATE 75 MG TAB PO SCH (08:34)
[2020-11-03] MEDS: LANSOPRAZOLE 15 MG SOLTAB PO SCH (08:34)
[2020-11-03 09:08] LABS: Hematocrit (blood only) 34.6 % (42-52); Hemoglobin 11.1 g/dL (14.0-18.0); Mean Corpuscular Hemoglobin 30.8 pg (25-34); Mean Corpuscular Hgb Conc 32.1 g/dL (32-36); Mean Corpuscular Volume 96.1 fL (80-100); Mean Platelet Volume 11.8 fL (7.4-10.4); Platelet Count 172 K/uL (130-400); RDW Coefficient of Variation 13.9 % (11.5-14.5); RDW Standard Deviation 48.7 fL (36.4-46.3); White Blood Count 13.09 K/uL (4.8-10.8)
[2020-11-03 09:45] LABS: Albumin Level 1.3 gm/dl (3.4-5.0); BUN Creatinine Ratio 30.6 (10-20); Calcium 9.6 mg/dl (8.5-10.1); Creatinine Clr Calc Pharmacy 39.5 ml/min; Est GFR (African American) 37.5; Est GFR (Non-African American) 32.3; Potassium 3.4 mmol/L (3.5-5.1)
[2020-11-03 09:52] LABS: Albumin Globulin Ratio 0.4 (0.9-2); Bilirubin,Total 0.5 mg/dl (0.2-1); Globulin 3.6 gm/dl (2.5-4.0); Magnesium 1.8 mg/dl (1.8-2.4); Phosphorus 2.5 mg/dl (2.5-4.9); Total Protein 4.9 gm/dl (6.4-8.2)
[2020-11-03] MEDS ORDERED: VANCOMYCIN HCL 1,250 MG in SODIUM CHLORIDE 0.9% 250 ML IV ONE (10:00)
--- NOTE | 2020-11-03 10:02 | Pharmacy Report ---
Pharmacy Abx Dose Short Note - Date of Service November 03, 2020 - Assessment & Plan Assessment * 75 year old M receiving vancomycin for treatment of coag-negative Staph bacteremia - unclear source * Blood cultures with 3/4 CoNS - one isolate oxacillin resistant and the other oxacillin sensitive * WBC still elevated but trending down. Afebrile * SCr continues to gradually improve with SCr trending down from 2.4 to 2.0 mg/dL over the last 24 hours Vancomycin * Goal vancomycin trough 15-20 mcg/mL * Random level this AM very slightly above goal at 20.9 mcg/mL * OK to give supplemental vancomycin dose now and will increase as it will be administered earlier in the day and renal function is improving. * Will continue to dose vial level 2nd changing renal function - repeat random level tomorrow AM Plan * Vancomycin 1250 mg IV x1 * Repeat random level with AM labs 11/04 Pharmacy will continue to follow and will adjust dose/frequency as necessary. Thank you.
--- NOTE | 2020-11-03 11:43 | Pharmacy Report ---
Pharmacy Glycemic Short Note 2 - Date of Service November 03, 2020 - Glycemic Short BSG Results (Last 24 hours): 11/02/20 11/02/20 11/02/20 12:06 16:09 20:22 Glucose POC Glucose 111 H 128 H 161 H 11/02/20 11/03/20 11/03/20 23:47 04:01 08:35 Glucose 155 H POC Glucose 137 H 131 H 11/03/20 08:35 Glucose POC Glucose 151 H OUTPATIENT ANTIDIABETIC REGIMEN: * N/A * A1c 6.0% ASSESSMENT: 11/03: * Pt has received 5 units of insulin over the past 24hrs * 0 units of basal * 5 units of bolus with NovoLog * BSGs [phone] mg/dl * All BSGs in goal range with current orders. BSGs stable. Will change NovoLog from Q4hrs to Q6hrs to minimize number of BSG checks 11/02 * Continues on 1/2 NS @ 100 mL/hr, Vancomycin for bacteremia * Pt required 0 units of insulin after switch to 1/2NS. BSGs today 107-117-111 mg/dL. * Peptamen continues @ 10 mL/hr, loosened novolog parameters, will continue to monitor BSGs, may be able to d/c novolog but will keep for now/uncertain if tube feeds will be increased 11/01 * Na 151 mmol/L this morning, D5W @ 200 mL/hr adjusted to 1/2NS @100 mL/hr at 1230, continues on ceftriaxone/vancomycin, SCr improving, norepinephrine discontinued * BSGs elevated yesterday with dextrose infusion but have trended downward today 158-157-118 mg/dL, held AM lantus, will adjust novolog back to set correction/carb ratio as dextrose infusion has been turned off- was previously on icu protocol * Trickle TF started with peptamen 1.5 @ 10 ml/hr * Will set lantus scale for PM. 10/30 * Patient presenting with multiple issues; rhadomyolysis, metabolic acidosis. * BSG 300 this morning, bicarb infusion switched to sterile water overnight, beta-hydroxybutyrate 3.13 this morning * Discussed starting insulin infusion this morning, per provider wants to utilize subq initially, may transition to insulin infusion this afternoon if needed * Patient is NPO but was receiving some medications in dextrose, including norepinephrine. Started with full weight based stress of 1 lantus and wieght based stress of 3 correction. PLAN FOR INPATIENT GLYCEMIC CONTROL: * Hold outpatient oral diabetes medications * Basal insulin * Hold * Bolus insulin * NovoLog per scale ACHS or Q6hrs while NPO * Goal Range: Low 120 mg/dL - High 160 mg/dL * Correction Factor: 20 mg/dL/unit * Nutritional / Prandial insulin per carb ratio of 1 unit per 15 grams CHO consumed PLAN FOR DISCHARGE: * A1c = 6% on indicating "pre-diabetes" * ADA recommendation is to institute diabetes and atherosclerosis prevention * Support Patient Self-Management * Healthy Lifestyle (diet, exercise, and smoking cessation) * Prevention of complications (BP, Lipid goals, Immunizations)
--- NOTE | 2020-11-03 13:18 | Hospitalist Progress Note ---
Date of Service November 03, 2020 Assessment & Plan (1) Stroke: Unclear if embolic (possibly septic) vs. ischemic. - MRI brain on 11/01 showed left basal ganglia, posterior limb of the left internal capsule, left thalamus, left frontal lobe, and left occipital lobe consistent with acute infarcts. 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 - Carotids on 11/01 showed occlusion/thrombosis of the distal left common carotid, left internal carotid, and left external carotid artery. - ASA 81 mg daily, Plavix - Hold statin until LFTs improve (2) Bacteremia: Coag(-) Staph growing in 3/4 bottles of blood from 10/29. A second coag(-) Staph spc is also growing. - Unclear source as ortho feels knees are not infected and right knee aspirate from 10/31 is still negative. - On ceftriaxone from 10/30 to 11/01 - ID consulted given bacteremia & no source - Continue vancomycin (3) Encephalopathy: Stroke vs. metabolic/infectious/toxic encephalopathy from elevation of the BUN. - CT head on 10/29 showed no acute issues. - MRI brain/MRA head as above -> Seemingly more likely the stroke as he has not improved while here. (4) Hypercalcemia: Primary hyperparathyroidism with elevated iPTH all the way back to 2017. - Clearly untreated as it was >1000 on admission; higher than ever. - Continue cinacalcet - Ca down to 9.6 today (though 11.7 when corrected for albumin) (5) Hypernatremia: Na is 149 today. TFWD is 4L. - Continue 1/2 NSS at 100 mL hour - Dietary added free water flushes to feedings which will help. (6) Acute kidney failure: Charbel elevated BUN/creatinine likely based on dehydration and rhabdomyolysis. - Nephrology followed - Appreciate recs. Improving BUN, and Cr. down to 2.0 today. - Trend Cr (7) Hyperglycemia: No known DM, and A1c this admission was only 6.0%. Possibly a stress response. - Monitor blood sugars -> Presently down to 110 - 120. (8) Skin necrosis: On both knees and chest wall. - Ortho following knees without present concern for infection. (9) DVT prophylaxis: Heparin 5,000 units SQ Q12h Admission and Anticipated Discharge Date Admission Date: October 29, 2020 Subjective Spontaneously looking around, but never meets eyes and never follows commands or responses to stimulus. Review of Systems Review of Systems: Unobtainable due to cognitive status Physical Exam Constitutional: + acute distress and + disheveled Eyes: no conjunctival abnormality and + EOM not intact (Will not track.) ENMT: external ear and nose normal, oropharynx normal Neck: trachea midline, no thyromegaly normal visual inspection Respiratory: + labored breathing; no respiratory distress Auscultation: + crackles and + rales Cardiovascular: Rate/Rhythm: regular rate and regular rhythm Heart Sounds: normal S1 and normal S2 Extremities: no edema Gastrointestinal (Abdomen): Inspection/Auscultation: abdomen normal to inspection; abdomen not distended Musculoskeletal: Head/Neck/Chest: + abnormal inspection of chest wall (Bruising, skin damage) Skin: + ulcer (On knees) Neurologic: awake; + does not move all extremities Psychiatric: Orientation: + not alert, + not oriented to person and + uncooperative Results & Data Results & Data ([facility]) Vital Signs (Past 12 Hours) Vital Signs Temp Pulse Pulse Resp BP Pulse Ox 11/03/20 11:58 37.0 C 85 22 109/62 93 11/03/20 09:39 77 11/03/20 08:00 37.1 C 82 24 124/66 94 11/03/20 03:25 36.6 C 72 18 120/71 92 PG Care Time/CCT Total # of Minutes Spent Total Time Spent with Patient: Total time spent is greater than 50% in coordination of care (as documented) at patient's floor/unit and/or counseling patient: Coding Level of Care Code 77350 Subseq Hosp Care Lvl 3 Diagnoses Stroke I63.9 Bacteremia R78.81 Encephalopathy G93.40 Hypercalcemia E83.52 Hypernatremia E87.0 Acute kidney failure N17.9 Hyperglycemia R73.9 Skin necrosis I96 DVT prophylaxis Z29.9
[2020-11-03 20:26] LABS: Lyme DNA PCR CSF or Synovial Not detected (Not Detected); Lyme DNA Source Synovial Fluid
[2020-11-04] MEDS: INSULIN ASPART 100 UNITS/ML 3 ML PEN SC SCH ×4 (00:45→17:27)
[2020-11-04] MEDS: TUBE FEEDING WATER FLUSH NG SCH ×6 (01:00→21:32)
[2020-11-04] MEDS: SODIUM CHLORIDE 0.45 % 1,000 ML IV SCH ×3 (06:09→21:30)
[2020-11-04 07:13] LABS: Hematocrit (blood only) 33.4 % (42-52); Hemoglobin 10.8 g/dL (14.0-18.0); Mean Corpuscular Hemoglobin 30.8 pg (25-34); Mean Corpuscular Hgb Conc 32.3 g/dL (32-36); Mean Corpuscular Volume 95.2 fL (80-100); Mean Platelet Volume 11.7 fL (7.4-10.4); Platelet Count 203 K/uL (130-400); RDW Standard Deviation 48.3 fL (36.4-46.3); Red Blood Count 3.51 M/uL (4.7-6.1); White Blood Count 15.24 K/uL (4.8-10.8)
[2020-11-04 07:46] LABS: Albumin Level 1.3 gm/dl (3.4-5.0); BUN Creatinine Ratio 31.7 (10-20); Calcium 9.3 mg/dl (8.5-10.1); Est GFR (African American) 41.2; Est GFR (Non-African American) 35.6; Magnesium 1.7 mg/dl (1.8-2.4); Potassium 3.8 mmol/L (3.5-5.1)
[2020-11-04 07:49] LABS: Albumin Globulin Ratio 0.4 (0.9-2); Bilirubin,Total 0.5 mg/dl (0.2-1); Globulin 3.6 gm/dl (2.5-4.0); Phosphorus 2.4 mg/dl (2.5-4.9); Total Protein 4.9 gm/dl (6.4-8.2)
[2020-11-04] MEDS ORDERED: ACETAMINOPHEN 1,000 MG/100 ML VIAL IV PRN (08:31)
[2020-11-04] MEDS: ASPIRIN 81 MG CHEW PO SCH (08:42)
[2020-11-04] MEDS: PROSOURCE NO CARB 30 ML/PKT NG SCH (08:42)
[2020-11-04] MEDS: LANSOPRAZOLE 15 MG SOLTAB PO SCH (08:42)
[2020-11-04] MEDS: CLOPIDOGREL BISULFATE 75 MG TAB PO SCH (08:42)
[2020-11-04] MEDS: CINACALCET HCL 30 MG TAB PO SCH ×2 (08:42→21:32)
[2020-11-04] MEDS: HEPARIN SOD 5,000 UNIT/0.5 ML VIAL SQ SCH ×2 (08:43→21:33)
[2020-11-04] MEDS ORDERED: VANCOMYCIN HCL 1,250 MG in SODIUM CHLORIDE 0.9% 250 ML IV ONE (09:00)
--- NOTE | 2020-11-04 09:10 | Pharmacy Report ---
Pharmacy Abx Dose Short Note - Date of Service November 04, 2020 - Assessment & Plan Assessment * 75 year old M receiving vancomycin for treatment of coag-negative Staph bacteremia - unclear source * Patient was also on ceftriaxone from 10/29-11/01 * Blood cultures with 3/4 CoNS - one isolate oxacillin resistant and the other oxacillin sensitive - vancomycin is appropriate coverage * WBC now trended back up from 13.1 to 15.3, which was accompanied by a new fever >38 C axillary x2 this AM - broadening of therapy may be indicated, potentially resuming Gram negative coverage with either ceftriaxone or cefepime. Re-consult ID may also be indicated (previously recommended vancomycin monotherapy on 11/01 but now clinical status has potentially changed). Will contact provider to discuss. * SCr continues to gradually improve with SCr trending down from 1.98 to 1.83 mg/dL over the last 24 hours Vancomycin * Goal vancomycin trough 15-20 mcg/mL * Random level this AM very slightly above goal at 20.6 mcg/mL * OK to give supplemental vancomycin dose now - same as yesterday as level has remained stable near the upper end of the goal range * Will continue to dose vial level 2nd changing renal function - repeat random level tomorrow AM Plan * Vancomycin 1250 mg IV x1 * Repeat random level with AM labs 11/05 Pharmacy will continue to follow and will adjust dose/frequency as necessary. Thank you.
[2020-11-04] MEDS ORDERED: CEFEPIME CONSULT ACTIVE PRN (09:19)
--- NOTE | 2020-11-04 10:43 | Pharmacy Report ---
Pharmacy Glycemic Short Note 2 - Date of Service November 04, 2020 - Glycemic Short BSG Results (Last 24 hours): 11/03/20 11/03/20 11/04/20 11:38 18:14 00:11 Glucose POC Glucose 142 H 142 H 184 H 11/04/20 11/04/20 06:18 06:55 Glucose 178 H POC Glucose 168 H OUTPATIENT ANTIDIABETIC REGIMEN: * N/A * A1c 6.0% ASSESSMENT: 11/04: * Pt has received 7 units of insulin over the past 24hrs * 0 units of basal * 7 units of bolus with NovoLog * BSGs [phone] mg/dl * Continuous tube feedings increased to 30ml/hr. Pt is ordered CHO coverage for tube feedings. Will slightly tighten CR to maintain BSGs < 160 mg/dl * BSGs elevated secondary to RTC administration of tube feedings/continuous CHO. May consider changing NovoLog to Regular insulin for longer duration of action vs adding a small dose of basal insulin- will reassess in 24hrs after tightening CHO ratio. 11/03: * Pt has received 5 units of insulin over the past 24hrs * 0 units of basal * 5 units of bolus with NovoLog * BSGs [phone] mg/dl * All BSGs in goal range with current orders. BSGs stable. Will change NovoLog from Q4hrs to Q6hrs to minimize number of BSG checks 11/02 * Continues on 1/2 NS @ 100 mL/hr, Vancomycin for bacteremia * Pt required 0 units of insulin after switch to 1/2NS. BSGs today 107-117-111 mg/dL. * Peptamen continues @ 10 mL/hr, loosened novolog parameters, will continue to monitor BSGs, may be able to d/c novolog but will keep for now/uncertain if tube feeds will be increased 11/01 * Na 151 mmol/L this morning, D5W @ 200 mL/hr adjusted to 1/2NS @100 mL/hr at 1230, continues on ceftriaxone/vancomycin, SCr improving, norepinephrine discontinued * BSGs elevated yesterday with dextrose infusion but have trended downward today 158-157-118 mg/dL, held AM lantus, will adjust novolog back to set correction/carb ratio as dextrose infusion has been turned off- was previously on icu protocol * Trickle TF started with peptamen 1.5 @ 10 ml/hr * Will set lantus scale for PM. 10/30 * Patient presenting with multiple issues; rhadomyolysis, metabolic acidosis. * BSG 300 this morning, bicarb infusion switched to sterile water overnight, beta-hydroxybutyrate 3.13 this morning * Discussed starting insulin infusion this morning, per provider wants to utilize subq initially, may transition to insulin infusion this afternoon if needed * Patient is NPO but was receiving some medications in dextrose, including norepinephrine. Started with full weight based stress of 1 lantus and wieght based stress of 3 correction. PLAN FOR INPATIENT GLYCEMIC CONTROL: * Hold outpatient oral diabetes medications * Basal insulin * Hold * Bolus insulin: tighten CR * NovoLog per scale ACHS or Q6hrs while NPO * Goal Range: Low 110 mg/dL - High 140 mg/dL * Correction Factor: 20 mg/dL/unit * Nutritional / Prandial insulin per carb ratio of 1 unit per 12 grams CHO consumed PLAN FOR DISCHARGE: * A1c = 6% on indicating "pre-diabetes" * ADA recommendation is to institute diabetes and atherosclerosis prevention * Support Patient Self-Management * Healthy Lifestyle (diet, exercise, and smoking cessation) * Prevention of complications (BP, Lipid goals, Immunizations)
[2020-11-04] MEDS: metroNIDAZOLE 500 MG/100 ML BAG IV SCH ×2 (10:47→17:26)
[2020-11-04] MEDS: CEFEPIME 2,000 MG in SYRINGE 0 ML IV SCH ×2 (10:47→21:32)
--- NOTE | 2020-11-04 11:09 | Neurology Progress Note ---
Date of Service November 04, 2020 Assessment & Plan (1) Acute alteration in mental status: (2) Acute renal failure: (3) Hypernatremia: (4) Transaminitis: (5) Stroke: Jaspreet Miller is a 75 yo man w/ unknown PMH (HTN, HLD, BPH from medication list) who p/t [facility] on 10/29/20 after being found down at home with his (who was COVID positive). Neurology consulted for AMS in setting of new strokes. Symptom localization: left hemispheric predominantly given right sided weakness/neglect, AMS multifactorial Stroke mechanism: Suspect that he had an unknown chronic L ICA occlusion that caused strokes in the setting of hypotension/hypoperfusion, less likely cardioembolic. Stroke WorkUp: - CT head: Repeat CT head on 10/31 shows more noticeable bilateral basal ganglia hypodensities (mainly globus pallidus) and left anterior temporal lobe extending to the left thalamus. - MRA head/neck w/o: L CCA occlusion extending up to the L ICA with extension to the proximal L MCA - MRI brain: subacute infarcts in the left occipital lobe, left medial temporal lobe, left thalamus/IC and left centrum semiovale, with chronic infarct in the right basal ganglia - TTE: no valvular vegetation noted - Telemetry: NSR - A1c: 6.0 - FLP: pending - UDS: negative - Troponin, TSH: negative, WNL - Carotid Dopplers: occlusion of the distal left CCA extending to the L ICA and L ECA Stroke Management: - Continuous cardiac monitoring, will consider Holter monitor as outpatient if telemetry here unrevealing - Vitals, Neurochecks, NIHSS per unit routine - BP parameters: SBP CAP 180, continue anti-hypertensives if needed (though he has been hypotensive) - Complete ischemic stroke workup with fasting lipid panel - Consult speech, PT, OT for supportive management Secondary Stroke Prevention: - Antiplatelet: continue ASA 81mg po daily - Anticoagulation: Not indicated at this time - Statin: start atorvastatin 40mg daily when safe to start from liver/overall infection standpoint HTN: - BP parameters, as above FEN/GI: - Diet: NPO until cleared by Speech evaluation. Would try to start nutrition as this would improve his outcome from a stroke standpoint. - Monitor lytes and replete PRN - Management of ARF per renal/primary team Glucose Control: - Sliding scale insulin and accuchecks per primary team to avoid hyperglycemia # AMS: likely multifactorial in the setting of ARF/uremia (BUN>40 still with multiple electrolyte abnormalities), bacteremia, possible endocarditis, transaminitis, and multiple new strokes. Anticipate that when uremia resolves, he will start to become more alert. - could trial low dose stimulant like amantadine to see if this helps with his alertness (amantadine 100mg q9am/q1pm) - would also treat fever prophylactically with scheduled tylenol and identify source per primary team Thank you for this interesting consult. Plan of care was discussed with primary team. Please call with any questions. Admission and Anticipated Discharge Date Admission Date: October 29, 2020 Subjective Noted to spike a fever early this morning. Otherwise, no significant change in examination. BUN slowly downtrending (last 58), LFTs almost normalized, still having slight electrolyte abnormalities (Na 149, Phos 2.4, Mg 1.7). 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 CV: RRR, trace peripheral edema PULM: Nonlabored respirations on room air. Neuro Exam: MS: Drowsy, arousable to voice and noxious stimuli. Will occasionally open eyes spontaneously and look around room. Unable to answer orientation questions, though will intermittently follow commands and answer yes/no to questions. Unable to fully assess speech or memory 2/2 mental status. No true neglect of the right side, just a preference to pay attention to the left side. CN: +blink to threat in left visual field, unclear in right visual field. Eyes midline with no gaze preference, able to move eyes when head turned side to side. Facial muscles full and symmetric. Hearing intact to conversation. MOTOR: Normal bulk, flaccid tone in RUE. LUE antigravity with minimal drift, RUE immediate drift to bed. BLEs antigravity with minimal drift to bed. SENSORY: Withdraws/grimaces to noxious stimuli throughout. COORDINATION: unable to assess 2/2 mental status and weakness GAIT: deferred given physical status PG Care Time/CCT Total # of Minutes Spent Total Time Spent with Patient: Total time spent is greater than 50% in coordination of care (as documented) at patient's floor/unit and/or counseling patient: Coding Level of Care Code 38445 Subseq Hosp Care Lvl 2 Diagnoses Acute alteration in mental status R41.82 Acute renal failure N17.9 Acute renal failure type: unspecified Hypernatremia E87.0 Transaminitis R74.01 Stroke I63.9 (1) Acute renal failure Acute renal failure type: unspecified Qualified Code(s): N17.9 - Acute kidney failure, unspecified
--- NOTE | 2020-11-04 12:51 | Hospitalist Progress Note ---
Date of Service November 04, 2020 Assessment & Plan (1) Stroke: Unclear if embolic (possibly septic) vs. ischemic. - MRI brain on 11/01 showed left basal ganglia, posterior limb of the left internal capsule, left thalamus, left frontal lobe, and left occipital lobe consistent with acute infarcts. 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 - Carotids on 11/01 showed occlusion/thrombosis of the distal left common carotid, left internal carotid, and left external carotid artery. - ASA 81 mg daily, Plavix -updated brother: poor prognosis. Patient is now having a fever, will add cefepime. -will continue to monitor. palliative care meeting tomorrow. (2) Bacteremia: Coag(-) Staph growing in 3/4 bottles of blood from 10/29. A second coag(-) Staph spc is also growing. - Unclear source as ortho feels knees are not infected and right knee aspirate from 10/31 is still negative. - On ceftriaxone from 10/30 to 11/01 - ID consulted given bacteremia & no source - Continue vancomycin (3) Encephalopathy: Stroke vs. metabolic/infectious/toxic encephalopathy from elevation of the BUN. - CT head on 10/29 showed no acute issues. - MRI brain/MRA head as above -> Seemingly more likely the stroke as he has not improved while here. (4) Hypercalcemia: Primary hyperparathyroidism with elevated iPTH all the way back to 2017. - Clearly untreated as it was >1000 on admission; higher than ever. - Continue cinacalcet - Ca down to 9.6 today (though 11.7 when corrected for albumin) (5) Hypernatremia: Na is 149 today. TFWD is 4L. - Continue 1/2 NSS at 100 mL hour - Dietary added free water flushes to feedings which will help. (6) Acute kidney failure: Charbel elevated BUN/creatinine likely based on dehydration and rhabdomyolysis. - Nephrology followed - Appreciate recs. Improving BUN, and Cr. down to 2.0 today. - Trend Cr (7) Hyperglycemia: No known DM, and A1c this admission was only 6.0%. Possibly a stress response. - Monitor blood sugars -> Presently down to 110 - 120. (8) Skin necrosis: On both knees and chest wall. - Ortho following knees without present concern for infection. (9) DVT prophylaxis: Heparin 5,000 units SQ Q12h Admission and Anticipated Discharge Date Admission Date: October 29, 2020 Subjective Patient remains unresponsive. His brother is at bedside Review of Systems Review of Systems: All systems reviewed & are unremarkable except as noted in HPI & below Physical Exam Physical Exam: Constitutional: lethargic Eyes: no conjunctival abnormality and + EOM not intact (Will not track.) ENMT: external ear and nose normal, oropharynx normal Neck: trachea midline, no thyromegaly normal visual inspection Respiratory: + labored breathing; no respiratory distress Auscultation: + crackles and + rales Cardiovascular: Rate/Rhythm: regular rate and regular rhythm Heart Sounds: normal S1 and normal S2 Extremities: no edema Gastrointestinal (Abdomen): Inspection/Auscultation: abdomen normal to inspection; abdomen not distended Musculoskeletal: Head/Neck/Chest: + abnormal inspection of chest wall (Brui sing, skin damage) Skin: + ulcer (On knees) Neurologic: awake; + does not move all extremities Psychiatric: Orientation: + not alert, + not oriented to person and + uncooperative Results & Data Results & Data ([facility]) Vital Signs (Past 12 Hours) Vital Signs Temp Pulse Pulse Resp BP Pulse Ox 11/04/20 11:17 38.0 C H 80 20 107/63 11/04/20 09:26 63 11/04/20 08:38 38.3 C H 11/04/20 07:32 38.5 C H 86 20 109/65 96 11/04/20 03:39 37.1 C 82 18 109/64 91 PG Care Time/CCT Total # of Minutes Spent Total Time Spent with Patient: Total time spent is greater than 50% in coordination of care (as documented) at patient's floor/unit and/or counseling patient: Coding Level of Care Code 39456 Subseq Hosp Care Lvl 3 Diagnoses Stroke I63.9 Bacteremia R78.81 Encephalopathy G93.40 Hypercalcemia E83.52 Hypernatremia E87.0 Acute kidney failure N17.9 Hyperglycemia R73.9 Skin necrosis I96 DVT prophylaxis Z29.9 Time Spent (min) 35
[2020-11-04 13:53] LABS: Influenza A virus by PCR Negative (Neg); Influenza B virus by PCR Negative (Neg); RSV by PCR Negative (Neg); SARS CoV2 RNA(COVID-19) InHosp NEGATIVE (Negative)
[2020-11-05] MEDS: INSULIN ASPART 100 UNITS/ML 3 ML PEN SC SCH ×4 (00:23→18:08)
[2020-11-05] MEDS: TUBE FEEDING WATER FLUSH NG SCH ×7 (00:25→23:19)
[2020-11-05] MEDS: metroNIDAZOLE 500 MG/100 ML BAG IV SCH ×3 (00:31→18:19)
[2020-11-05] MEDS ORDERED: MICONAZOLE NITRATE POWDER 43 GM EXT PRN (05:49)
[2020-11-05 08:45] LABS: Creatinine Clr Calc Pharmacy 47.6 ml/min; Est GFR (Non-African American) 39.7
[2020-11-05] MEDS ORDERED: INSULIN GLARGINE SOLOSTAR 100 UNITS/ML 3 ML PEN SC SCH (09:00)
--- NOTE | 2020-11-05 09:16 | Pharmacy Report ---
Pharmacy Abx Dose Short Note - Date of Service November 05, 2020 - Assessment & Plan Assessment 75 year old M receiving vancomycin for treatment of bacteremia Day # 7 of antimicrobial therapy. Plan Vancomycin * Random vancomycin level this Am therapeutic at ~18 mcg/ml (goal 15-20 mcg/ml for bacteremia) * Plan to continue to redose by levels with vancomycin today, will order 1250 mg iv x 1 * Scr continuing to improve, plan to order another random level in Am to assist with further dosing * Cefepime/flagyl added on yesterday d/t fevers, ID consulted Pharmacy will continue to follow and will adjust dose/frequency as necessary. Thank you.
[2020-11-05] MEDS: SODIUM CHLORIDE 0.45 % 1,000 ML IV SCH (09:20)
[2020-11-05] MEDS: PROSOURCE NO CARB 30 ML/PKT NG SCH (09:21)
[2020-11-05] MEDS: CLOPIDOGREL BISULFATE 75 MG TAB PO SCH (09:22)
[2020-11-05] MEDS: CINACALCET HCL 30 MG TAB PO SCH ×2 (09:22→23:03)
[2020-11-05] MEDS: LANSOPRAZOLE 15 MG SOLTAB PO SCH (09:22)
[2020-11-05] MEDS: ASPIRIN 81 MG CHEW PO SCH (09:23)
[2020-11-05] MEDS: HEPARIN SOD 5,000 UNIT/0.5 ML VIAL SQ SCH ×2 (09:23→22:58)
[2020-11-05] MEDS: CEFEPIME 2,000 MG in SYRINGE 0 ML IV SCH ×2 (09:29→22:58)
[2020-11-05] MEDS ORDERED: VANCOMYCIN HCL 1,250 MG in SODIUM CHLORIDE 0.9% 250 ML IV ONE (10:00)
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
--- NOTE | 2020-11-05 21:17 | Hospitalist Progress Note ---
Date of Service November 05, 2020 Assessment & Plan (1) Stroke: Unclear if embolic (possibly septic) vs. ischemic. - MRI brain on 11/01 showed left basal ganglia, posterior limb of the left internal capsule, left thalamus, left frontal lobe, and left occipital lobe consistent with acute infarcts. 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 - Carotids on 11/01 showed occlusion/thrombosis of the distal left common carotid, left internal carotid, and left external carotid artery. - ASA 81 mg daily, Plavix -updated brother on 11/04: poor prognosis. Patient is now having a fever, will add cefepime. on 11/05 -will continue to monitor. Palliative care had discussion with . If no improvement may transition to [employer] EXEC[employer]IVE. Patient has not shown significant improvement in past week. Enteral feedings will be temporary and if patient does not show improvement this will be stopped. Will hold IVF as patient is having more crackles and will decrease enteral nutrition in case patient is aspirating. Patient has a poor prognosis (2) Bacteremia: Coag(-) Staph growing in 3/4 bottles of blood from 10/29. A second coag(-) Staph spc is also growing. - Unclear source as ortho feels knees are not infected and right knee aspirate from 10/31 is still negative. - On ceftriaxone from 10/30 to 11/01 - ID consulted given bacteremia & no source - Continue vancomycin (3) Encephalopathy: Stroke vs. metabolic/infectious/toxic encephalopathy from elevation of the BUN. - CT head on 10/29 showed no acute issues. - MRI brain/MRA head as above -> Seemingly more likely the stroke as he has not improved while here. (4) Hypercalcemia: Primary hyperparathyroidism with elevated iPTH all the way back to 2017. - Clearly untreated as it was >1000 on admission; higher than ever. - Continue cinacalcet - Ca down to 9.6 today (though 11.7 when corrected for albumin) (5) Hypernatremia: Na is 149 today. TFWD is 4L. - Continue 1/2 NSS at 100 mL hour - Dietary added free water flushes to feedings which will help. (6) Acute kidney failure: Charbel elevated BUN/creatinine likely based on dehydration and rhabdomyolysis. - Nephrology followed - Appreciate recs. Improving BUN, and Cr. down to 2.0 today. - Trend Cr (7) Hyperglycemia: No known DM, and A1c this admission was only 6.0%. Possibly a stress response. - Monitor blood sugars -> Presently down to 110 - 120. (8) Skin necrosis: On both knees and chest wall. - Ortho following knees without present concern for infection. (9) DVT prophylaxis: Heparin 5,000 units SQ Q12h Admission and Anticipated Discharge Date Admission Date: October 29, 2020 Subjective Patient does not provide significant history. Review of Systems Review of Systems: All systems reviewed & are unremarkable except as noted in HPI & below Physical Exam Physical Exam: Constitutional: lethargic Eyes: no conjunctival abnormality and + EOM not intact (Will not track.) ENMT: external ear and nose normal, oropharynx normal Neck: trachea midline, no thyromegaly normal visual inspection Respiratory: + labored breathing; no respiratory distress Auscultation: + crackles and + rales Cardiovascular: Rate/Rhythm: regular rate and regular rhythm Heart Sounds: normal S1 and normal S2 Gastrointestinal (Abdomen): Inspection/Auscultation: abdomen normal to inspection; abdomen not distended Musculoskeletal: Head/Neck/Chest: + abnormal inspection of chest wall (Bruising, skin damage) Skin: + ulcer (On knees) Neurologic: awake; + does not move all extremities Psychiatric: Orientation: + not alert, + not oriented to person and + uncooperative Results & Data Results & Data ([facility]) Vital Signs (Past 12 Hours) Vital Signs Temp Pulse Pulse Resp BP Pulse Ox 11/05/20 19:00 36.8 C 80 20 109/66 94 11/05/20 16:00 73 11/05/20 15:14 37.8 C H 67 20 110/67 95 11/05/20 11:28 37.6 C H 75 20 106/64 95 PG Care Time/CCT Total # of Minutes Spent Total Time Spent with Patient: Total time spent is greater than 50% in coordination of care (as documented) at patient's floor/unit and/or counseling patient: Coding Level of Care Code 03920 Subseq Hosp Care Lvl 3 Diagnoses Stroke I63.9 Bacteremia R78.81 Encephalopathy G93.40 Hypercalcemia E83.52 Hypernatremia E87.0 Acute kidney failure N17.9 Hyperglycemia R73.9 Skin necrosis I96 DVT prophylaxis Z29.9 Time Spent (min) 35
--- NOTE | 2020-11-05 21:28 | XRay Report ---
KUB CLINICAL HISTORY: Enteric tube placement. FINDINGS: An AP, portable, upright view of the lower chest and upper abdomen is correlated with abdom inal CT dated 10/29/2020. An enteric tube has been placed. The tip projects below the diaphragm over t he gastric fundus. There is no evidence of bowel obstruction. No evidence of intraperitoneal free air seen below the diaphragm. Bibasilar airspace consolidation is noted. IMPRESSION: 1. An enteric tube has been placed as above. 2. Bibasilar airspace consolidation. Electronically signed by: Jasvir Quintana M.D. 11/05/2020 9:27 PM
[2020-11-05] MEDS: METOCLOPRAMIDE HCL 5 MG/5 ML UDP PO SCH (23:03)
[2020-11-05] MEDS: PEPTAMEN 1.5 CAL 1,000 ML BAG NG SCH (23:17)
[2020-11-06] MEDS: INSULIN ASPART 100 UNITS/ML 3 ML PEN SC SCH ×4 (00:50→18:07)
[2020-11-06] MEDS: metroNIDAZOLE 500 MG/100 ML BAG IV SCH ×3 (01:33→18:03)
[2020-11-06] MEDS: TUBE FEEDING WATER FLUSH NG SCH ×6 (02:45→23:48)
[2020-11-06] MEDS ORDERED: ATROPINE SULFATE 1% OP SOLN 5 ML BTL SL PRN (02:55)
[2020-11-06] MEDS: METOCLOPRAMIDE HCL 5 MG/5 ML UDP PO SCH ×3 (05:24→21:52)
[2020-11-06] MEDS: HEPARIN SOD 5,000 UNIT/0.5 ML VIAL SQ SCH ×2 (08:37→20:43)
[2020-11-06] MEDS: PROSOURCE NO CARB 30 ML/PKT NG SCH (08:37)
[2020-11-06] MEDS: CINACALCET HCL 30 MG TAB PO SCH ×2 (08:37→20:42)
[2020-11-06] MEDS: LANSOPRAZOLE 15 MG SOLTAB PO SCH (08:38)
[2020-11-06] MEDS: ASPIRIN 81 MG CHEW PO SCH (08:38)
[2020-11-06] MEDS: CLOPIDOGREL BISULFATE 75 MG TAB PO SCH (08:38)
[2020-11-06] MEDS ORDERED: INSULIN GLARGINE SOLOSTAR 100 UNITS/ML 3 ML PEN SC SCH (09:00)
[2020-11-06 09:02] LABS: Creatinine Clr Calc Pharmacy 49.9 ml/min; Est GFR (African American) 48.5; Est GFR (Non-African American) 41.8
[2020-11-06] MEDS: CEFEPIME 2,000 MG in SYRINGE 0 ML IV SCH ×2 (09:45→21:55)
[2020-11-06] MEDS: VANCOMYCIN HCL 1,250 MG in SODIUM CHLORIDE 0.9% 250 ML IV SCH (09:55)
--- NOTE | 2020-11-06 15:34 | Palliative Care Progress Note ---
Date of Service November 06, 2020 Assessment & Plan (1) Palliative care encounter: Attempted zoom visit for Mrs. Miller with RN inside [facility] unit to see Jaspreet and understand his current status. She unfortunately was having some confusion today and telling me that he was sitting there next to her. She told me that she remembers completing living morales in the past but was not able to recall what it said. I asked her what she had been told about how Jaspreet was doing and she said "they said he was a lot better". We did discuss Jaspreet having a stroke and not being able to interact. We discussed NG feeding tube in place. I told her that his living will indicates that he would not want alf feeding tube, and whether she thought that was what Jaspreet would want. She did not answer. Will try to visit with her and discuss again tomorrow. For now he remains on NG feedings. (2) Stroke: (3) Bacteremia: Admission and Anticipated Discharge Date Admission Date: October 29, 2020 Subjective No response to voice or touch. He does grimace at times. No recent prn pain meds. Review of Systems Review of Systems: Unobtainable due to reduced consciousness Physical Exam Constitutional: no acute distress ENMT: NG feeds at 20cc/hr Respiratory: moist cough Cardiovascular: edema Neurologic: right arm flaccid Results & Data ([facility]) Vital Signs (Past 12 Hours) Vital Signs Temp Pulse Pulse Resp BP Pulse Ox 11/06/20 15:11 99.1 F 91 H 18 110/64 91 11/06/20 11:58 98.6 F 88 20 120/70 92 11/06/20 07:15 90 PG Care Time/CCT Total # of Minutes Spent Total Time Spent with Patient: Total time spent is greater than 50% in coordination of care (as documented) at patient's floor/unit and/or counseling patient: Total time spent 65 minutes with more than 50% of time spent on coordination of zoom visit, discussing goals of care and support for spouse. Coding Level of Care Code 32942 Subseq Hosp Care Lvl 3 Diagnoses Palliative care encounter Z51.5 Stroke I63.9 Bacteremia R78.81 Time Spent (min) 65
--- NOTE | 2020-11-06 21:55 | Hospitalist Progress Note ---
Date of Service November 06, 2020 Assessment & Plan (1) Stroke: Unclear if embolic (possibly septic) vs. ischemic. - MRI brain on 11/01 showed left basal ganglia, posterior limb of the left internal capsule, left thalamus, left frontal lobe, and left occipital lobe consistent with acute infarcts. 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 - Carotids on 11/01 showed occlusion/thrombosis of the distal left common carotid, left internal carotid, and left external carotid artery. - ASA 81 mg daily, Plavix -updated brother on 11/04: poor prognosis. Patient is now having a fever, will add cefepime. on 11/05 -will continue to monitor. Palliative care had discussion with . was not tara to make decision today, may be waxing and waning. Hopefully, tomorrow she is able to make decision. Patient has not shown significant improvement in past week. Enteral feedings will be temporaryheld as patient had a large residual: 500 ml. Will hold IVF as patient is having more crackles and will decrease enteral nutrition in case patient is aspirating. Patient has a poor prognosis (2) Bacteremia: Coag(-) Staph growing in 3/4 bottles of blood from 10/29. A second coag(-) Staph spc is also growing. - Unclear source as ortho feels knees are not infected and right knee aspirate from 10/31 is still negative. - On ceftriaxone from 10/30 to 11/01 - ID consulted given bacteremia & no source - Continue vancomycin -On flagyl (3) Encephalopathy: Stroke vs. metabolic/infectious/toxic encephalopathy from elevation of the BUN. - CT head on 10/29 showed no acute issues. - MRI brain/MRA head as above -> Seemingly more likely the stroke as he has not improved while here. (4) Hypercalcemia: Primary hyperparathyroidism with elevated iPTH all the way back to 2017. - Clearly untreated as it was >1000 on admission; higher than ever. - Continue cinacalcet - Ca down to 9.6 today (though 11.7 when corrected for albumin) (5) Hypernatremia: Na is 149 today. TFWD is 4L. - Continue 1/2 NSS at 100 mL hour - Dietary added free water flushes to feedings which will help. (6) Acute kidney failure: Charbel elevated BUN/creatinine likely based on dehydration and rhabdomyolysis. - Nephrology followed - Appreciate recs. Improving BUN, and Cr. down to 2.0 today. - Trend Cr (7) Hyperglycemia: No known DM, and A1c this admission was only 6.0%. Possibly a stress response. - Monitor blood sugars -> Presently down to 110 - 120. (8) Skin necrosis: On both knees and chest wall. - Ortho following knees without present concern for infection. (9) DVT prophylaxis: Heparin 5,000 units SQ Q12h Admission and Anticipated Discharge Date Admission Date: October 29, 2020 Subjective Not responsive to questions. Physical Exam Physical Exam: Constitutional: lethargic Eyes: no conjunctival abnormality and + EOM not intact (Will not track.) ENMT: external ear and nose normal, oropharynx normal Neck: trachea midline, no thyromegaly normal visual inspection Respiratory: + labored breathing; no respiratory distress Auscultation: + crackles and + rales Cardiovascular: Rate/Rhythm: regular rate and regular rhythm Heart Sounds: normal S1 and normal S2 Gastrointestinal (Abdomen): Inspection/Auscultation: abdomen normal to inspection; abdomen not distended Musculoskeletal: Head/Neck/Chest: + abnormal inspection of chest wall (Bruising, skin damage) Skin: + ulcer (On knees) Neurologic: awake; + does not move all extremities Psychiatric: Orientation: + not alert, + not oriented to person and + uncoo perative Results & Data Results & Data ([facility]) Vital Signs (Past 12 Hours) Vital Signs Temp Pulse Pulse Resp BP Pulse Ox 11/06/20 18:59 37.7 C H 87 18 101/63 90 11/06/20 16:07 90 11/06/20 15:11 37.3 C 91 H 18 110/64 91 11/06/20 11:58 37 C 88 20 120/70 92 PG Care Time/CCT Total # of Minutes Spent Total Time Spent with Patient: Total time spent is greater than 50% in coordination of care (as documented) at patient's floor/unit and/or counseling patient: Coding Level of Care Code 40654 Subseq Hosp Care Lvl 3 Diagnoses Stroke I63.9 Bacteremia R78.81 Encephalopathy G93.40 Hypercalcemia E83.52 Hypernatremia E87.0 Acute kidney failure N17.9 Hyperglycemia R73.9 Skin necrosis I96 DVT prophylaxis Z29.9 Time Spent (min) 35
[2020-11-07] MEDS: INSULIN ASPART 100 UNITS/ML 3 ML PEN SC SCH ×5 (00:19→23:57)
[2020-11-07] MEDS: TUBE FEEDING WATER FLUSH NG SCH ×3 (03:36→11:55)
[2020-11-07] MEDS: METOCLOPRAMIDE HCL 5 MG/5 ML UDP PO SCH ×3 (05:52→20:42)
[2020-11-07 08:36] LABS: Hematocrit (blood only) 33.2 % (42-52); Hemoglobin 10.4 g/dL (14.0-18.0); Mean Corpuscular Hemoglobin 30.3 pg (25-34); Mean Corpuscular Hgb Conc 31.3 g/dL (32-36); Mean Corpuscular Volume 96.8 fL (80-100); Mean Platelet Volume 11.3 fL (7.4-10.4); Platelet Count 382 K/uL (130-400); RDW Coefficient of Variation 14.2 % (11.5-14.5); RDW Standard Deviation 50.3 fL (36.4-46.3); Red Blood Count 3.43 M/uL (4.7-6.1); White Blood Count 15.01 K/uL (4.8-10.8)
[2020-11-07 08:59] LABS: Calcium 9.9 mg/dl (8.5-10.1); Creatinine Clr Calc Pharmacy 51.5 ml/min; Est GFR (African American) 51.2; Est GFR (Non-African American) 44.1; Potassium 4.3 mmol/L (3.5-5.1)
[2020-11-07] MEDS: CINACALCET HCL 30 MG TAB PO SCH ×2 (09:48→20:42)
[2020-11-07] MEDS: HEPARIN SOD 5,000 UNIT/0.5 ML VIAL SQ SCH ×2 (09:48→20:43)
[2020-11-07] MEDS: LANSOPRAZOLE 15 MG SOLTAB PO SCH (09:48)
[2020-11-07] MEDS: ASPIRIN 81 MG CHEW PO SCH (09:48)
[2020-11-07] MEDS: CLOPIDOGREL BISULFATE 75 MG TAB PO SCH (09:49)
[2020-11-07] MEDS: VANCOMYCIN HCL 1,250 MG in SODIUM CHLORIDE 0.9% 250 ML IV SCH (09:52)
--- NOTE | 2020-11-07 16:15 | Palliative Care Progress Note ---
Date of Service November 07, 2020 Assessment & Plan (1) Palliative care encounter: Per RN in covid unit, Jaspreet' , Yuni, not able to participate in goals of care discussion today. I spoke with Chuck, Jaspreet' brother, on the phone with an update, including removal of NG tube and difficulty tolerating feeds prior to this. He understands that prognosis is poor. He would want to defer to Yuni in terms of decision making. Jaspreet does have a living will and has indicated that he would not want artificial feeding. If Yuni were unable to indicate what her preference would be for Daniela care, Chuck would not want to pursue artificial feeding and pursue comfort directed care. (2) Stroke: (3) Skin necrosis: Admission and Anticipated Discharge Date Admission Date: October 29, 2020 Subjective Jaspreet is in bed with eyes open but does not track. He appears to shake his head in response to questions, though not appropriately. He is raising his left arm and has self-removed NG tube. He does not follow commands. Review of Systems Review of Systems: Unobtainable due to cognitive status [place] Symptom Assessment Scale PainAD 1/3 Dyspnea by observation 0/3 Drowsiness 1/3 Palliative Performance Score 20% Physical Exam Constitutional: + altered mental status; no acute distress ENMT: Mouth: + dry oral mucous membranes Respiratory: does not use accessory muscles Cardiovascular: RUE edema Musculoskeletal: right sided weakness Neurologic: Speech / Cognition: + abnormal cognition Results & Data ([facility]) Vital Signs (Past 12 Hours) Vital Signs Temp Pulse Pulse Resp BP Pulse Ox 11/07/20 16:12 97.9 F 73 18 112/77 94 11/07/20 12:06 97.7 F 79 20 119/76 95 11/07/20 07:19 76 11/07/20 07:00 97.9 F 80 22 135/83 97 PG Care Time/CCT Total # of Minutes Spent Total Time Spent with Patient: Total time spent is greater than 50% in coordination of care (as documented) at patient's floor/unit and/or counseling patient: Total time spent 40 min with more than 50% of time spent on family update and education, goals of care, coordination of care Coding Level of Care Code 15703 Subseq Hosp Care Lvl 3 Diagnoses Palliative care encounter Z51.5 Stroke I63.9 Skin necrosis I96
--- NOTE | 2020-11-07 21:21 | Hospitalist Progress Note ---
Date of Service November 07, 2020 Assessment & Plan (1) Stroke: Unclear if embolic (possibly septic) vs. ischemic. - MRI brain on 11/01 showed left basal ganglia, posterior limb of the left internal capsule, left thalamus, left frontal lobe, and left occipital lobe consistent with acute infarcts. 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 - Carotids on 11/01 showed occlusion/thrombosis of the distal left common carotid, left internal carotid, and left external carotid artery. - ASA 81 mg daily, Plavix -updated brother on 11/04: poor prognosis. Patient is now having a fever, will add cefepime. on 11/05 -will continue to monitor. Palliative care had discussion with . continues to be confused. Patient has not shown significant improvement in past week. Enteral feedings will be temporary held as patient had a large residual: 500 ml. Will hold IVF as patient is having more crackles and will decrease enteral nutrition in case patient is aspirating. Patient has a poor prognosis Brother is undecided as to making patient Comfort however, patient does have advanced directives stating he does not want artificial feeding. (2) Bacteremia: Coag(-) Staph growing in 3/4 bottles of blood from 10/29. A second coag(-) Staph spc is also growing. - Unclear source as ortho feels knees are not infected and right knee aspirate from 10/31 is still negative. - On ceftriaxone from 10/30 to 11/01 - ID consulted given bacteremia & no source - Continue vancomycin -On flagyl (3) Encephalopathy: Stroke vs. metabolic/infectious/toxic encephalopathy from elevation of the BUN. - CT head on 10/29 showed no acute issues. - MRI brain/MRA head as above -> Seemingly more likely the stroke as he has not improved while here. (4) Hypercalcemia: Primary hyperparathyroidism with elevated iPTH all the way back to 2017. - Clearly untreated as it was >1000 on admission; higher than ever. - Continue cinacalcet - Ca down to 9.6 today (though 11.7 when corrected for albumin) (5) Hypernatremia: Na is 149 today. TFWD is 4L. - Continue 1/2 NSS at 100 mL hour - Dietary added free water flushes to feedings which will help. (6) Acute kidney failure: Charbel elevated BUN/creatinine likely based on dehydration and rhabdomyolysis. - Nephrology followed - Appreciate recs. Improving BUN, and Cr. down to 2.0 today. - Trend Cr (7) Hyperglycemia: No known DM, and A1c this admission was only 6.0%. Possibly a stress response. - Monitor blood sugars -> Presently down to 110 - 120. (8) Skin necrosis: On both knees and chest wall. - Ortho following knees without present concern for infection. (9) DVT prophylaxis: Heparin 5,000 units SQ Q12h Admission and Anticipated Discharge Date Admission Date: October 29, 2020 Subjective Patient is lethargic. Review of Systems Review of Systems: All systems reviewed & are unremarkable except as noted in HPI & below Physical Exam Physical Exam: Constitutional: lethargic Eyes: no conjunctival abnormality and + EOM not intact (Will not track.) ENMT: external ear and nose normal, oropharynx normal Neck: trachea midline, no thyromegaly normal visual inspection Respiratory: + labored breathing; no respiratory distress Auscultation: + crackles and + rales Cardiovascular: Rate/Rhythm: regular rate and regular rhythm Heart Sounds: normal S1 and normal S2 Gastrointestinal (Abdomen): Inspection/Auscultation: abdomen normal to inspection; abdomen not distended Musculoskeletal: Head/Neck/Chest: + abnormal inspection of chest wall (Bruising, skin damage) Skin: + ulcer (On knees) Neurologic: awake; + does not move all extremities Psychiatric: Orientation: + not alert, + not oriented to person and + uncooperative Results & Data Results & Data ([facility]) Vital Signs (Past 12 Hours) Vital Signs Temp Pulse Resp BP Pulse Ox 11/07/20 18:41 36.9 C 70 22 108/65 94 11/07/20 16:12 36.6 C 73 18 112/77 94 11/07/20 12:06 36.5 C 79 20 119/76 95 PG Care Time/CCT Total # of Minutes Spent Total Time Spent with Patient: Total time spent is greater than 50% in coordination of care (as documented) at patient's floor/unit and/or counseling patient: Coding Level of Care Code 77847 Subseq Hosp Care Lvl 3 Diagnoses Stroke I63.9 Bacteremia R78.81 Encephalopathy G93.40 Hypercalcemia E83.52 Hypernatremia E87.0 Acute kidney failure N17.9 Hyperglycemia R73.9 Skin necrosis I96 DVT prophylaxis Z29.9 Time Spent (min) 35
[2020-11-08] MEDS: METOCLOPRAMIDE HCL 5 MG/5 ML UDP PO SCH ×2 (05:19→12:53)
[2020-11-08] MEDS: INSULIN ASPART 100 UNITS/ML 3 ML PEN SC SCH ×2 (05:47→12:53)
[2020-11-08 07:42] LABS: Est GFR (African American) 47.7; Est GFR (Non-African American) 41.2
[2020-11-08] MEDS: LANSOPRAZOLE 15 MG SOLTAB PO SCH (08:54)
[2020-11-08] MEDS: CLOPIDOGREL BISULFATE 75 MG TAB PO SCH (08:54)
[2020-11-08] MEDS: ASPIRIN 81 MG CHEW PO SCH (08:54)
[2020-11-08] MEDS: HEPARIN SOD 5,000 UNIT/0.5 ML VIAL SQ SCH (08:55)
[2020-11-08] MEDS: CINACALCET HCL 30 MG TAB PO SCH (08:55)
[2020-11-08] MEDS: VANCOMYCIN HCL 1,250 MG in SODIUM CHLORIDE 0.9% 250 ML IV SCH (09:14)
[2020-11-08] MEDS ORDERED: NORMOSOL-R 1,000 ML IV ONE (09:25)
[2020-11-08] MEDS ORDERED: LACTATED RINGER'S 1,000 ML IV SCH (09:30)
--- NOTE | 2020-11-08 09:49 | Pharmacy Report ---
Pharmacy Glycemic Short Note 2 - Date of Service November 08, 2020 - Glycemic Short BSG Results (Last 24 hours): 11/07/20 11/07/20 11/07/20 11:49 18:02 23:47 POC Glucose 116 H 141 H 141 H 11/07/20 11/08/20 11/08/20 23:49 05:43 05:46 POC Glucose 133 H 161 H 165 H 11/08/20 06:05 POC Glucose 171 H OUTPATIENT ANTIDIABETIC REGIMEN: * N/A * A1c 6.0% ASSESSMENT: 11/08: * Pt has received 0 units of insulin over the past 24hrs * 0 units of basal with * 0 units of bolus with NovoLog * BSGs [phone] mg/dl * Pt pulled NG tube - therefore no CHO coverage given/needed x 24hrs * Holding basal insulin based on BSGs and A1c. * Prognosis is poor- will conservatively manage BSGs with NovoLog monotherapy to maintain BSGs < 180 11/04: * Pt has received 7 units of insulin over the past 24hrs * 0 units of basal * 7 units of bolus with NovoLog * BSGs [phone] mg/dl * Continuous tube feedings increased to 30ml/hr. Pt is ordered CHO coverage for tube feedings. Will slightly tighten CR to maintain BSGs < 160 mg/dl * BSGs elevated secondary to RTC administration of tube feedings/continuous CHO. May consider changing NovoLog to Regular insulin for longer duration of action vs adding a small dose of basal insulin- will reassess in 24hrs after tightening CHO ratio. 11/03: * Pt has received 5 units of insulin over the past 24hrs * 0 units of basal * 5 units of bolus with NovoLog * BSGs [phone] mg/dl * All BSGs in goal range with current orders. BSGs stable. Will change NovoLog from Q4hrs to Q6hrs to minimize number of BSG checks 11/02 * Continues on 1/2 NS @ 100 mL/hr, Vancomycin for bacteremia * Pt required 0 units of insulin after switch to 1/2NS. BSGs today 107-117-111 m g/dL. * Peptamen continues @ 10 mL/hr, loosened novolog parameters, will continue to monitor BSGs, may be able to d/c novolog but will keep for now/uncertain if tube feeds will be increased 11/01 * Na 151 mmol/L this morning, D5W @ 200 mL/hr adjusted to 1/2NS @100 mL/hr at 1230, continues on ceftriaxone/vancomycin, SCr improving, norepinephrine discontinued * BSGs elevated yesterday with dextrose infusion but have trended downward today 158-157-118 mg/dL, held AM lantus, will adjust novolog back to set correction/carb ratio as dextrose infusion has been turned off- was previously on icu protocol * Trickle TF started with peptamen 1.5 @ 10 ml/hr * Will set lantus scale for PM. 10/30 * Patient presenting with multiple issues; rhadomyolysis, metabolic acidosis. * BSG 300 this morning, bicarb infusion switched to sterile water overnight, beta-hydroxybutyrate 3.13 this morning * Discussed starting insulin infusion this morning, per provider wants to utilize subq initially, may transition to insulin infusion this afternoon if needed * Patient is NPO but was receiving some medications in dextrose, including norepinephrine. Started with full weight based stress of 1 lantus and wieght based stress of 3 correction. PLAN FOR INPATIENT GLYCEMIC CONTROL: * Hold outpatient oral diabetes medications * Basal insulin * Hold * Bolus insulin: no change * NovoLog per scale ACHS or Q6hrs while NPO * Goal Range: Low 110 mg/dL - High 140 mg/dL * Correction Factor: 20 mg/dL/unit * Nutritional / Prandial insulin per carb ratio of 1 unit per 12 grams CHO consumed PLAN FOR DISCHARGE: * A1c = 6% on indicating "pre-diabetes" * ADA recommendation is to institute diabetes and atherosclerosis prevention * Support Patient Self-Management * Healthy Lifestyle (diet, exercise, and smoking cessation) * Prevention of complications (BP, Lipid goals, Immunizations)
[2020-11-08 10:37] LABS: Hematocrit (blood only) 30.2 % (42-52); Hemoglobin 9.4 g/dL (14.0-18.0)
--- NOTE | 2020-11-08 12:35 | Palliative Care Progress Note ---
Date of Service November 08, 2020 Assessment & Plan (1) Palliative care encounter: Jaspreet remains overall unresponsive today. He was able to open his eyes yesterday, but today was not having any meaningful interaction. He is breathing more shallow today as well. Today, Jaspreet' was pretty lucid in her conversation and does remember that Jaspreet is ill. In speaking with her regarding transition to a more comfort approach, he was in support of such. Yesterday, he did pull his NGT and was having large residual from his feedings. Chuck was updated and in support of a comfort focused transition. Jaspreet does have a living will and has indicated that he would not want artificial feeding or life prolongation measures taken. If Yuni were unable to indicate what her preference would be for Jaspreet' care, Chuck would not want to pursue artificial feeding and pursue comfort directed care, which we will do starting today. Discontinued all non comfort focused medications and care and ordered Morphine 2 mg Q2 PRN for any facial grimacing, breathing changes or furrowed brow. Robinul and Ativan also ordered for comfort focus. It is likely that Mr. Miller has days to a week or two of life expectancy as he does not have any other major comorbidities and has received nutrition up until yesterday. Alternative placement option may need to be discussed through case management, which was relayed today when talking with Bing OWENS. (2) Stroke: (3) Skin necrosis: Admission and Anticipated Discharge Date Admission Date: October 29, 2020 Subjective Patient is lethargic and unresponsive Pulled NGT yesterday see a/p for further details. Review of Systems Review of Systems: [place] Symptom Assessment Scale PainAD 1/3 Dyspnea by observation 0/3 Drowsiness 1/3 Palliative Performance Score 20% Physical Exam Constitutional: + frail appearing and + disheveled Respiratory: Auscultation: + rhonchi Cardiovascular: Rate/Rhythm: regular rate and regular rhythm Extremities: normal capillary refill and + edema Gastrointestinal (Abdomen): normal bowel sounds, soft, nontender, no hepatosplenomegaly Skin: + excoriations and + pallor Psychiatric: A+Ox3, euthymic affect Insight: + impaired insight Judgement: + impaired judgement Results & Data ([facility]) Vital Signs (Past 12 Hours) Vital Signs Temp Pulse Resp BP Pulse Ox 11/08/20 12:15 37.2 C 114 H 20 103/72 93 11/08/20 07:26 37.1 C 124 H 22 91/53 L 95 11/08/20 04:01 37.0 C 98 H 20 115/66 94 PG Care Time/CCT Total # of Minutes Spent Total Time Spent with Patient: Total time spent is greater than 50% in coordination of care (as documented) at patient's floor/unit and/or counseling patient: Total time spent 35 minutes with >50% of that time spent assessing the patient, discussing goals of care with his and brother, providing symptom management and collaborating with IDT Coding Level of Care Code 20569 Subseq Hosp Care Lvl 3 Diagnoses Palliative care encounter Z51.5 Stroke I63.9 Skin necrosis I96 Time Spent (min) 35
[2020-11-08] MEDS ORDERED: GLYCOPYRROLATE 0.2 MG/ML VIAL IM PRN (14:29)
--- NOTE | 2020-11-08 23:11 | Hospitalist Progress Note ---
Date of Service November 08, 2020 Assessment & Plan (1) Stroke: Unclear if embolic (possibly septic) vs. ischemic. - MRI brain on 11/01 showed left basal ganglia, posterior limb of the left internal capsule, left thalamus, left frontal lobe, and left occipital lobe consistent with acute infarcts. 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 - Carotids on 11/01 showed occlusion/thrombosis of the distal left common carotid, left internal carotid, and left external carotid artery. - ASA 81 mg daily, Plavix -updated brother on 11/04: poor prognosis. Patient is now having a fever, will add cefepime. on 11/08 Given that patient has not improved, and expressed that he is not interested in artifical feedings through living will. Patient will now be placed on comfort measures after palliative care meeting with brother. -Comfort orders are placed. (2) Bacteremia: Coag(-) Staph growing in 3/4 bottles of blood from 10/29. A second coag(-) Staph spc is also growing. - Unclear source as ortho feels knees are not infected and right knee aspirate from 10/31 is still negative. - On ceftriaxone from 10/30 to 11/01 - ID consulted given bacteremia & no source - then on vancomycin and flagyl will stop antibiotics as patient is on comfort measures. (3) Encephalopathy: Stroke vs. metabolic/infectious/toxic encephalopathy from elevation of the BUN. - CT head on 10/29 showed no acute issues. - MRI brain/MRA head as above -> Seemingly more likely the stroke as he has not improved while here. (4) Hypercalcemia: Primary hyperparathyroidism with elevated iPTH all the way back to 2017. - Clearly untreated as it was >1000 on admission; higher than ever. - Continue cinacalcet - Ca down to 9.6 today (though 11.7 when corrected for albumin) (5) Hypernatremia: Na is 149 today. TFWD is 4L. - Continue 1/2 NSS at 100 mL hour - Dietary added free water flushes to feedings which will help. (6) Acute kidney failure: Charbel elevated BUN/creatinine likely based on dehydration and rhabdomyolysis. - Nephrology followed - Appreciate recs. Improving BUN, and Cr. down to 2.0 today. - Trend Cr (7) Hyperglycemia: No known DM, and A1c this admission was only 6.0%. Possibly a stress response. - Monitor blood sugars -> Presently down to 110 - 120. (8) Skin necrosis: On both knees and chest wall. - Ortho following knees without present concern for infection. (9) DVT prophylaxis: Heparin 5,000 units SQ Q12h Admission and Anticipated Discharge Date Admission Date: October 29, 2020 Subjective Patient is lethargic. Review of Systems Review of Systems: Unobtainable due to cognitive status Physical Exam Physical Exam: Constitutional: lethargic Eyes: no conjunctival abnormality and + EOM not intact (Will not track.) ENMT: external ear and nose normal, oropharynx normal Neck: trachea midline, no thyromegaly normal visual inspection Respiratory: + labored breathing; no respiratory distress Auscultation: + crackles and + rales Cardiovascular: Rate/Rhythm: regular rate and regular rhythm Heart Sounds: normal S1 and normal S2 Gastrointestinal (Abdomen): Inspection/Auscultation: abdomen normal to inspection; abdomen not distended Musculoskeletal: Head/Neck/Chest: + abnormal inspection of chest wall (Bruising, skin damage) Skin: + ulcer (On knees) Neurologic: awake; + does not move all extremities Psychiatric: Orientation: + not alert, + not oriented to person and + uncooperative Results & Data Results & Data ([facility]) Vital Signs (Past 12 Hours) Vital Signs Temp Pulse Resp BP Pulse Ox 11/08/20 12:15 37.2 C 114 H 20 103/72 93 PG Care Time/CCT Total # of Minutes Spent Total Time Spent with Patient: Total time spent is greater than 50% in coordination of care (as documented) at patient's floor/unit and/or counseling patient: Coding Level of Care Code 97148 Subseq Hosp Care Lvl 2 Diagnoses Stroke I63.9 Bacteremia R78.81 Encephalopathy G93.40 Hypercalcemia E83.52 Hypernatremia E87.0 Acute kidney failure N17.9 Hyperglycemia R73.9 Skin necrosis I96 DVT prophylaxis Z29.9 Time Spent (min) 25
[2020-11-09] MEDS: MoRPHine SULFATE 2 MG/ML CARP IV PRN (09:08)
--- NOTE | 2020-11-09 13:18 | Palliative Care Progress Note ---
Date of Service November 09, 2020 Assessment & Plan (1) Palliative care encounter: Care is focused on comfort. Continue prn morphine, ativan and glycopyrrolate. I spoke with Chuck on the phone and gave him an update. We discussed what to expect. He will be returning to [place] early tomorrow morning. Will continue to monitor for comfort and keep Yuni informed as she is able. (2) Stroke: Admission and Anticipated Discharge Date Admission Date: October 29, 2020 Subjective No response to voice or touch. Per RN he was mildly restless with routine care but settles easily. He has had one dose of IV morphine for restlessness earlier today. Review of Systems Review of Systems: Unobtainable due to reduced consciousness [place] Symptom Assessment Scale PainAD 0/3 Dyspnea by observation 0/3 Drowsiness 3/3 Palliative Performance Score 10% Physical Exam Constitutional: comfortable; no acute distress ENMT: Mouth: + dry oral mucous membranes Respiratory: normal respiratory effort; no labored breathing Cardiovascular: Extremities: no edema Gastrointestinal (Abdomen): Inspection/Auscultation: abdomen not distended Percussion/Palpation: abdomen soft Neurologic: + obtunded Results & Data ([facility]) Vital Signs (Past 12 Hours) Vital Signs Temp Pulse Resp BP Pulse Ox 11/09/20 10:40 98.1 F 89 24 92/63 L 95 PG Care Time/CCT Total # of Minutes Spent Total Time Spent with Patient: Total time spent is greater than 50% in coordination of care (as documented) at patient's floor/unit and/or counseling patient: Coding Level of Care Code 25538 Subseq Hosp Care Lvl 2 Diagnoses Palliative care encounter Z51.5 Stroke I63.9
--- NOTE | 2020-11-09 17:47 | Hospitalist Progress Note ---
Date of Service November 09, 2020 Assessment & Plan (1) Stroke: Unclear if embolic (possibly septic) vs. ischemic. - MRI brain on 11/01 showed left basal ganglia, posterior limb of the left internal capsule, left thalamus, left frontal lobe, and left occipital lobe consistent with acute infarcts. 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 - Carotids on 11/01 showed occlusion/thrombosis of the distal left common carotid, left internal carotid, and left external carotid artery. - Due to comfort care status, no treatment of the CVA. Continue comfort medications. (2) Bacteremia: Coag(-) Staph growing in 3/4 bottles of blood from 10/29. A second coag(-) Staph spc is also growing. - Unclear source as ortho feels knees are not infected and right knee aspirate from 10/31 is still negative. - Stopped abx due to comfort status. (3) Encephalopathy: Stroke vs. metabolic/infectious/toxic encephalopathy from elevation of the BUN. - CT head on 10/29 showed no acute issues. - MRI brain/MRA head as above -> Seemingly more likely the stroke as he has not improved while here. (4) Hypercalcemia: Primary hyperparathyroidism with elevated iPTH all the way back to 2017. - Clearly untreated as it was >1000 on admission; higher than ever. - No treatment. (5) Hypernatremia: - Stopped labs. (6) Acute kidney failure: Charbel elevated BUN/creatinine likely based on dehydration and rhabdomyolysis. - Nephrology followed - No further care per comfort measures. (7) Hyperglycemia: No known DM, and A1c this admission was only 6.0%. Possibly a stress response. - Comfort measures. (8) Skin necrosis: On both knees and chest wall. (9) DVT prophylaxis: None Admission and Anticipated Discharge Date Admission Date: October 29, 2020 Subjective Unable to answer questions. Review of Systems Review of Systems: Unobtainable due to cognitive status Physical Exam Eyes: no conjunctival abnormality and + EOM not intact (Will not track.) ENMT: external ear and nose normal, oropharynx normal Neck: trachea midline, no thyromegaly normal visual inspection Respiratory: + labored breathing; no respiratory distress Auscultation: + crackles and + rales Cardiovascular: Rate/Rhythm: regular rate and regular rhythm Heart Sounds: normal S1 and normal S2 Extremities: no edema Gastrointestinal (Abdomen): Inspection/Auscultation: abdomen normal to inspection; abdomen not distended Musculoskeletal: Head/Neck/Chest: + abnormal inspection of chest wall (Bruising, skin damage) Skin: + ulcer (On knees) Neurologic: + does not move all extremities and + not awake Psychiatric: Orientation: + not alert, + not oriented to person and + uncooperative Results & Data Results & Data ([facility]) Vital Signs (Past 12 Hours) Vital Signs Temp Pulse Resp BP Pulse Ox 11/09/20 10:40 36.7 C 89 24 92/63 L 95 PG Care Time/CCT Total # of Minutes Spent Total Time Spent with Patient: Total time spent is greater than 50% in coordination of care (as documented) at patient's floor/unit and/or counseling patient: Coding Level of Care Code 83800 Subseq Hosp Care Lvl 2 Diagnoses Stroke I63.9 Bacteremia R78.81 Encephalopathy G93.40 Hypercalcemia E83.52 Hypernatremia E87.0 Acute kidney failure N17.9 Hyperglycemia R73.9 Skin necrosis I96 DVT prophylaxis Z29.9
--- NOTE | 2020-11-10 15:26 | Hospitalist Progress Note ---
Date of Service November 10, 2020 Assessment & Plan (1) Stroke: Unclear if embolic (possibly septic) vs. ischemic. - MRI brain on 11/01 showed left basal ganglia, posterior limb of the left internal capsule, left thalamus, left frontal lobe, and left occipital lobe consistent with acute infarcts. 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 - Carotids on 11/01 showed occlusion/thrombosis of the distal left common carotid, left internal carotid, and left external carotid artery. - Due to comfort care status, no treatment of the CVA. Continue comfort medications. No discomfort noted today. (2) Bacteremia: Coag(-) Staph growing in 3/4 bottles of blood from 10/29. A second coag(-) Staph spc is also growing. - Unclear source as ortho feels knees are not infected and right knee aspirate from 10/31 is still negative. - Stopped abx due to comfort status. (3) Encephalopathy: Stroke vs. metabolic/infectious/toxic encephalopathy from elevation of the BUN. - CT head on 10/29 showed no acute issues. - MRI brain/MRA head as above -> Seemingly more likely the stroke as he has not improved while here. (4) Hypercalcemia: Primary hyperparathyroidism with elevated iPTH all the way back to 2017. - Clearly untreated as it was >1000 on admission; higher than ever. - No treatment. (5) Hypernatremia: - Stopped labs. (6) Acute kidney failure: Charbel elevated BUN/creatinine likely based on dehydration and rhabdomyolysis. - Nephrology followed - No further care per comfort measures. (7) Hyperglycemia: No known DM, and A1c this admission was only 6.0%. Possibly a stress response. - Comfort measures. (8) Skin necrosis: On both knees and chest wall. (9) DVT prophylaxis: None Admission and Anticipated Discharge Date Admission Date: October 29, 2020 Subjective No change in mental status. Unable to focus, follow commands, or answer questions. Review of Systems Review of Systems: Unobtainable due to cognitive status Physical Exam Constitutional: + disheveled Eyes: no conjunctival abnormality and + EOM not intact (Will not track.) ENMT: external ear and nose normal, oropharynx normal Neck: trachea midline, no thyromegaly normal visual inspection Respiratory: + labored breathing; no respiratory distress Auscultation: + crackles and + rales Cardiovascular: Rate/Rhythm: regular rate and regular rhythm Heart Sounds: normal S1 and normal S2 Extremities: no edema Gastrointestinal (Abdomen): Inspection/Auscultation: abdomen normal to inspection; abdomen not distended Musculoskeletal: Head/Neck/Chest: + abnormal inspection of chest wall (Bruising, skin damage) Skin: + ulcer (On knees) Neurologic: awake; + does not move all extremities Psychiatric: Orientation: + not alert, + not oriented to person and + uncooperative PG Care Time/CCT Total # of Minutes Spent Total Time Spent with Patient: Total time spent is greater than 50% in coordination of care (as documented) at patient's floor/unit and/or counseling patient: Coding Level of Care Code 56970 Subseq Hosp Care Lvl 1 Diagnoses Stroke I63.9 Bacteremia R78.81 Encephalopathy G93.40 Hypercalcemia E83.52 Hypernatremia E87.0 Acute kidney failure N17.9 Hyperglycemia R73.9 Skin necrosis I96 DVT prophylaxis Z29.9
[2020-11-10] MEDS: MoRPHine SULFATE 2 MG/ML CARP IV PRN (16:28)
[2020-11-11] MEDS: MoRPHine SULFATE 2 MG/ML CARP IV PRN ×5 (03:59→23:23)
--- NOTE | 2020-11-11 15:49 | Hospitalist Progress Note ---
Date of Service November 11, 2020 Assessment & Plan (1) Stroke: Unclear if embolic (possibly septic) vs. ischemic. - MRI brain on 11/01 showed left basal ganglia, posterior limb of the left internal capsule, left thalamus, left frontal lobe, and left occipital lobe consistent with acute infarcts. 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 - Carotids on 11/01 showed occlusion/thrombosis of the distal left common carotid, left internal carotid, and left external carotid artery. - Due to comfort care status, no treatment of the CVA. Continue comfort medications. Some discomfort noted today via him moving his arm and making some soft moaning noises. RN gave morphine which improved this. (2) Bacteremia: Coag(-) Staph growing in 3/4 bottles of blood from 10/29. A second coag(-) Staph spc is also growing. - Unclear source as ortho feels knees are not infected and right knee aspirate from 10/31 is still negative. - Stopped abx due to comfort status. (3) Encephalopathy: Stroke vs. metabolic/infectious/toxic encephalopathy from elevation of the BUN. - CT head on 10/29 showed no acute issues. - MRI brain/MRA head as above -> Seemingly more likely the stroke as he has not improved while here. (4) Hypercalcemia: Primary hyperparathyroidism with elevated iPTH all the way back to 2017. - Clearly untreated as it was >1000 on admission; higher than ever. - No treatment. (5) Hypernatremia: - Stopped labs. (6) Acute kidney failure: Charbel elevated BUN/creatinine likely based on dehydration and rhabdomyolysis. - Nephrology followed - No further care per comfort measures. (7) Hyperglycemia: No known DM, and A1c this admission was only 6.0%. Possibly a stress response. - Comfort measures. (8) Skin necrosis: On both knees and chest wall. (9) DVT prophylaxis: None Admission and Anticipated Discharge Date Admission Date: October 29, 2020 Subjective No response to verbal stimulus. Physical Exam Constitutional: + disheveled Eyes: no conjunctival abnormality and + EOM not intact (Will not track.) ENMT: external ear and nose normal, oropharynx normal Neck: trachea midline, no thyromegaly normal visual inspection Respiratory: + labored breathing; no respiratory distress Auscultation: + crackles and + rales Cardiovascular: Rate/Rhythm: regular rate and regular rhythm Heart Sounds: normal S1 and normal S2 Extremities: no edema Gastrointestinal (Abdomen): Inspection/Auscultation: abdomen normal to ins pection; abdomen not distended Musculoskeletal: Head/Neck/Chest: + abnormal inspection of chest wall (Bruising, skin damage) Skin: + ulcer (On knees) Neurologic: awake; + does not move all extremities Psychiatric: Orientation: alert; + not oriented to person and + uncooperative PG Care Time/CCT Total # of Minutes Spent Total Time Spent with Patient: Total time spent is greater than 50% in coordination of care (as documented) at patient's floor/unit and/or counseling patient: Coding Level of Care Code 41048 Subseq Hosp Care Lvl 2 Diagnoses Stroke I63.9 Bacteremia R78.81 Encephalopathy G93.40 Hypercalcemia E83.52 Hypernatremia E87.0 Acute kidney failure N17.9 Hyperglycemia R73.9 Skin necrosis I96 DVT prophylaxis Z29.9
[2020-11-12] MEDS: LORazepam 1 MG/2 ML VIAL IV PRN ×2 (00:07→13:26)
[2020-11-12] MEDS: GLYCOPYRROLATE 0.2 MG/ML VIAL IV PRN ×2 (01:54→11:02)
[2020-11-12] MEDS: MoRPHine SULFATE 2 MG/ML CARP IV PRN ×2 (03:17→10:43)
[2020-11-12] MEDS ORDERED: STAT IV Infusion **Titration per Protocol STA (12:11)
[2020-11-12] MEDS ORDERED: MoRPHine SULF/NSS 250 MG/250 ML BTL IV SCH (12:15)
[2020-11-12] MEDS ORDERED: GLYCOPYRROLATE 0.2 MG/ML VIAL IV SCH (12:15)
--- NOTE | 2020-11-12 12:39 | Palliative Care Progress Note ---
Date of Service November 12, 2020 Assessment & Plan (1) Palliative care encounter: He appears to be actively dying. Goal is comfort with increased need for prn morphine and moaning with any stimulation. Will start morphine infusion. Will also start routine glycopyrrolate for secretions. I anticipate he will within hours to a day or two. I spoke with his who is being discharged to [facility] today. She would prefer not to see him and remember him as he had been. I also notified his brother, Chuck, in [place]. He understands that Jaspreet is dying and asked about how Yuni was doing. He will be available to assist her with arrangements as needed. Discussed with case management to cancel transfer to [facility]. Discussed with Dr. Kidd. (2) Stroke: Admission and Anticipated Discharge Date Admission Date: October 29, 2020 Subjective Lethargic. Moaning after care. Review of Systems Review of Systems: Unobtainable due to reduced consciousness Palliative Performance Score 10% Physical Exam Constitutional: + disheveled; + uncomfortable ENMT: Mouth: + dry oral mucous membranes Respiratory: no labored breathing audible rhonchi apnea Cardiovascular: unable to auscultate BP Gastrointestinal (Abdomen): Inspection/Auscultation: abdomen not distended Musculoskeletal: mottling extremities cool to touch Neurologic: + obtunded PG Care Time/CCT Total # of Minutes Spent Total Time Spent with Patient: Total time spent is greater than 50% in coordination of care (as documented) at patient's floor/unit and/or counseling patient: Total time spent 40 minutes with more than 50% spent on symptom management, prognosis, plan of care, coordination of care, family update and support. Coding Level of Care Code 32104 Subseq Hosp Care Lvl 3 Diagnoses Palliative care encounter Z51.5 Stroke I63.9
--- NOTE | 2020-11-12 17:10 | Hospitalist Progress Note ---
Date of Service November 12, 2020 Assessment & Plan (1) Stroke: Unclear if embolic (possibly septic) vs. ischemic. - MRI brain on 11/01 showed left basal ganglia, posterior limb of the left internal capsule, left thalamus, left frontal lobe, and left occipital lobe consistent with acute infarcts. 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 - Carotids on 11/01 showed occlusion/thrombosis of the distal left common carotid, left internal carotid, and left external carotid artery. - Due to comfort care status, no treatment of the CVA. Continue comfort medications. Seen by palliative after I saw him who felt that he was near . Started on a morphine drip. Family alerted. (2) Bacteremia: Coag(-) Staph growing in 3/4 bottles of blood from 10/29. A second coag(-) Staph spc is also growing. - Unclear source as ortho feels knees are not infected and right knee aspirate from 10/31 is still negative. - Stopped abx due to comfort status. (3) Encephalopathy: Stroke vs. metabolic/infectious/toxic encephalopathy from elevation of the BUN. - CT head on 10/29 showed no acute issues. - MRI brain/MRA head as above -> Seemingly more likely the stroke as he has not improved while here. (4) Hypercalcemia: Primary hyperparathyroidism with elevated iPTH all the way back to 2017. - Clearly untreated as it was >1000 on admission; higher than ever. - No treatment. (5) Hypernatremia: - Stopped labs. (6) Acute kidney failure: Charbel elevated BUN/creatinine likely based on dehydration and rhabdomyolysis. - Nephrology followed - No further care per comfort measures. (7) Hyperglycemia: No known DM, and A1c this admission was only 6.0%. Possibly a stress response. - Comfort measures. (8) Skin necrosis: On both knees and chest wall. (9) DVT prophylaxis: None Admission and Anticipated Discharge Date Admission Date: October 29, 2020 Subjective No responses today. Review of Systems Review of Systems: Unobtainable due to cognitive status Physical Exam Constitutional: + disheveled Eyes: no conjunctival abnormality and + EOM not intact (Will not track.) ENMT: external ear and nose normal, oropharynx normal Neck: trachea midline, no thyromegaly normal visual inspection Respiratory: + labored breathing; no respiratory distress Auscultation: + crackles and + rales Cardiovascular: Rate/Rhythm: regular rate and regular rhythm Heart Sounds: normal S1 and normal S2 Extremities: no edema Gastrointestinal (Abdomen): Inspection/Auscultation: abdomen normal to inspection; abdomen not distended Musculoskeletal: Head/Neck/Chest: + abnormal inspection of chest wall (Bruising, skin damage) Skin: + ulcer (On knees) Neurologic: awake; + does not move all extremities Psychiatric: Orientation: alert; + not oriented to person and + uncooperative PG Care Time/CCT Total # of Minutes Spent Total Time Spent with Patient: Total time spent is greater than 50% in coordination of care (as documented) at patient's floor/unit and/or counseling patient: Coding Level of Care Code 89471 Subseq Hosp Care Lvl 2 Diagnoses Stroke I63.9 Bacteremia R78.81 Encephalopathy G93.40 Hypercalcemia E83.52 Hypernatremia E87.0 Acute kidney failure N17.9 Hyperglycemia R73.9 Skin necrosis I96 DVT prophylaxis Z29.9
--- NOTE | 2020-11-12 18:18 | Death Pronouncement Note ---
Date of Service November 12, 2020 Pronouncement Note Admission Date Admission Date: October 29, 2020 Date and Time of Date of : 11/12/20 Time of : 17:46 PCOD Preliminary cause of : Stroke of unknown etiology Contributing Factors (1) Stroke: (2) Bacteremia: (3) Encephalopathy: (4) Hypercalcemia: (5) Hypernatremia: (6) Acute kidney failure: (7) Hyperglycemia: (8) Skin necrosis: (9) DVT prophylaxis: Additional Data Confirmation of : no pulse, no respirations, no heart sounds and pupils fixed and dilated Family: contacted Attending/PCP notified?: Yes Attending physician: Fernando Kidd MD Was code activated?: No Autopsy requested?: No claims examiner notified?: No Organ bank notified?: No Advance directives: Yes Coding Level of Care Code D/C Day Management >30 mins Diagnoses Stroke I63.9 Bacteremia R78.81 Encephalopathy G93.40 Hypercalcemia E83.52 Hypernatremia E87.0 Acute kidney failure N17.9 Hyperglycemia R73.9 Skin necrosis I96 DVT prophylaxis Z29.9
--- NOTE | 2020-11-12 18:20 | Discharge Summary ---
Date of Service November 12, 2020 Admission HPI Per Admitting Provider 75-year-old male brought in with obtundation with acute renal failure hypothermia and evidence of likely being incapacitated with pressure sores for some time. At the time of this dictation the patient remains hypothermic he is some slight movement but is not cooperative appears to have some abdominal pain more in the left side. His is also here morbidly ill and she is Covid positive but he had tested Covid negative. I phoned the primary care provider to try to get information on next of kin or even DNR status and the primary care provider cannot supply me with anyone in fact the person identified as the living will contact lens flashing puncher is since and there is no further people listed. Patient is morbidly ill at this point in time he will be admitted to the intensive care unit I did personally speak to the intensive care unit doctor and also the trauma coordinator on-call recommendations would be to continue some half- normal saline given his hyponatremia and wait for further laboratory testing. I did speak with the electrical and instrument engineer about initiating therapy he said move the patient to the ICU and they will assume their care once he arrives. Did recommend repeat Covid testing as the is positive with Covid in this patient so far has been negative. Principal Diagnosis Stroke Discharge Exam No pulse, no respirations, no pupil responses Discharge Data Allergies Allergy/AdvReac Type Severity Reaction Status Date / Time No Known Allergies Unverified 10/29/20 15:32 Consultations 10/29/20 16:42 ED Decision to Admit Stat 10/29/20 17:06 Consult Nephrology Stat 10/29/20 20:47 Consult Repairer Evaporator Routine 10/30/20 11:59 Consult Orthopedic Surgery Routine 10/31/20 14:00 Consult Neurology Routine 11/01/20 12:19 Consult Infectious Diseases Routine 11/01/20 16:37 Consult Palliative Care Routine Ordered Studies 10/29/20 14:42 CT cervical spine wo con Stat CT head/brain wo con Stat 10/29/20 15:16 CT abd pelvis wo con Stat CT chest diagnostic wo con Stat 10/29/20 23:33 US point of care ultrasound Urgent 10/31/20 12:12 CT head/brain wo con Routine 11/01/20 07:26 US carotid doppler BI Urgent 11/01/20 12:17 MR angio head wo con Urgent MR brain wo con Urgent 11/02/20 08:05 CT head/brain wo con Stat Hospital Course (1) Stroke: Patient ceased breathing at 17:46. Confirmed with no pulse, no respirations, and no pupil responses. Unclear if embolic (possibly septic) vs. ischemic. - MRI brain on 11/01 showed left basal ganglia, posterior limb of the left internal capsule, left thalamus, left frontal lobe, and left occipital lobe consistent with acute infarcts. 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 - Carotids on 11/01 showed occlusion/thrombosis of the distal left common carotid, left internal carotid, and left external carotid artery. - Due to comfort care status, no treatment of the CVA. Continue comfort medications. Seen by palliative after I saw him who felt that he was near . Started on a morphine drip. Family alerted. (2) Bacteremia: Coag(-) Staph growing in 3/4 bottles of blood from 10/29. A second coag(-) Staph spc is also growing. - Unclear source as ortho feels knees are not infected and right knee aspirate from 10/31 is still negative. - Stopped abx due to comfort status. (3) Encephalopathy: Stroke vs. metabolic/infectious/toxic encephalopathy from elevation of the BUN. - CT head on 10/29 showed no acute issues. - MRI brain/MRA head as above -> Seemingly more likely the stroke as he has not improved while here. (4) Hypercalcemia: Primary hyperparathyroidism with elevated iPTH all the way back to 2017. - Clearly untreated as it was >1000 on admission; higher than ever. - No treatment. (5) Hypernatremia: - Stopped labs. (6) Acute kidney failure: Charbel elevated BUN/creatinine likely based on dehydration and rhabdomyolysis. - Nephrology followed - No further care per comfort measures. (7) Hyperglycemia: No known DM, and A1c this admission was only 6.0%. Possibly a stress response. - Comfort measures. (8) Skin necrosis: On both knees and chest wall. (9) DVT prophylaxis: None Total Time Total Time Spent Total Time Spent (In Minutes): 35 Discharge Plan Discharge Items Reason For Visit: ACUTE RENAL FAILURE HYPOTENSIVE RHABDOMYOLYSIS Condition on Discharge: Good Follow-up/Referrals: Wallace Holbrook MD [Primary Care Provider] - Medications and DC Order Prescriptions: No Action lisinopril 20 mg tablet 20 mg PO DAILY RF: 0 simvastatin 20 mg tablet 20 mg PO DAILY RF: 0 Super Beta Prostate tablet 1 tab PO DAILY RF: 0 Krames/Other Patient Handouts: A1C Admission Data Admit Date/Time: 10/29/20 17:04 Attending Provider: Fernando Kidd Admit Provider: Hi Wilson Primary Care Provider: Wallace Holbrook Other Providers: Hi Wilson ; Evelyne Fung ; Ericka Rodrigues ; Tye Neal Christina R. ; Papa Engel ; Iker Woodson ; Ej Cain I. ; Zach Torres II ; Ashely Webb ; Charbel Fischer ; Joanne Ivan ; [facility] Coding Level of Care Code D/C Day Management >30 mins Diagnoses Stroke I63.9 Bacteremia R78.81 Encephalopathy G93.40 Hypercalcemia E83.52 Hypernatremia E87.0 Acute kidney failure N17.9 Hyperglycemia R73.9 Skin necrosis I96 DVT prophylaxis Z29.9
--- NOTE | 2020-11-18 14:41 | Coding Query ---
CODING QUERY To promote full compliance with coding requirements relating to patient care, provider participation is requested in all cases of edge cutter uncertainty. Please assist us with the question(s) below: Coding Question(s): There is documentation in the record of Sepsis and Bacteremia with Coag(-) Staph. Due to both being documented, please specify below, in your clinical opinion. ( ) Sepsis. Please specify below, regarding the most likely source: ( ) Unknown likely source ( ) Septic Knee Joints ( x ) Other Source: Please Specify_ Likely cellulitis ( ) Bacteremia. Please specify below, regarding the most likely source: ( ) Unknown likely source ( ) Septic Knee Joints (x ) Other Source: Please Specify_ Likely cellulitis ( ) Other: Please Specify Physician's Response(s): Thank you Negar Hawkins Principal Diagnosis: "that condition established after study, to be chiefly responsible for occasioning the admission of the patient to the hospital for care." Co-Existing Principal Diagnosis: "when two or more diagnoses equally meet the criteria for principal diagnosis as determined by the circumstances of admission, diagnostic work up, and/or therapy provided, and the Alphabetic Index, Tabular List, or another coding guideline does not provide sequencing direction, any one of the diagnoses may be sequenced first." "When the physician has documented what appears to be a current diagnosis in the body of the record, but has not included the diagnosis in the final diagnostic statement, the physician should be asked whether the diagnosis should be added." (Source Coding Clinic 2 QTR90. p3-4) KITD
--- NOTE | 2020-11-18 14:46 | Coding Query ---
CODING QUERY To promote full compliance with coding requirements relating to patient care, provider participation is requested in all cases of braille coder uncertainty. Please assist us with the question(s) below: Coding Question(s): The Discharge Summary documents regarding Encephalopathy, "Encephalopathy: Stroke vs. metabolic/infectious/toxic encephalopathy from elevation of the BUN. - CT head on 10/29 showed no acute issues. - MRI brain/MRA head as above -> Seemingly more likely the stroke as he has not improved while here.". It is not clear if the Metabolic/infectious/toxic encephalopathy are still possible or have been ruled-out completely. Please specify below, in your clinical opinion. ( x ) Metabolic/infectious/toxic encephalopathy are still also possible ( ) Metabolic/infectious/toxic encephalopathy are Ruled-Out ( ) Other: Please Specify Physician's Response(s): Thank you Negar Hawkins Principal Diagnosis: "that condition established after study, to be chiefly responsible for occasioning the admission of the patient to the hospital for care." Co-Existing Principal Diagnosis: "when two or more diagnoses equally meet the criteria for principal diagnosis as determined by the circumstances of admission, diagnostic work up, and/or therapy provided, and the Alphabetic Index, Tabular List, or another coding guideline does not provide sequencing direction, any one of the diagnoses may be sequenced first." "When the physician has documented what appears to be a current diagnosis in the body of the record, but has not included the diagnosis in the final diagnostic statement, the physician should be asked whether the diagnosis should be added." ([facility] QTR90. p3-4) IVANIA
--- NOTE | 2020-11-18 14:56 | Coding Query ---
To promote full compliance with coding requirements relating to patient care, provider participation is requested in all cases of senior software quality analyst uncertainty. Please assist us with the question(s) below: Coding Question(s): The diagnosis(es) below was documented in the earlier chart, then subsequently fell off all further documentation. Please indicate if it is still a possible diagnosis or ruled out. Physician's Response(s): POSSIBLE URINARY TRACT INFECTION (documented through Progress Note on 10/31/20) ( ) Diagnosed and POA ( ) Diagnosed and not POA ( x ) Ruled out ( ) Other (please specify) POSSIBLE ASPIRATION PNEUMONIA (on Critical Care Progress Notes 10/31/20 & 11/01/20) ( x ) Diagnosed and POA ( ) Diagnosed and not POA ( ) Ruled out ( ) Other (please specify) POSSIBLE DKA (documented once on Critical Care Progress Note on 10/30/20) ( ) Diagnosed and POA ( ) Diagnosed and not POA ( x ) Ruled out ( ) Other (please specify) MTDD
--- NOTE | 2020-11-18 15:07 | Coding Query ---
PRESSURE ULCER DOCUMENTATION To promote full compliance with coding requirements relating to patient care, physician participation is requested in all cases of registered sales assistant uncertainty. Please assist us with the question(s) below: Please specify the known or suspected type by placing an "X" within the parenthesis (x). There is documentation of Pressure Sores/Pressure Ulcers in the record, with documentation beginning on the ER of, "The patient is covered in pressure ulcers especially over both knees hips the right side of the chest shoulders and also has bruising in differing stages over almost his entire body". Please specify below, in your clinical opinion regarding the stage of the pressure ulcers. If possible, please check the box that provides the specific stage of the pressure ulcer of Both Knees ( ) Stage I () Stage II ( ) Stage III ( ) Stage IV ( ) Unstageable (xx ) Unable to determine If possible, please check the box that provides the specific stage of the pressure ulcer of Hips ( xx) Stage I ( ) Stage II ( ) Stage III ( ) Stage IV ( ) Unstageable ( ) Unable to determine If possible, please check the box that provides the specific stage of the pressure ulcer of Right Chest ( x) Stage I ( ) Stage II ( ) Stage III ( ) Stage IV ( ) Unstageable ( ) Unable to determine If possible, please check the box that provides the specific stage of the pressure ulcer of Shoulders ( ) Stage I ( ) Stage II ( ) Stage III ( ) Stage IV ( ) Unstageable ( xx) Unable to determine Thank you Negar REDD
== END 2020-11-12 17:47 | disposition expired | DRG 64 ==
LOC: ED 14:33 → 1E 17:04 → SUATTDRO 17:04 → 1E 22:00 → 2W 11-01 14:21